=== PATIENT | female | born 1980 | race Caucasian/White ===

== ENCOUNTER 2019-02-06 20:03 | Emergency (ER) | payer SELFPAY ==
--- NOTE | 2019-02-06 20:47 | ERPHSYRPT ---
- History of Present Illness Time Seen by Provider: 02/06/19 20:30 Source: patient Exam Limitations: no limitations Patient Subjective Stated Complaint: pt states about 2pm today a mirror fell and when attempted to catch it piece of glass cut her knuckles on right hand 5th digit and middle finger knuckle. no active bleeding noted. states areas throbbing Triage Nursing Assessment: A/O. speech clear, C/o throbbing in right fingers. pt states attempted to catch a mirror that was falling and cut knuckles on glass. attempted to glue lacerations closed with super glue and liquid bandage but middle finger laceration has opened back up. no redness or drainage noted. no active bleeding. Physician History: Used home skin glue; one lac held OK the other on the middle finger broke open; no bleeding. Tetanus UTD Allergies/Adverse Reactions: No Known Drug Allergies Allergy (Unverified 11/19/15 22:29) Home Medications: Pregabalin [Lyrica 75 mg Cap] 75 mg PO BID 02/06/19 [History] Hx Tetanus, Diphtheria Vaccination/Date Given: Yes Hx Influenza Vaccination/Date Given: No Hx Pneumococcal Vaccination/Date Given: No Immunizations Up to Date: Yes - Past Medical History Pertinent Past Medical History: No Neurological History: No Pertinent History ENT History: No Pertinent History Cardiac History: No Pertinent History Respiratory History: No Pertinent History Endocrine Medical History: No Pertinent History Musculoskeletal History: No Pertinent History GI Medical History: No Pertinent History History: No Pertinent History Psycho-Social History: Anxiety Female Reproductive Disorders: No Pertinent History Other Medical History: tail bone fracture, toe fracture - Past Surgical History Past Surgical History: Yes Neuro Surgical History: No Pertinent History Cardiac: No Pertinent History Respiratory: No Pertinent History Gastrointestinal: Appendectomy Genitourinary: No Pertinent History Musculoskeletal: No Pertinent History Female Surgical History: Tubal Ligation Other Surgical History: rhinoplasty - Social History Smoking Status: Current every day smoker How long have you smoked: 16 Exposure to second hand smoke: Yes Drug Use: none Patient Lives Alone: No - Female History Hx Last Menstrual Period: 3 weeks ago Hx Now: No - Nursing Vital Signs Nursing Vital Signs: Initial Vital Signs Temperature 98.3 F 02/06/19 20:03 Pulse Rate 83 02/06/19 20:03 Respiratory Rate 16 02/06/19 20:03 Blood Pressure 101/69 02/06/19 20:03 O2 Sat by Pulse Oximetry 99 02/06/19 20:03 Pain Scale Pain Intensity 1 - Physical Exam SpO2: 99 - Course Nursing assessment & vital signs reviewed: Yes Ordered Tests: Active Orders 24 hr Category Date Time Status Wound Care STAT Care 02/06/19 20:47 Active - Departure Departure Disposition: Home Clinical Impression: Finger laceration Qualifiers: Encounter type: initial encounter Finger: middle finger Damage to nail status: without damage Foreign body presence: without foreign body Laterality: right Qualified Code(s): S61.212A - Laceration without foreign body of right middle finger without damage to nail, initial encounter Condition: Stable Critical Care Time: No Referrals: STAN MORTON [Primary Care Provider] - Instructions: Wound Care (DC) Additional Instructions: Watch for signs of infection; follow up with primary care as needed.
[2019-02-06 21:10] VITALS: BP 93/71; PULSE 82
[2019-02-06 22:47] VITALS: O2SAT 99
== END 2019-02-06 20:50 | disposition home or self-care (01) ==
LOC: ED 20:03
DX: S61.212A Laceration without foreign body of right middle finger without damage to nail, initial encounter (principal); W25.XXXA Contact with sharp glass, initial encounter
CPT/HCPCS: 99283

== ENCOUNTER 2020-09-01 21:05 | Emergency (ER) | payer OTHER ==
[2020-09-01] MEDS ORDERED: Zofran 4 MG/2 ML VIAL IV ONE (21:16)
[2020-09-01] MEDS ORDERED: PROTONIX 40 MG IV IV ONE ×2 (21:16→21:28)
[2020-09-01] MEDS ORDERED: Sodium Chloride 0.9% 1000 ML 1,000 ML IV STA (21:16)
--- NOTE | 2020-09-01 21:22 | ERPHSYRPT ---
- History of Present Illness Time Seen by Provider: 09/01/20 21:15 Historian: patient Exam Limitations: no limitations Physician History: This patient is a 40-year-old white female who states that she has been vomiting intermittently for a month. She does not have a primary care physician has never seen a cathode washer. She states that she has had an appendectomy in the past. Patient states that she has no known drug allergies and she is not on any medications. Patient states that she cannot hold anything down. She has never had anything like this in the past. She does not have a cough. She has no fever. She has no chest pain. She is not short of breath. Timing/Duration: intermittent, worse, other (Intermittent vomiting for 1 month) Activities at Onset: none Quality: aching Abdominal Pain Onset Location: RUQ Pain Radiation: RUQ Severity of Pain-Max: moderate Severity of Pain-Current: moderate Modifying Factors: Improves With: vomiting Associated Symptoms: loss of appetite, nausea, vomiting, No chest pain, No diaphoresis, No diarrhea, No fever/chills Previous symptoms: no prior history Allergies/Adverse Reactions: No Known Drug Allergies Allergy (Verified 09/01/20 21:38) Hx Tetanus, Diphtheria Vaccination/Date Given: Yes Hx Influenza Vaccination/Date Given: No Hx Pneumococcal Vaccination/Date Given: No Travel Risk - International Travel Have you traveled outside of the country in past 3 weeks: No - Coronavirus Screening Are you exhibiting any of the following symptoms?: No Close contact with a COVID-19 positive Pt in past 14-21 Days: No - Review of Systems Constitutional: Weakness Eyes: No Symptoms Ears, Nose, & Throat: No Symptoms Respiratory: No Symptoms Cardiac: No Symptoms Abdominal/Gastrointestinal: Abdominal Pain, Nausea, Vomiting, No Diarrhea Genitourinary Symptoms: No Symptoms Musculoskeletal: No Symptoms Skin: No Symptoms Neurological: No Symptoms Psychological: No Symptoms Endocrine: No Symptoms Hematologic/Lymphatic: No Symptoms Immunological/Allergic: No Symptoms All Other Systems: Reviewed and Negative - Past Medical History Pertinent Past Medical History: No Neurological History: No Pertinent History ENT History: No Pertinent History Cardiac History: No Pertinent History Respiratory History: No Pertinent History Endocrine Medical History: No Pertinent History Musculoskeletal History: No Pertinent History GI Medical History: No Pertinent History History: No Pertinent History Psycho-Social History: Anxiety Female Reproductive Disorders: No Pertinent History Other Medical History: tail bone fracture, toe fracture - Past Surgical History Past Surgical History: Yes Neuro Surgical History: No Pertinent History Cardiac: No Pertinent History Respiratory: No Pertinent History Gastrointestinal: Appendectomy Genitourinary: No Pertinent History Musculoskeletal: No Pertinent History Female Surgical History: Tubal Ligation Other Surgical History: rhinoplasty - Social History Smoking Status: Current every day smoker How long have you smoked: 16 Exposure to second hand smoke: Yes Drug Use: none Patient Lives Alone: No - Nursing Vital Signs Nursing Vital Signs: Initial Vital Signs Temperature 98.3 F 09/01/20 21:13 Pulse Rate 130 H 09/01/20 21:13 Respiratory Rate 18 09/01/20 21:13 Blood Pressure 113/88 09/01/20 21:13 O2 Sat by Pulse Oximetry 98 09/01/20 21:13 Pain Scale Pain Intensity 6 - Physical Exam General Appearance: mild distress, alert, anxiety, thin Eye Exam: PERRL/EOMI, eyes nml inspection Ears, Nose, Throat Exam: normal ENT inspection, moist mucous membranes Neck Exam: normal inspection, non-tender, supple, full range of motion Respiratory Exam: normal breath sounds, lungs clear, airway intact, No chest tenderness, No respiratory distress Cardiovascular Exam: regular rate/rhythm, normal heart sounds, normal peripheral pulses Gastrointestinal/Abdomen Exam: soft, normal bowel sounds, tenderness (Right upper quadrant), guarding, No rebound Pelvic Exam: not done Rectal Exam: not done Back Exam: normal inspection, normal range of motion, No CVA tenderness, No vertebral tenderness Extremity Exam: normal inspection, normal range of motion, pelvis stable Neurologic Exam: alert, oriented x 3, cooperative, 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 She stated this is not normal for her she states that her legs ache) Skin Exam: normal color, warm, dry Lymphatic Exam: No adenopathy SpO2 Interpretation: normal O2 Delivery: Room Air - Course Nursing assessment & vital signs reviewed: Yes Ordered Tests: Active Orders 24 hr Category Date Time Status IV Insertion STAT Care 09/01/20 21:16 Active ABDOMEN AND PELVIS W/0 CONTRAS [CT] Stat Exams 09/01/20 21:42 Taken AMYLASE Stat Lab 09/01/20 21:25 Completed BLOOD CULTURE Stat Lab 09/01/20 21:25 Received CBC W DIFF Stat Lab 09/01/20 21:25 Completed CMP Stat Lab 09/01/20 21:25 Completed HCG,QUALITATIVE URINE Stat Lab 09/01/20 21:16 Ordered INFLUENZA A+B SHEBA Stat Lab 09/01/20 21:30 Received LIPASE Stat Lab 09/01/20 21:25 Completed Lactic Acid Stat Lab 09/01/20 21:22 Completed MAG [MAGNESIUM] Stat Lab 09/01/20 21:20 Completed UA W/RFX UR CULTURE Stat Lab 09/01/20 21:16 Ordered Urine Triage Profile Stat Lab 09/01/20 21:16 Ordered Medication Summary Generic Name Dose Route Start Last Admin Trade Name Freq PRN Reason Stop Dose Admin Sodium Chloride 1,000 mls @ 999 mls/hr 09/01/20 21:16 09/01/20 21:31 Sodium Chloride 0.9% 1000 Ml IV 09/01/20 22:16 999 mls/hr .Q1H1M STA Administration Sodium Chloride 1,000 mls @ 999 mls/hr 09/01/20 21:50 09/01/20 22:10 Sodium Chloride 0.9% 1000 Ml IV 09/01/20 22:50 Not Given .Q1H1M STA Potassium Chloride 20 meq in 100 mls @ 50 mls/hr 09/01/20 22:10 Potassium Chloride 20 Meq In Water 100ml IV 09/02/20 00:09 STAT ONE Potassium Chloride/Sodium Chloride 1,000 mls @ 100 mls/hr 09/01/20 22:15 Sodium Chloride 0.9% W/ 20 Meq Kcl/Liter IV 10/01/20 22:14 .Q10H JULIANNA Discontinued Medications Generic Name Dose Route Start Last Admin Trade Name Freq PRN Reason Stop Dose Admin Sodium Chloride Confirm 09/01/20 21:28 Sodium Chloride 0.9% 1000 Ml Administered 09/01/20 21:29 Dose 1,000 mls @ ud .ROUTE .STK-MED ONE Ondansetron HCl 4 mg 09/01/20 21:16 09/01/20 21:30 Zofran 4 Mg/2 Ml Vial IV 09/01/20 21:17 4 mg STAT ONE Administration Ondansetron HCl Confirm 09/01/20 21:28 Zofran 4 Mg/2 Ml Vial Administered 09/01/20 21:29 Dose 4 mg .ROUTE .STK-MED ONE Pantoprazole Sodium 40 mg 09/01/20 21:16 09/01/20 21:29 Protonix 40 Mg Iv IV 09/01/20 21:17 40 mg STAT ONE Administration Pantoprazole Sodium Confirm 09/01/20 21:28 Protonix 40 Mg Iv Administered 09/01/20 21:29 Dose 40 mg IV .STK-MED ONE Lab/Rad Data: Laboratory Result Diagrams 09/01/20 21:25 09/01/20 21:25 Laboratory Results 09/01/20 09/01/20 09/01/20 Range/Units 21:25 21:25 21:22 WBC 11.6 H (4.0-10.5) K/mm3 RBC 3.79 L (4.1-5.4) M/mm3 Hgb 13.4 (12.0-16.0) gm/dl Hct 39.3 (35-47) % MCV 103.7 H (78-100) fl MCH 35.4 H (26-32) pg MCHC 34.1 (32-36) g/dl RDW 14.2 H (11.5-14.0) % Plt Count 401 (150-450) K/mm3 MPV 10.8 (7.5-11.0) fl Gran % 61.3 (36.0-66.0) % Eos # (Auto) 0.10 (0-0.5) Absolute Lymphs (auto) 3.13 (1.0-4.6) Absolute Monos (auto) 1.20 (0.0-1.3) Lymphocytes % 27.1 (24.0-44.0) % Monocytes % 10.4 (0.0-12.0) % Eosinophils % 0.9 (0.00-5.0) % Basophils % 0.3 (0.0-0.4) % Absolute Granulocytes 7.09 H (1.4-6.9) Basophils # 0.03 (0-0.4) Sodium 128 L (137-145) mmol/L Potassium 2.3 L* (3.5-5.1) mmol/L Chloride 96 L (98-107) mmol/L Carbon Dioxide 18 L (22-30) mmol/L Anion Gap 15.7 H (5-15) MEQ/L BUN 5 L (7-17) mg/dL Creatinine 0.64 (0.52-1.04) mg/dL Estimated GFR > 60.0 ML/MIN Glucose 117 H (74-106) mg/dL Lactic Acid 5.4 H (0.4-2.0) Calcium 8.8 (8.4-10.2) mg/dL Magnesium (1.6-2.3) mg/dL Total Bilirubin 0.40 (0.2-1.3) mg/dL AST 35 (14-36) U/L ALT 18 (0-35) U/L Alkaline Phosphatase 84 (38-126) U/L Serum Total Protein 6.5 (6.3-8.2) g/dL Albumin 3.6 (3.5-5.0) g/dL Amylase 56 (30-110) U/L Lipase 50 (23-300) U/L 09/01/20 Range/Units 21:20 WBC (4.0-10.5) K/mm3 RBC (4.1-5.4) M/mm3 Hgb (12.0-16.0) gm/dl Hct (35-47) % MCV (78-100) fl MCH (26-32) pg MCHC (32-36) g/dl RDW (11.5-14.0) % Plt Count (150-450) K/mm3 MPV (7.5-11.0) fl Gran % (36.0-66.0) % Eos # (Auto) (0-0.5) Absolute Lymphs (auto) (1.0-4.6) Absolute Monos (auto) (0.0-1.3) Lymphocytes % (24.0-44.0) % Monocytes % (0.0-12.0) % Eosinophils % (0.00-5.0) % Basophils % (0.0-0.4) % Absolute Granulocytes (1.4-6.9) Basophils # (0-0.4) Sodium (137-145) mmol/L Potassium (3.5-5.1) mmol/L Chloride (98-107) mmol/L Carbon Dioxide (22-30) mmol/L Anion Gap (5-15) MEQ/L BUN (7-17) mg/dL Creatinine (0.52-1.04) mg/dL Estimated GFR ML/MIN Glucose (74-106) mg/dL Lactic Acid (0.4-2.0) Calcium (8.4-10.2) mg/dL Magnesium 1.6 (1.6-2.3) mg/dL Total Bilirubin (0.2-1.3) mg/dL AST (14-36) U/L ALT (0-35) U/L Alkaline Phosphatase (38-126) U/L Serum Total Protein (6.3-8.2) g/dL Albumin (3.5-5.0) g/dL Amylase (30-110) U/L Lipase (23-300) U/L - Progress Progress: improved, pain not gone completely, re-examined Progress Note: 09/01/20 22:12 CAT scan of the abdomen pelvis shows a small hiatal hernia, moderately distended gallbladder without stones and a left ovarian cyst measuring 3.7 cm Counseled pt/family regarding: lab results, diagnosis, need for follow-up, rad results - Departure Departure Disposition: Home Clinical Impression: Hypokalemia, Vomiting Condition: Stable Critical Care Time: No Additional Instructions: Drink plenty of fluids. Avoid fatty greasy spicy foods. Take your medications as prescribed. Follow-up on 09/03/2020 and the lab to have your potassium level rechecked. Prescriptions: Potassium Chloride 10 Meq Tab* [Klor Con 10 MEQ] 10 meq PO BID #10 tab Pantoprazole 20 mg [Protonix 20MG Tablet] 20 mg PO DAILY #10 tab Ondansetron HCl [Zofran] 4 mg PO TID PRN #10 tablet PRN Reason: Nausea/Vomiting
[2020-09-01] MEDS ORDERED: Sodium Chloride 0.9% 1000 ML 1,000 ML ONE ×2 (21:28→23:11)
[2020-09-01] MEDS ORDERED: Zofran 4 MG/2 ML VIAL ONE (21:28)
[2020-09-01 21:39] LABS: Absolute Neutrophil Ct (ANC) 7.09 (1.4-6.9); BASOPHIL % 0.3 % (0.0-0.4); Basophil (Absolute #) 0.03 (0-0.4); Eosinophil % 0.9 % (0.00-5.0); Hematocrit 39.3 % (35-47); Hemoglobin 13.4 gm/dl (12.0-16.0); Lymphocyte (Absolute #) 3.13 (1.0-4.6); Lymphocytes % 27.1 % (24.0-44.0); Mean Cell Volume 103.7 fl (78-100); Mean Corpuscular Hemoglobin 35.4 pg (26-32); Mean Corpuscular Hgb Concent. 34.1 g/dl (32-36); Mean Platelet Volume 10.8 fl (7.5-11.0); Monocytes % 10.4 % (0.0-12.0); Neutrophil % 61.3 % (36.0-66.0); Platelet Count 401 K/mm3 (150-450); Red Blood Count 3.79 M/mm3 (4.1-5.4); Red Cell Distribution Width 14.2 % (11.5-14.0); White Blood Count 11.6 K/mm3 (4.0-10.5)
[2020-09-01 21:52] LABS: ALBUMIN 3.6 g/dL (3.5-5.0); ALKALINE PHOSPHATASE 84 U/L (38-126); AMYLASE 56 U/L (30-110); ANION GAP 15.7 MEQ/L (5-15); BLOOD UREA NITROGEN 5 mg/dL (7-17); CHLORIDE 96 mmol/L (98-107); Calcium 8.8 mg/dL (8.4-10.2); Carbon Dioxide 18 mmol/L (22-30); Creatinine 1 0.64 mg/dL (0.52-1.04); EST GLOMERULAR FILTRATION RATE > 60.0 ML/MIN; Glucose 117 mg/dL (74-106); LIPASE 50 U/L (23-300); SGOT/AST 35 U/L (14-36); SODIUM 128 mmol/L (137-145); Total Protein 6.5 g/dL (6.3-8.2)
[2020-09-01 21:59] LABS: SGPT/ALT 18 U/L (0-35)
[2020-09-01 22:01] LABS: Potassium 2.3 mmol/L (3.5-5.1)
[2020-09-01] MEDS ORDERED: POTASSIUM CHLORIDE 20 mEq IN WATER 100ML 20 MEQ/100 ML BAG IV ONE (22:10)
[2020-09-01] MEDS: Sodium Chloride 0.9% 1000 ML 1,000 ML IV STA ×2 (22:10→23:22)
[2020-09-01] MEDS ORDERED: Sodium Chloride 0.9% W/ 20 mEq KCl/LITER 1,000 ML IV SCH (22:15)
[2020-09-01] MEDS ORDERED: Hydromorphone 1 mg/ml Injection IV ONE (22:18)
[2020-09-01] MEDS ORDERED: Sodium Chloride 0.9% W/ 20 mEq KCl/LITER 1,000 ML IV ONE (22:21)
[2020-09-01] MEDS ORDERED: Hydromorphone 1 mg/ml Injection ONE (22:21)
[2020-09-01 22:24] LABS: INFLUENZA A NEGATIVE (NEGATIVE); INFLUENZA B NEGATIVE (NEGATIVE)
[2020-09-01] MEDS ORDERED: POTASSIUM CHLORIDE 20 mEq IN WATER 100ML 100 ML IV ONE (23:11)
[2020-09-02 01:04] VITALS: O2SAT 98
[2020-09-02 01:52] LABS: Amourphous Crystal FEW /HPF (NEGATIVE); Appearance SLIGHTLY CLOUDY (CLEAR); Bacteria MANY /HPF (NEGATIVE); Bilirubin NEGATIVE (NEGATIVE); Blood SMALL Ery/ul (0-5); Epithelial Cells RARE /HPF (FEW); Glucose NEGATIVE (NEGATIVE); Ketones NEGATIVE (NEGATIVE); Leukocyte Esterase SMALL (NEGATIVE); Mucus SLIGHT /HPF (NEGATIVE); Nitrite POSITIVE (NEGATIVE); Protein,Urine Dip NEGATIVE (Negative); Specific Gravity 1.002 (1.005-1.025); Urobilinogen NEGATIVE mg/dL (0-1)
[2020-09-02 01:54] LABS: RBC 0-2 /HPF (0-2)
[2020-09-02] MEDS ORDERED: Levofloxacin 500 MG Tablet PO ONE (02:02)
[2020-09-02 02:03] LABS: Amphetamine,Urine NEGATIVE (NEGATIVE); Barbiturate,Urine NEGATIVE (NEGATIVE); Benzodiazepine,Urine NEGATIVE (NEGATIVE); Cocaine,Urine NEGATIVE (NEGATIVE); Methadone,Urine NEGATIVE (NEGATIVE); Opiate,Urine NEGATIVE (NEGATIVE); PCP,Urine NEGATIVE (NEGATIVE); THC,Urine NEGATIVE (NEGATIVE)
[2020-09-02] MEDS ORDERED: Levofloxacin 500 MG Tablet ONE (02:05)
[2020-09-02 02:25] VITALS: BP 112/71; PULSE 84
--- NOTE | 2020-09-02 09:19 | XRAY ---
Indication: Vomiting. Right abdomen pain 1 month. Multiple contiguous axial images obtained through the abdomen and pelvis without contrast as ordered. Comparison: None Lung bases demonstrates mild emphysema and left base fibrosis/scarring. No infiltrate or effusion. Heart is not enlarged. Small hiatal hernia. Noncontrasted stomach and bowel loops appear nonobstructed. Appendectomy reported. 3.7 cm left ovary cyst. No free fluid/air. Gallbladder is moderately distended without gallstones. Splenic calcified granulomas. Remaining liver, gallbladder, pancreas, spleen, adrenal glands, kidneys, ureters, bladder, uterus, and aorta appear unremarkable for noncontrast exam. Osseous structures intact. Impression: 1. 3.7 cm left ovary cyst better evaluated with pelvic sonogram if clinically warranted. 2. Distended gallbladder. Gallbladder sonogram may yield further information. 3. Small hiatal hernia and pulmonary emphysema. 4. Remaining CT abdomen/pelvis without contrast exam is negative.
== END 2020-09-02 02:24 | disposition home or self-care (01) ==
LOC: ED 21:05
DX: N39.0 Urinary tract infection, site not specified (principal); E87.6 Hypokalemia; Z79.899 Other long term (current) drug therapy; K44.9 Diaphragmatic hernia without obstruction or gangrene; R11.2 Nausea with vomiting, unspecified; R63.0 Anorexia
CPT/HCPCS: 36000; 36415; 74176; 80053; 80307; 81001; 82150; 83605; 83690; 83735; 84703; 85025; 87040; 87077; 87086; 87186; 87400; 96360; 96365; 96366; 96374; 96375; 99284; J1170; J2405; J3480; A9270-GY

== ENCOUNTER 2020-09-08 15:02 | Emergency (ER) | payer OTHER ==
[2020-09-08 16:03] LABS: Absolute Neutrophil Ct (ANC) 7.72 (1.4-6.9); BASOPHIL % 0.3 % (0.0-0.4); Basophil (Absolute #) 0.03 (0-0.4); Eosinophil % 0.8 % (0.00-5.0); Eosinophil (Absolute #) 0.08 (0-0.5); Hematocrit 32.3 % (35-47); Hemoglobin 10.6 gm/dl (12.0-16.0); Lymphocyte (Absolute #) 1.21 (1.0-4.6); Lymphocytes % 12.1 % (24.0-44.0); Mean Cell Volume 107.7 fl (78-100); Mean Corpuscular Hemoglobin 35.3 pg (26-32); Mean Corpuscular Hgb Concent. 32.8 g/dl (32-36); Mean Platelet Volume 9.8 fl (7.5-11.0); Monocyte (Absolute #) 0.93 (0.0-1.3); Monocytes % 9.3 % (0.0-12.0); Neutrophil % 77.5 % (36.0-66.0); Platelet Count 396 K/mm3 (150-450)
[2020-09-08 16:12] LABS: ALBUMIN 2.7 g/dL (3.5-5.0); ANION GAP 12.1 MEQ/L (5-15); BILIRUBIN,TOTAL 0.1 mg/dL (0.2-1.3); Calcium 7.8 mg/dL (8.4-10.2); Creatinine 1 4.35 mg/dL (0.52-1.04); MAGNESIUM 1.3 mg/dL (1.6-2.3); Potassium 3.6 mmol/L (3.5-5.1); Total Protein 5.4 g/dL (6.3-8.2)
--- NOTE | 2020-09-08 16:17 | ERPHSYRPT ---
- History of Present Illness Time Seen by Provider: 09/08/20 15:30 Source: patient Exam Limitations: no limitations Patient Subjective Stated Complaint: Pt c/o of shooting pain in hands and feet, muscle contractions in legs Triage Nursing Assessment: Pt was brought to the ER by her son, eliz diaz, rates leg and hand pain as 7/10, states that her legs feel like jello when she stands, pulses normal, skin n/w/d Physician History: Patient is a 40-year-old female presents to our ED with complaints of pain in her hands legs and feet. Symptoms have been ongoing for 2 days. Patient also states her legs feel weak. She has a history of hypokalemia. Symptoms are progressive. Symptoms are mild to moderate in intensity. No specific worsening improving factors. Patient voices no other complaints or concerns at this time. Timing/Duration: yesterday Severity: moderate Modifying Factors: Improves With: nothing Associated Symptoms: denies symptoms Allergies/Adverse Reactions: No Known Drug Allergies Allergy (Verified 09/08/20 15:31) Home Medications: No Reportable Medications [No Reported Medications] 09/08/20 [History] Hx Tetanus, Diphtheria Vaccination/Date Given: Yes Hx Influenza Vaccination/Date Given: No Hx Pneumococcal Vaccination/Date Given: No Travel Risk - International Travel Have you traveled outside of the country in past 3 weeks: No - Coronavirus Screening Are you exhibiting any of the following symptoms?: No Close contact with a COVID-19 positive Pt in past 14-21 Days: No - Review of Systems Constitutional: No Symptoms, No Fever, No Chills Eyes: No Symptoms Ears, Nose, & Throat: No Symptoms Respiratory: No Symptoms, No Cough, No Dyspnea Cardiac: No Symptoms, No Chest Pain, No Edema, No Syncope Abdominal/Gastrointestinal: No Symptoms, No Abdominal Pain, No Nausea, No Vomiting, No Diarrhea Genitourinary Symptoms: No Symptoms, No Dysuria Musculoskeletal: No Symptoms, No Back Pain, No Neck Pain Skin: No Symptoms, No Rash Neurological: No Symptoms, No Dizziness, No Focal Weakness, No Sensory Changes Psychological: No Symptoms Endocrine: No Symptoms Hematologic/Lymphatic: No Symptoms Immunological/Allergic: No Symptoms All Other Systems: Reviewed and Negative - Past Medical History Pertinent Past Medical History: Yes Neurological History: No Pertinent History ENT History: No Pertinent History Cardiac History: No Pertinent History Respiratory History: No Pertinent History Endocrine Medical History: No Pertinent History Musculoskeletal History: No Pertinent History, Fibromyalgia GI Medical History: No Pertinent History History: No Pertinent History Psycho-Social History: Anxiety Female Reproductive Disorders: No Pertinent History Other Medical History: tail bone fracture, toe fracture - Past Surgical History Past Surgical History: Yes Neuro Surgical History: No Pertinent History Cardiac: No Pertinent History Respiratory: No Pertinent History Gastrointestinal: Appendectomy Genitourinary: No Pertinent History Musculoskeletal: No Pertinent History Female Surgical History: Tubal Ligation Other Surgical History: rhinoplasty - Social History Smoking Status: Current every day smoker How long have you smoked: 16 Exposure to second hand smoke: Yes Drug Use: none Patient Lives Alone: No - Female History Hx Now: No (tubal) - Nursing Vital Signs Nursing Vital Signs: Initial Vital Signs Temperature 98.9 F 09/08/20 15:22 Pulse Rate 84 09/08/20 15:22 Blood Pressure 113/81 09/08/20 15:22 O2 Sat by Pulse Oximetry 99 09/08/20 15:22 Pain Scale Pain Intensity 7 - Physical Exam General Appearance: no apparent distress, alert, other (Patient sitting up in bed. She is conversant well-appearing no acute distress. However there are spasms observed of her feet and her hands.) Eye Exam: PERRL/EOMI, eyes nml inspection Ears, Nose, Throat Exam: normal ENT inspection, TMs normal, pharynx normal, moist mucous membranes Neck Exam: normal inspection, non-tender, supple, full range of motion Respiratory Exam: normal breath sounds, lungs clear, No respiratory distress Cardiovascular Exam: regular rate/rhythm, normal heart sounds, normal peripheral pulses Gastrointestinal/Abdomen Exam: soft, normal bowel sounds, No tenderness, No mass Back Exam: normal inspection, normal range of motion, No CVA tenderness, No vertebral tenderness Extremity Exam: normal inspection, normal range of motion, pelvis stable Neurologic Exam: alert, oriented x 3, cooperative, normal mood/affect, nml cerebellar function, nml station & gait, sensation nml, No motor deficits Skin Exam: normal color, warm, dry, No rash Lymphatic Exam: No adenopathy SpO2: 99 O2 Delivery: Room Air - Course Nursing assessment & vital signs reviewed: Yes EKG Interpreted by Me: RATE (89), Sinus Rhythm, NORMAL AXIS, NORMAL INTERVALS Ordered Tests: Active Orders 24 hr Category Date Time Status Travelift Operator STAT Care 09/08/20 15:31 Active EKG-ER Only STAT Care 09/08/20 15:30 Active IV Insertion STAT Care 09/08/20 15:30 Active Pulse Oximetry (ED) STAT Care 09/08/20 15:30 Active CHEST 1 VIEW (PORTABLE) Stat Exams 09/08/20 15:33 Completed CBC W DIFF Stat Lab 09/08/20 15:50 Completed CK-Creatinine Phosphokinase Stat Lab 09/08/20 15:50 Completed CMP Stat Lab 09/08/20 15:50 Completed CULTURE,URINE Stat Lab 09/08/20 17:22 Received HCG,QUALITATIVE URINE Stat Lab 09/08/20 17:22 Completed MAGNESIUM Stat Lab 09/08/20 15:50 Completed TROPONIN Q3H Lab 09/08/20 15:50 Completed TROPONIN Q3H Lab 09/08/20 18:45 Ordered TROPONIN Q3H Lab 09/08/20 21:45 Ordered TROPONIN Q3H Lab 09/09/20 00:45 Ordered TROPONIN Q3H Lab 09/09/20 03:45 Ordered TSH [TSH, 3RD Generation] Stat Lab 09/08/20 15:50 Completed UA W/RFX UR CULTURE Stat Lab 09/08/20 17:22 Completed Medication Summary Generic Name Dose Route Start Last Admin Trade Name Freq PRN Reason Stop Dose Admin Ceftriaxone Sodium/Dextrose 1 g in 50 mls @ 100 mls/hr 09/08/20 18:05 Rocephin 1 Gm-D5w 50 Ml Bag IV 09/08/20 18:34 STAT ONE Sodium Chloride 1,000 mls @ 100 mls/hr 09/08/20 18:15 Sodium Chloride 0.9% 1000 Ml IV 10/08/20 18:14 .Q10H JULIANNA Magnesium Sulfate/Dextrose 100 mls @ 100 mls/hr 09/08/20 18:15 Magnesium 1 Gm / 100 Ml D5w IV 09/08/20 20:14 Q1H JULIANNA Lab/Rad Data: Laboratory Result Diagrams 09/08/20 15:50 09/08/20 15:50 Laboratory Results 09/08/20 09/08/20 09/08/20 Range/Units 17:22 17:22 15:50 WBC 10.0 (4.0-10.5) K/mm3 RBC 3.00 L (4.1-5.4) M/mm3 Hgb 10.6 L (12.0-16.0) gm/dl Hct 32.3 L (35-47) % MCV 107.7 H (78-100) fl MCH 35.3 H (26-32) pg MCHC 32.8 (32-36) g/dl RDW 14.0 (11.5-14.0) % Plt Count 396 (150-450) K/mm3 MPV 9.8 (7.5-11.0) fl Gran % 77.5 H (36.0-66.0) % Eos # (Auto) 0.08 (0-0.5) Absolute Lymphs (auto) 1.21 (1.0-4.6) Absolute Monos (auto) 0.93 (0.0-1.3) Lymphocytes % 12.1 L (24.0-44.0) % Monocytes % 9.3 (0.0-12.0) % Eosinophils % 0.8 (0.00-5.0) % Basophils % 0.3 (0.0-0.4) % Absolute Granulocytes 7.72 H (1.4-6.9) Basophils # 0.03 (0-0.4) Sodium (137-145) mmol/L Potassium (3.5-5.1) mmol/L Chloride (98-107) mmol/L Carbon Dioxide (22-30) mmol/L Anion Gap (5-15) MEQ/L BUN (7-17) mg/dL Creatinine (0.52-1.04) mg/dL Estimated GFR ML/MIN Glucose (74-106) mg/dL Calcium (8.4-10.2) mg/dL Magnesium (1.6-2.3) mg/dL Total Bilirubin (0.2-1.3) mg/dL AST (14-36) U/L ALT (0-35) U/L Alkaline Phosphatase (38-126) U/L Creatine Kinase (30-135) U/L Troponin I (0.000-0.034) ng/mL Serum Total Protein (6.3-8.2) g/dL Albumin (3.5-5.0) g/dL TSH 3rd Generation (0.47-4.68) mIU/L Urine Color YELLOW (YELLOW) Urine Appearance TURBID (CLEAR) Urine pH 6.0 (5-6) Ur Specific [place] 1.010 (1.005-1.025) Urine Protein 100 (Negative) Urine Ketones NEGATIVE (NEGATIVE) Urine Blood SMALL (0-5) Cristofer/ul Urine Nitrite NEGATIVE (NEGATIVE) Urine Bilirubin NEGATIVE (NEGATIVE) Urine Urobilinogen NEGATIVE (0-1) mg/dL Ur Leukocyte Esterase LARGE (NEGATIVE) Urine WBC (Auto) >100 (0-5) /HPF Urine RBC (Auto) 51-100 (0-2) /HPF U Epithel Cells (Auto) PACKED (FEW) /HPF Urine Bacteria (Auto) MANY (NEGATIVE) /HPF Urine Mucus (Auto) SLIGHT (NEGATIVE) /HPF Urine Culture Reflexed YES (NO) Urine Glucose NEGATIVE (NEGATIVE) mg/dL Urine HCG, Qual NEGATIVE (Negative) 09/08/20 09/08/20 09/08/20 Range/Units 15:50 15:50 15:50 WBC (4.0-10.5) K/mm3 RBC (4.1-5.4) M/mm3 Hgb (12.0-16.0) gm/dl Hct (35-47) % MCV (78-100) fl MCH (26-32) pg MCHC (32-36) g/dl RDW (11.5-14.0) % Plt Count (150-450) K/mm3 MPV (7.5-11.0) fl Gran % (36.0-66.0) % Eos # (Auto) (0-0.5) Absolute Lymphs (auto) (1.0-4.6) Absolute Monos (auto) (0.0-1.3) Lymphocytes % (24.0-44.0) % Monocytes % (0.0-12.0) % Eosinophils % (0.00-5.0) % Basophils % (0.0-0.4) % Absolute Granulocytes (1.4-6.9) Basophils # (0-0.4) Sodium 133 L (137-145) mmol/L Potassium 3.6 (3.5-5.1) mmol/L Chloride 103 (98-107) mmol/L Carbon Dioxide 22 (22-30) mmol/L Anion Gap 12.1 (5-15) MEQ/L BUN 8 (7-17) mg/dL Creatinine 4.35 H (0.52-1.04) mg/dL Estimated GFR 12.0 ML/MIN Glucose 93 (74-106) mg/dL Calcium 7.8 L (8.4-10.2) mg/dL Magnesium 1.3 L (1.6-2.3) mg/dL Total Bilirubin 0.10 L (0.2-1.3) mg/dL AST 36 (14-36) U/L ALT 9 (0-35) U/L Alkaline Phosphatase 69 (38-126) U/L Creatine Kinase 56 (30-135) U/L Troponin I < 0.012 (0.000-0.034) ng/mL Serum Total Protein 5.4 L (6.3-8.2) g/dL Albumin 2.7 L (3.5-5.0) g/dL TSH 3rd Generation 0.579 (0.47-4.68) mIU/L Urine Color (YELLOW) Urine Appearance (CLEAR) Urine pH (5-6) Ur Specific [place] (1.005-1.025) Urine Protein (Negative) Urine Ketones (NEGATIVE) Urine Blood (0-5) Cristofer/ul Urine Nitrite (NEGATIVE) Urine Bilirubin (NEGATIVE) Urine Urobilinogen (0-1) mg/dL Ur Leukocyte Esterase (NEGATIVE) Urine WBC (Auto) (0-5) /HPF Urine RBC (Auto) (0-2) /HPF U Epithel Cells (Auto) (FEW) /HPF Urine Bacteria (Auto) (NEGATIVE) /HPF Urine Mucus (Auto) (NEGATIVE) /HPF Urine Culture Reflexed (NO) Urine Glucose (NEGATIVE) mg/dL Urine HCG, Qual (Negative) - Progress Progress: improved Progress Note: 09/08/20 18:10 Patient reassessed. No active spasms at this time. Work-up reveals a megaloblastic anemia. It appears that patient had lab work done approximately 1 week ago. Her hemoglobin at that time was approximately 13. In a week's time patient has had a 3 g drop in her hemoglobin. Additionally her creatinine is normal as well. Creatinine today is elevated at 4.35. Patient states that her urine output over the past week has been significantly decreased. Magnesium is low as well. We will replace patient's magnesium. Potassium is low as well. UTI observed on today's work-up. Patient received a dose of Rocephin. Patient will require renal consultation. We will transfer patient to [facility] for further evaluation and treatment. Case discussed with Dr. Tirado and emergency physician at [facility] who accepts transfer. Plan of care discussed with patient. She agrees to transfer to [facility] for further evaluation and treatment. Counseled pt/family regarding: diagnosis, rad results - Departure Departure Disposition: Transfer Clinical Impression: Acute renal injury, Megaloblastic anemia, Hypomagnesemia, Hypocalcemia, UTI (urinary tract infection), Muscle spasm Condition: Stable Critical Care Time: No Referrals: DOCTOR,NO FAMILY [Primary Care Provider] -
--- NOTE | 2020-09-08 16:37 | XRAY ---
Indication: Weakness. Comparison: November 19, 2015. Portable chest again demonstrates normal heart and lungs. Bony thorax intact. No new/acute abnormalities.
[2020-09-08 17:50] LABS: Appearance TURBID (CLEAR); Bacteria MANY /HPF (NEGATIVE); Bilirubin NEGATIVE (NEGATIVE); Blood SMALL Ery/ul (0-5); Epithelial Cells PACKED /HPF (FEW); Glucose NEGATIVE (NEGATIVE); Ketones NEGATIVE (NEGATIVE); Leukocyte Esterase LARGE (NEGATIVE); Mucus SLIGHT /HPF (NEGATIVE); Nitrite NEGATIVE (NEGATIVE); Protein,Urine Dip 100 (Negative); RBC 51-100 /HPF (0-2); Urobilinogen NEGATIVE mg/dL (0-1); WBC >100 /HPF (0-5)
[2020-09-08] MEDS ORDERED: ROCEPHIN 1 Gm-D5w 50 ml Bag** 1 G/50 ML IVPB IV ONE ×2 (18:05→18:12)
[2020-09-08] MEDS ORDERED: Magnesium 1 Gm / 100 Ml D5W*** 100 ML IV ONE ×2 (18:12→18:56)
[2020-09-08] MEDS ORDERED: Sodium Chloride 0.9% 1000 ML 1,000 ML ONE (18:12)
[2020-09-08] MEDS: Magnesium 1 Gm / 100 Ml D5W*** 100 ML IV SCH ×2 (18:13→18:59)
[2020-09-08] MEDS ORDERED: Sodium Chloride 0.9% 1000 ML 1,000 ML IV SCH (18:15)
[2020-09-08 20:20] VITALS: BP 110/77
[2020-09-08 20:21] VITALS: PULSE 84; O2SAT 98
== END 2020-09-08 20:34 | disposition short-term general hospital (02) ==
LOC: ED 15:02
DX: M79.642 Pain in left hand (principal); M79.641 Pain in right hand; M79.605 Pain in left leg; M79.604 Pain in right leg; N17.9 Acute kidney failure, unspecified; N39.0 Urinary tract infection, site not specified; M62.838 Other muscle spasm; E83.51 Hypocalcemia; E83.42 Hypomagnesemia; D53.1 Other megaloblastic anemias, not elsewhere classified; F17.210 Nicotine dependence, cigarettes, uncomplicated
CPT/HCPCS: 36415; 71045; 80053; 81001; 82550; 83735; 84443; 84484; 84703; 85025; 87077; 87086; 87186; 93005; 93041; 94760; 96365; 99285; J0696; J3475

== ENCOUNTER 2020-09-14 08:09 | Emergency (ER) | payer OTHER ==
--- NOTE | 2020-09-14 08:27 | ERPHSYRPT ---
- History of Present Illness Time Seen by Provider: 09/14/20 08:20 Historian: patient Exam Limitations: no limitations Patient Subjective Stated Complaint: bilat hands, legs, and feet pain Triage Nursing Assessment: pt to ED c/o cramping pains in hands, legs, and feet for approx 1.5 weeks, since she was here last. rates 8/10 pain. pt states she w as admitted to [facility] for kidney biopsy but does not have results yet. pt states pain has been constant since leaving ED on 09/08. ambulatory from WC to bed with stand by assist. A&ox3. Physician History: Patient is a 40-year-old female presents to our ED with complaints of cramping of her feet and hands. Patient was in our ED approximately 1 week ago for the same. Patient was found to have electrolyte abnormalities. She was diagnosed with hypomagnesemia, hypocalcemia, and acute renal injury. Patient was also treated for UTI. Patient was transferred to [facility]. A kidney biopsy was performed. Results pending. Patient states she has been experiencing cramp-like symptoms since her last visit. Her symptoms never quite resolved. But symptoms have gotten progressively worse over the past couple days. Patient symptoms are the same today as compared to her last visit 1 week ago. Pain in her hands and feet are rated 8 out of 10. No trauma. No fever. No nausea or vomiting. No rash. Patient voices no other complaints or concerns at this time. Timing/Duration: today Activities at Onset: none Quality: cramping Abdominal Pain Onset Location: other (Cramping of hands and feet.) Pain Radiation: no radiation Severity of Pain-Max: moderate Severity of Pain-Current: mild Modifying Factors: Improves With: nothing Associated Symptoms: denies symptoms Previous symptoms: same symptoms as today Allergies/Adverse Reactions: No Known Drug Allergies Allergy (Verified 09/14/20 08:22) Home Medications: No Reportable Medications [No Reported Medications] 09/08/20 [History] Hx Tetanus, Diphtheria Vaccination/Date Given: Yes Hx Influenza Vaccination/Date Given: Yes Hx Pneumococcal Vaccination/Date Given: No Immunizations Up to Date: Yes Travel Risk - International Travel Have you traveled outside of the country in past 3 weeks: No - Coronavirus Screening Are you exhibiting any of the following symptoms?: No Close contact with a COVID-19 positive Pt in past 14-21 Days: No - Review of Systems Constitutional: No Symptoms, No Fever, No Chills Eyes: No Symptoms Ears, Nose, & Throat: No Symptoms Respiratory: No Symptoms, No Cough, No Dyspnea Cardiac: No Symptoms, No Chest Pain, No Edema, No Syncope Abdominal/Gastrointestinal: No Symptoms, No Abdominal Pain, No Nausea, No Vomiting, No Diarrhea Genitourinary Symptoms: No Symptoms, No Dysuria Musculoskeletal: No Symptoms, No Back Pain, No Neck Pain Skin: No Symptoms, No Rash Neurological: No Symptoms, No Dizziness, No Focal Weakness, No Sensory Changes Psychological: No Symptoms Endocrine: No Symptoms Hematologic/Lymphatic: No Symptoms Immunological/Allergic: No Symptoms All Other Systems: Reviewed and Negative - Past Medical History Pertinent Past Medical History: Yes Neurological History: No Pertinent History ENT History: No Pertinent History Cardiac History: No Pertinent History Respiratory History: No Pertinent History Endocrine Medical History: No Pertinent History Musculoskeletal History: Fibromyalgia GI Medical History: No Pertinent History History: No Pertinent History Psycho-Social History: Anxiety Female Reproductive Disorders: No Pertinent History Other Medical History: tail bone fracture, toe fracture - Past Surgical History Past Surgical History: Yes Neuro Surgical History: No Pertinent History Cardiac: No Pertinent History Respiratory: No Pertinent History Gastrointestinal: Appendectomy Genitourinary: No Pertinent History Musculoskeletal: No Pertinent History Female Surgical History: Tubal Ligation Other Surgical History: rhinoplasty - Social History Smoking Status: Current every day smoker How long have you smoked: 16 Exposure to second hand smoke: Yes Drug Use: none Patient Lives Alone: No - Female History Hx Last Menstrual Period: mid Jul Hx Now: No (tubal) - Nursing Vital Signs Nursing Vital Signs: Initial Vital Signs Temperature 98.0 F 09/14/20 08:14 Pulse Rate 96 H 09/14/20 08:14 Respiratory Rate 20 09/14/20 08:14 Blood Pressure 115/86 09/14/20 08:14 O2 Sat by Pulse Oximetry 98 09/14/20 08:14 Pain Scale Pain Intensity 5 - Physical Exam General Appearance: no apparent distress, alert Eye Exam: PERRL/EOMI, eyes nml inspection Ears, Nose, Throat Exam: normal ENT inspection, pharynx normal, moist mucous membranes Neck Exam: normal inspection, non-tender, supple, full range of motion Respiratory Exam: normal breath sounds, lungs clear, No respiratory distress Cardiovascular Exam: regular rate/rhythm, normal heart sounds Gastrointestinal/Abdomen Exam: soft, No tenderness, No mass Back Exam: normal inspection, normal range of motion, No CVA tenderness, No vertebral tenderness Extremity Exam: normal inspection, normal range of motion, pelvis stable, other (Trousseau sign observed at right upper extremity.) Neurologic Exam: alert, oriented x 3, cooperative, normal mood/affect, nml cerebellar function, sensation nml, No motor deficits Skin Exam: normal color, warm, dry Lymphatic Exam: No adenopathy SpO2 Interpretation: normal SpO2: 98 O2 Delivery: Room Air - Course Nursing assessment & vital signs reviewed: Yes Ordered Tests: Active Orders 24 hr Category Date Time Status IV Insertion STAT Care 09/14/20 08:27 Completed CBC W DIFF Stat Lab 09/14/20 08:48 Completed CMP Stat Lab 09/14/20 08:48 Completed MAGNESIUM Stat Lab 09/14/20 08:48 Completed Medication Summary Discontinued Medications Generic Name Dose Route Start Last Admin Trade Name Freq PRN Reason Stop Dose Admin Calcium Gluconate 1,000 mg 09/14/20 10:34 09/14/20 10:45 Calcium Gluconate 10% 1000 Mg IV 09/14/20 10:35 1,000 mg STAT ONE Administration Calcium Gluconate Confirm 09/14/20 10:45 Calcium Gluconate 10% 1000 Mg Administered 09/14/20 10:46 Dose 1,000 mg IV .STK-MED ONE Sodium Chloride 1,000 mls @ 100 mls/hr 09/14/20 08:30 09/14/20 08:34 Sodium Chloride 0.9% 1000 Ml IV 10/14/20 08:29 100 mls/hr .Q10H JULIANNA Administration Magnesium Sulfate/Dextrose 100 mls @ 100 mls/hr 09/14/20 10:45 09/14/20 10:45 Magnesium 1 Gm / 100 Ml D5w IV 09/14/20 12:44 100 mls/hr Q1H JULIANNA Administration Sodium Chloride Confirm 09/14/20 08:33 Sodium Chloride 0.9% 1000 Ml Administered 09/14/20 08:34 Dose 1,000 mls @ ud .ROUTE .STK-MED ONE Magnesium Sulfate/Dextrose Confirm 09/14/20 10:45 Magnesium 1 Gm / 100 Ml D5w Administered 09/14/20 10:46 Dose 100 mls @ ud IV .STK-MED ONE Morphine Sulfate 4 mg 09/14/20 08:36 09/14/20 08:39 Morphine Sulfate 4 Mg Inj IV 09/14/20 08:37 4 mg STAT ONE Administration Morphine Sulfate Confirm 09/14/20 08:38 Morphine Sulfate 4 Mg Inj Administered 09/14/20 08:39 Dose 4 mg .ROUTE .STK-MED ONE Lab/Rad Data: Laboratory Result Diagrams 09/14/20 08:48 09/14/20 08:48 Laboratory Results 09/14/20 09/14/20 09/14/20 Range/Units 08:48 08:48 08:48 WBC 7.9 (4.0-10.5) K/mm3 RBC 2.71 L (4.1-5.4) M/mm3 Hgb 9.7 L (12.0-16.0) gm/dl Hct 28.8 L (35-47) % MCV 106.3 H (78-100) fl MCH 35.8 H (26-32) pg MCHC 33.7 (32-36) g/dl RDW 13.7 (11.5-14.0) % Plt Count 465 H (150-450) K/mm3 MPV 9.7 (7.5-11.0) fl Gran % 75.5 H (36.0-66.0) % Eos # (Auto) 0.13 (0-0.5) Absolute Lymphs (auto) 1.19 (1.0-4.6) Absolute Monos (auto) 0.58 (0.0-1.3) Lymphocytes % 15.1 L (24.0-44.0) % Monocytes % 7.4 (0.0-12.0) % Eosinophils % 1.7 (0.00-5.0) % Basophils % 0.3 (0.0-0.4) % Absolute Granulocytes 5.95 (1.4-6.9) Basophils # 0.02 (0-0.4) Sodium 132 L (137-145) mmol/L Potassium 3.7 (3.5-5.1) mmol/L Chloride 102 (98-107) mmol/L Carbon Dioxide 17 L (22-30) mmol/L Anion Gap 16.4 H (5-15) MEQ/L BUN 7 (7-17) mg/dL Creatinine 0.81 (0.52-1.04) mg/dL Estimated GFR > 60.0 ML/MIN Glucose 66 L (74-106) mg/dL Calcium 8.3 L (8.4-10.2) mg/dL Magnesium 1.3 L (1.6-2.3) mg/dL Total Bilirubin 0.40 (0.2-1.3) mg/dL AST 27 (14-36) U/L ALT 9 (0-35) U/L Alkaline Phosphatase 69 (38-126) U/L Serum Total Protein 6.0 L (6.3-8.2) g/dL Albumin 3.3 L (3.5-5.0) g/dL - Progress Progress: improved Progress Note: 09/14/20 10:39 Patient reassessed. Pain improved. Patient was in our ED last week for the same. It seems like she is having a recurrence of her symptoms. Patient has carpopedal spasms likely related to abnormal electrolytes including hypocalcemia hypo-Tejas anemia. Hyponatremia anion gap acidosis. Patient also has a megaloblastic anemia. Her hemoglobin has dropped approximately 4 g in 1 month. Patient also has a newly diagnosed thrombocytosis. [facility] transfer to [facility] for nephrology evaluation. Dr. Martinez is patient's cardiac tech. She is scheduled to see him next Monday. Patient received 2 g of mag sulfate. Patient received 1 g of calcium gluconate. IV fluids infused. Plan of care discussed with patient. She agrees to transfer to [facility] for further evaluation and treatment. Patient voices no other complaints concerns at this time. Dr. Moreno ER physician at [facility] accepts transfer. Discussed with : Nataliya (Case discussed with Dr. Macias who advises transfer to [facility] as patient will require nephrology consultation. Dr. Martinez) Will see patient in: other Counseled pt/family regarding: lab results, diagnosis, rad results - Departure Departure Disposition: Transfer Clinical Impression: Megaloblastic anemia, Hyponatremia, Hypomagnesemia, Hypocalcemia, High anion gap metabolic acidosis, Carpopedal spasm, Thrombocytosis Condition: Stable Critical Care Time: No Referrals: DOCTOR,NO FAMILY [NON-STAFF PHY W/O PRIVILEGES] -
[2020-09-14] MEDS ORDERED: Sodium Chloride 0.9% 1000 ML 1,000 ML IV SCH (08:30)
[2020-09-14] MEDS ORDERED: Sodium Chloride 0.9% 1000 ML 1,000 ML ONE (08:33)
[2020-09-14] MEDS ORDERED: MORPHINE SULFATE 4 MG INJ IV ONE (08:36)
[2020-09-14] MEDS ORDERED: MORPHINE SULFATE 4 MG INJ ONE (08:38)
[2020-09-14 08:59] LABS: Absolute Neutrophil Ct (ANC) 5.95 (1.4-6.9); BASOPHIL % 0.3 % (0.0-0.4); Basophil (Absolute #) 0.02 (0-0.4); Eosinophil % 1.7 % (0.00-5.0); Eosinophil (Absolute #) 0.13 (0-0.5); Hematocrit 28.8 % (35-47); Hemoglobin 9.7 gm/dl (12.0-16.0); Lymphocyte (Absolute #) 1.19 (1.0-4.6); Lymphocytes % 15.1 % (24.0-44.0); Mean Cell Volume 106.3 fl (78-100); Mean Corpuscular Hemoglobin 35.8 pg (26-32); Mean Corpuscular Hgb Concent. 33.7 g/dl (32-36); Mean Platelet Volume 9.7 fl (7.5-11.0); Monocyte (Absolute #) 0.58 (0.0-1.3); Monocytes % 7.4 % (0.0-12.0); Neutrophil % 75.5 % (36.0-66.0); Platelet Count 465 K/mm3 (150-450); Red Blood Count 2.71 M/mm3 (4.1-5.4); Red Cell Distribution Width 13.7 % (11.5-14.0); White Blood Count 7.9 K/mm3 (4.0-10.5)
[2020-09-14 09:03] LABS: ALBUMIN 3.3 g/dL (3.5-5.0); ALKALINE PHOSPHATASE 69 U/L (38-126); ANION GAP 16.4 MEQ/L (5-15); BLOOD UREA NITROGEN 7 mg/dL (7-17); CHLORIDE 102 mmol/L (98-107); Calcium 8.3 mg/dL (8.4-10.2); Carbon Dioxide 17 mmol/L (22-30); Creatinine 1 0.81 mg/dL (0.52-1.04); EST GLOMERULAR FILTRATION RATE > 60.0 ML/MIN; Glucose 66 mg/dL (74-106); Potassium 3.7 mmol/L (3.5-5.1); SGOT/AST 27 U/L (14-36); SGPT/ALT 9 U/L (0-35); SODIUM 132 mmol/L (137-145)
[2020-09-14 10:26] VITALS: O2SAT 98
[2020-09-14] MEDS ORDERED: Calcium Gluconate 10% 1000 MG IV ONE ×2 (10:34→10:45)
[2020-09-14] MEDS ORDERED: Magnesium 1 Gm / 100 Ml D5W*** 100 ML IV ONE (10:45)
[2020-09-14] MEDS ORDERED: Magnesium 1 Gm / 100 Ml D5W*** 100 ML IV SCH (10:45)
[2020-09-14 11:27] VITALS: BP 120/78; PULSE 86
== END 2020-09-14 11:25 | disposition short-term general hospital (02) ==
LOC: ED 08:09
DX: E87.1 Hypo-osmolality and hyponatremia (principal); D53.1 Other megaloblastic anemias, not elsewhere classified; E83.51 Hypocalcemia; E87.2 Acidosis; R29.0 Tetany; D47.3 Essential (hemorrhagic) thrombocythemia; F17.210 Nicotine dependence, cigarettes, uncomplicated
CPT/HCPCS: 36000; 36415; 80053; 83735; 85025; 96374; 96375; 99285; J0610; J2270; J3475

== ENCOUNTER 2020-09-16 19:24 | Emergency (ER) | payer OTHER ==
[2020-09-16 19:39] VITALS: BP 124/68; PULSE 103; O2SAT 98
--- NOTE | 2020-09-16 20:43 | ERPHSYRPT ---
- History of Present Illness Time Seen by Provider: 09/16/20 19:45 Source: patient Exam Limitations: no limitations Patient Subjective Stated Complaint: Patient states " I have been getting weaker and weaker since I was discharged from [facility] on Monday09/09/20 and I continue to not feel well and I feel like my calves could give out at any time". Triage Nursing Assessment: Patient arrived to ED and Medic went outside to help get patient out of car and patient was assisted by one into ED department and 1 assist to put patient into bed. Patient denies SOB. Patient denies chest pain. Lungs clear bilateral A/P throughout. Patient A/O times 4. Patient able to follow directions without difficulty. Patient denies N/V. Patient denies any loose stools. Patient denies dizziness or H/A. Patient pupils brisk and reactive to light. 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 Neuro WNL. Patient ROM WNL. Patient able to move all extremities without difficulty. Central color pale. + radial and pedal pulses noted. Non-pitting edema noted to bilateral lower extremities noted. Apical pulse regular and strong. + BS times 4 quads. ABD soft, round, non-distended. Patient denies any pain or discomfort upon palpitation. Patient denies any pain or burning upon urination. Physician History: Patient is a 40-year-old female presents to our ED with complaints of weakness. Patient arrived via private vehicle. Patient was having difficulty exiting her vehicle. Her medic went out to assist patient into a wheelchair and bring her to our ED. Patient states that she has been experiencing progressive weakness over the past week. Patient was recently discharged from [facility] for the same. Patient followed up with her primary care doctor today. Patient states that they ordered a thyroid study. Patient denies pain. No nausea or vomiting. No diaphoresis. No rash. No diarrhea. Timing/Duration: week(s) (1 week) Severity: moderate Modifying Factors: Improves With: nothing Associated Symptoms: denies symptoms, No nausea, No vomiting, No abdominal pain, No shortness of breath, No heartburn, No diaphoresis, No cough, No chills, No chest pain, No fever, No headaches, No loss of appetite Allergies/Adverse Reactions: No Known Drug Allergies Allergy (Verified 09/16/20 19:40) Home Medications: No Reportable Medications [No Reported Medications] 09/08/20 [History] Hx Tetanus, Diphtheria Vaccination/Date Given: Yes Hx Influenza Vaccination/Date Given: Yes Hx Pneumococcal Vaccination/Date Given: No Immunizations Up to Date: Yes Travel Risk - International Travel Have you traveled outside of the country in past 3 weeks: No - Coronavirus Screening Are you exhibiting any of the following symptoms?: No Close contact with a COVID-19 positive Pt in past 14-21 Days: No - Review of Systems Constitutional: No Symptoms, No Fever, No Chills Eyes: No Symptoms Ears, Nose, & Throat: No Symptoms Respiratory: No Symptoms, No Cough, No Dyspnea Cardiac: No Symptoms, No Chest Pain, No Edema, No Syncope Abdominal/Gastrointestinal: No Symptoms, No Abdominal Pain, No Nausea, No Vomiting, No Diarrhea Genitourinary Symptoms: No Symptoms, No Dysuria Musculoskeletal: No Symptoms, No Back Pain, No Neck Pain Skin: No Symptoms, No Rash Neurological: No Symptoms, No Dizziness, No Focal Weakness, No Sensory Changes Psychological: No Symptoms Endocrine: No Symptoms Hematologic/Lymphatic: No Symptoms Immunological/Allergic: No Symptoms All Other Systems: Reviewed and Negative - Past Medical History Pertinent Past Medical History: Yes Neurological History: No Pertinent History ENT History: No Pertinent History Cardiac History: No Pertinent History Respiratory History: No Pertinent History Endocrine Medical History: No Pertinent History Musculoskeletal History: Fibromyalgia GI Medical History: No Pertinent History History: No Pertinent History Psycho-Social History: Anxiety Female Reproductive Disorders: No Pertinent History Other Medical History: tail bone fracture, toe fracture - Past Surgical History Past Surgical History: Yes Neuro Surgical History: No Pertinent History Cardiac: No Pertinent History Respiratory: No Pertinent History Gastrointestinal: Appendectomy Genitourinary: No Pertinent History Musculoskeletal: No Pertinent History Female Surgical History: Tubal Ligation Other Surgical History: rhinoplasty - Social History Smoking Status: Current every day smoker How long have you smoked: 16 Exposure to second hand smoke: Yes Drug Use: none Patient Lives Alone: No - Female History Hx Last Menstrual Period: Tubal Hx Now: No - Nursing Vital Signs Nursing Vital Signs: Initial Vital Signs Temperature 98.0 F 09/16/20 19:37 Pulse Rate 103 H 09/16/20 19:37 Respiratory Rate 22 09/16/20 19:37 Blood Pressure 124/68 09/16/20 19:37 O2 Sat by Pulse Oximetry 98 09/16/20 19:37 Pain Scale Pain Intensity 8 - Physical Exam General Appearance: no apparent distress, alert, other (Patient conversant. No acute distress.) Eye Exam: PERRL/EOMI, eyes nml inspection Ears, Nose, Throat Exam: normal ENT inspection, TMs normal, pharynx normal, moist mucous membranes Neck Exam: normal inspection, non-tender, supple, full range of motion Respiratory Exam: normal breath sounds, lungs clear, airway intact, No chest tenderness, No respiratory distress Cardiovascular Exam: regular rate/rhythm, normal heart sounds, normal peripheral pulses Gastrointestinal/Abdomen Exam: soft, normal bowel sounds, No tenderness, No mass Back Exam: normal inspection, normal range of motion, No CVA tenderness, No vertebral tenderness Extremity Exam: normal inspection, normal range of motion, pelvis stable, pedal edema, other (1+ pitting edema bilateral lower extremity.), No gao, No contusions, No calf tenderness, No scot's sign, No joint swelling, No limited range of motion Neurologic Exam: alert, oriented x 3, cooperative, normal mood/affect, sensation nml, other (Patient does not want to attempt ambulation as she states she is a fall risk. On exam patient moving all extremities against gravity however drive tester strength appears to be weak. ), No motor deficits, No uncooperative, No slurred speech, No aphasia Skin Exam: normal color, warm, dry, No rash Lymphatic Exam: No adenopathy SpO2 Interpretation: normal SpO2: 98 O2 Delivery: Room Air - Course Nursing assessment & vital signs reviewed: Yes Ordered Tests: Active Orders 24 hr Category Date Time Status AMA [Release AMA] OM.NOW Care 09/16/20 20:22 Active Machine Tracer STAT Care 09/16/20 19:48 Active EKG-ER Only STAT Care 09/16/20 19:48 Active IV Insertion STAT Care 09/16/20 19:48 Active Pulse Oximetry (ED) STAT Care 09/16/20 19:48 Active CBC W DIFF Stat Lab 09/16/20 19:48 Ordered CMP Stat Lab 09/16/20 19:48 Ordered MAGNESIUM Stat Lab 09/16/20 19:48 Ordered TROPONIN Q3H Lab 09/16/20 20:00 Ordered TROPONIN Q3H Lab 09/16/20 23:00 Ordered TROPONIN Q3H Lab 09/17/20 02:00 Ordered TROPONIN Q3H Lab 09/17/20 05:00 Ordered TROPONIN Q3H Lab 09/17/20 08:00 Ordered UA W/RFX UR CULTURE Stat Lab 09/16/20 19:48 Ordered - Progress Progress: unchanged, improved Progress Note: 09/16/20 20:49 Patient refused work-up. Patient states that she is only in our ED because her mother and son made her come. Patient states that she was at [facility] and was worked up extensively. Patient states she is tired of being poked with needles. She does not want her blood drawn. Patient requesting discharge. She voices that she already followed up with Dr. Rdz today and he is managing her case. Patient reports refusing all work-up and requesting release. Patient is of sound mind. Patient is appropriate to make informed and independent medical decisions. Patient understands that leaving AGAINST MEDICAL ADVICE can result in delayed diagnosis, increased risk of morbidity, mortality, short and long-term disability including . In spite of these risks, patient has decided to leave AGAINST MEDICAL ADVICE. Patient understands that she may return to our ED at any point if he or she reconsiders. Patient agrees to follow-up with her primary care doctor within 48 hours for reevaluation. Patient voices no other complaints or concerns at this time. We will release patient AGAINST MEDICAL ADVICE per their request. - Departure Departure Disposition: AMA Clinical Impression: Generalized weakness Condition: Stable Critical Care Time: No Referrals: MISSAEL RDZ MD [Primary Care Provider] -
== END 2020-09-16 20:30 | disposition left against medical advice (07) ==
LOC: ED 19:24
DX: R53.1 Weakness (principal); F17.210 Nicotine dependence, cigarettes, uncomplicated
CPT/HCPCS: 93041; 94760; 99284

== ENCOUNTER 2020-09-24 13:18 | Emergency (ER) | payer OTHER ==
[2020-09-24] MEDS ORDERED: MORPHINE SULFATE 4 MG INJ IV ONE ×2 (13:27→14:48)
[2020-09-24] MEDS ORDERED: Sodium Chloride 0.9% 1000 ML 1,000 ML IV STA (13:27)
[2020-09-24] MEDS ORDERED: Zofran 4 MG/2 ML VIAL IV ONE (13:27)
[2020-09-24 13:34] LABS: Absolute Neutrophil Ct (ANC) 3.25 (1.4-6.9); BASOPHIL % 0.6 % (0.0-0.4); Basophil (Absolute #) 0.04 (0-0.4); Eosinophil % 1.8 % (0.00-5.0); Eosinophil (Absolute #) 0.13 (0-0.5); Hematocrit 28.7 % (35-47); Hemoglobin 9.4 gm/dl (12.0-16.0); Lymphocyte (Absolute #) 3.04 (1.0-4.6); Lymphocytes % 42.8 % (24.0-44.0); Mean Cell Volume 106.7 fl (78-100); Mean Corpuscular Hemoglobin 34.9 pg (26-32); Mean Corpuscular Hgb Concent. 32.8 g/dl (32-36); Mean Platelet Volume 10.1 fl (7.5-11.0); Monocyte (Absolute #) 0.65 (0.0-1.3); Monocytes % 9.1 % (0.0-12.0); Neutrophil % 45.7 % (36.0-66.0); Platelet Count 461 K/mm3 (150-450); Red Blood Count 2.69 M/mm3 (4.1-5.4); White Blood Count 7.1 K/mm3 (4.0-10.5)
[2020-09-24 13:39] VITALS: O2SAT 99
[2020-09-24] MEDS ORDERED: Zofran 4 MG/2 ML VIAL ONE (13:39)
[2020-09-24] MEDS ORDERED: MORPHINE SULFATE 4 MG INJ ONE ×2 (13:40→14:51)
[2020-09-24] MEDS ORDERED: Sodium Chloride 0.9% 1000 ML 1,000 ML ONE (13:40)
--- NOTE | 2020-09-24 13:45 | XRAY ---
Indication: Short of breath. Comparison: September 08, 2020. Portable chest demonstrates stable minimal left base fibrosis/scarring. Remaining heart and lungs normal.. Bony thorax intact. No new/acute findings.
[2020-09-24 13:56] LABS: ALKALINE PHOSPHATASE 62 U/L (38-126); ANION GAP 11.6 MEQ/L (5-15); BLOOD UREA NITROGEN 9 mg/dL (7-17); CHLORIDE 100 mmol/L (98-107); CK-Creatinine Phosphokinase 56 U/L (30-135); Calcium 9.6 mg/dL (8.4-10.2); Carbon Dioxide 26 mmol/L (22-30); Creatinine 1 0.64 mg/dL (0.52-1.04); EST GLOMERULAR FILTRATION RATE > 60.0 ML/MIN; Glucose 90 mg/dL (74-106); MAGNESIUM 1.5 mg/dL (1.6-2.3); NT PRO BNP 684 pg/mL (0-450); Potassium 3.2 mmol/L (3.5-5.1); SGOT/AST 39 U/L (14-36); SGPT/ALT 18 U/L (0-35); SODIUM 134 mmol/L (137-145); Total Protein 5.6 g/dL (6.3-8.2)
[2020-09-24] MEDS ORDERED: Klor Con 10 MEQ PO ONE ×2 (14:41→14:51)
[2020-09-24] MEDS ORDERED: Magnesium Sulfate 1 GM/2 ML VIAL IV ONE (14:42)
[2020-09-24] MEDS ORDERED: Magnesium 1 Gm / 100 Ml D5W*** 200 ML IV ONE (14:51)
--- NOTE | 2020-09-24 14:53 | ERPHSYRPT ---
- History of Present Illness Time Seen by Provider: 09/24/20 13:33 Source: patient Exam Limitations: no limitations Patient Subjective Stated Complaint: Joshua hand and leg pain Triage Nursing Assessment: Patient brought into ED via EMS and transferred to bed with assist of 3. Patient A+O X3. Patient's skin pink, warm and dry. Patient complains of joshua hand and leg pain constant sharp, cramping pain 10/10. Patient states she has been having this issue for one month. Patient denies injury. No visible injuries noted to joshua hands and feet. Pulses noted. Physician History: 40 years old female presented in the ER with chief complaint of bilateral hand and lower extremity cramping which is off and on for almost 1 month, was evaluated in the past with some electrolyte abnormality. Reports partial relief with pain medications. Denies any chest pain palpitations or shortness of breath. No abdominal pain nausea or vomiting. She is complaining of generalized weakness and fatigue because of this. No fever or chills reported. Timing/Duration: week(s), intermittent, gradual onset, worse Severity: moderate, severe Modifying Factors: Improves With: medication. Worsens With: movement Associated Symptoms: denies symptoms Allergies/Adverse Reactions: No Known Drug Allergies Allergy (Verified 09/24/20 13:20) Home Medications: Oxycodone HCl/Acetaminophen [Percocet 5-325 mg Tablet] 1 tab PO Q4H PRN PRN 09/24/20 [History] Hx Tetanus, Diphtheria Vaccination/Date Given: Yes Hx Influenza Vaccination/Date Given: Yes Hx Pneumococcal Vaccination/Date Given: No Immunizations Up to Date: Yes Travel Risk - International Travel Have you traveled outside of the country in past 3 weeks: No - Coronavirus Screening Are you exhibiting any of the following symptoms?: No Close contact with a COVID-19 positive Pt in past 14-21 Days: No - Review of Systems Constitutional: Fatigue, Weakness Eyes: No Symptoms Ears, Nose, & Throat: No Symptoms Respiratory: No Symptoms Cardiac: No Symptoms Abdominal/Gastrointestinal: No Symptoms Genitourinary Symptoms: No Symptoms Musculoskeletal: Myalgias Skin: No Symptoms Neurological: No Symptoms Psychological: Anxiety Endocrine: No Symptoms Hematologic/Lymphatic: No Symptoms Immunological/Allergic: No Symptoms - Past Medical History Pertinent Past Medical History: Yes Neurological History: No Pertinent History ENT History: No Pertinent History Cardiac History: No Pertinent History Respiratory History: No Pertinent History Endocrine Medical History: No Pertinent History Musculoskeletal History: Fibromyalgia GI Medical History: No Pertinent History History: No Pertinent History Psycho-Social History: Anxiety Female Reproductive Disorders: No Pertinent History Other Medical History: tail bone fracture, toe fracture - Past Surgical History Past Surgical History: Yes Neuro Surgical History: No Pertinent History Cardiac: No Pertinent History Respiratory: No Pertinent History Gastrointestinal: Appendectomy Genitourinary: No Pertinent History Musculoskeletal: No Pertinent History Female Surgical History: Tubal Ligation Other Surgical History: rhinoplasty - Social History Smoking Status: Current every day smoker How long have you smoked: 16 Exposure to second hand smoke: Yes Drug Use: none Patient Lives Alone: No - Female History Hx Last Menstrual Period: July 2020 Hx Now: No - Nursing Vital Signs Nursing Vital Signs: Initial Vital Signs Temperature 98.0 F 09/24/20 13:29 Pulse Rate 97 H 09/24/20 13:29 Respiratory Rate 20 09/24/20 13:29 Blood Pressure 124/99 09/24/20 13:29 O2 Sat by Pulse Oximetry 99 09/24/20 13:29 Pain Scale Pain Intensity 4 - Physical Exam General Appearance: no apparent distress, alert, anxiety Eye Exam: PERRL/EOMI, eyes nml inspection Ears, Nose, Throat Exam: normal ENT inspection, TMs normal, pharynx normal Neck Exam: normal inspection, non-tender, supple, full range of motion Respiratory Exam: normal breath sounds, lungs clear, No chest tenderness Cardiovascular Exam: regular rate/rhythm, normal heart sounds Gastrointestinal/Abdomen Exam: soft, normal bowel sounds, No tenderness Back Exam: normal inspection, normal range of motion, No CVA tenderness Extremity Exam: normal range of motion, other (Flex fingers of both hands that metacarpophalangeal joint.), No parasthesia, No scot's sign, No inflammation, No joint swelling, No swelling Neurologic Exam: alert, oriented x 3, cooperative, pipe layer helper II-XII nml as tested, nml cerebellar function, sensation nml, No motor deficits, No sensory deficit Skin Exam: normal color SpO2 Interpretation: normal SpO2: 99 O2 Delivery: Room Air - Course EKG Interpreted by Me: RATE (99), Sinus Rhythm, NORMAL AXIS, NORMAL INTERVALS, NORMAL QRS Ordered Tests: Active Orders 24 hr Category Date Time Status CHEST 1 VIEW (PORTABLE) Stat Exams 09/24/20 13:23 Completed CBC W DIFF Stat Lab 09/24/20 13:23 Completed CK-Creatinine Phosphokinase Stat Lab 09/24/20 13:23 Completed CMP Stat Lab 09/24/20 13:23 Completed MAGNESIUM Stat Lab 09/24/20 13:23 Completed NT PRO BNP Stat Lab 09/24/20 13:23 Completed TROPONIN Q3H Lab 09/24/20 13:30 Completed Medication Summary Discontinued Medications Generic Name Dose Route Start Last Admin Trade Name Lucila PRN Reason Stop Dose Admin Sodium Chloride 1,000 mls @ 999 mls/hr 09/24/20 13:27 09/24/20 15:31 Sodium Chloride 0.9% 1000 Ml IV 09/24/20 14:27 Infused .Q1H1M STA Infusion Sodium Chloride Confirm 09/24/20 13:40 Sodium Chloride 0.9% 1000 Ml Administered 09/24/20 13:41 Dose 1,000 mls @ ud .ROUTE .STK-MED ONE Magnesium Sulfate/Dextrose 100 mls @ 100 mls/hr 09/24/20 15:00 09/24/20 14:53 Magnesium 1 Gm / 100 Ml D5w IV 09/24/20 16:59 100 mls/hr Q1H JULIANNA Administration Magnesium Sulfate/Dextrose Confirm 09/24/20 14:51 Magnesium 1 Gm / 100 Ml D5w Administered 09/24/20 14:52 Dose 200 mls @ ud IV .STK-MED ONE Magnesium Sulfate 2 gm 09/24/20 14:42 09/24/20 14:50 Magnesium Sulfate 1 Gm/2 Ml Vial IV 09/24/20 14:43 Not Given STAT ONE Morphine Sulfate 4 mg 09/24/20 13:27 09/24/20 13:41 Morphine Sulfate 4 Mg Inj IV 09/24/20 13:28 4 mg STAT ONE Administration Morphine Sulfate Confirm 09/24/20 13:40 Morphine Sulfate 4 Mg Inj Administered 09/24/20 13:41 Dose 4 mg .ROUTE .STK-MED ONE Morphine Sulfate 4 mg 09/24/20 14:48 09/24/20 14:53 Morphine Sulfate 4 Mg Inj IV 09/24/20 14:49 4 mg STAT ONE Administration Morphine Sulfate Confirm 09/24/20 14:51 Morphine Sulfate 4 Mg Inj Administered 09/24/20 14:52 Dose 4 mg .ROUTE .STK-MED ONE Ondansetron HCl 4 mg 09/24/20 13:27 09/24/20 13:40 Zofran 4 Mg/2 Ml Vial IV 09/24/20 13:28 4 mg STAT ONE Administration Ondansetron HCl Confirm 09/24/20 13:39 Zofran 4 Mg/2 Ml Vial Administered 09/24/20 13:40 Dose 4 mg .ROUTE .STK-MED ONE Orphenadrine Citrate 60 mg 09/24/20 15:51 09/24/20 15:55 Norflex 60 Mg/2 Ml IV 09/24/20 15:52 60 mg STAT ONE Administration Orphenadrine Citrate Confirm 09/24/20 15:55 Norflex 60 Mg/2 Ml Administered 09/24/20 15:56 Dose 60 mg .ROUTE .STK-MED ONE Potassium Chloride 40 meq 09/24/20 14:41 09/24/20 14:54 Klor Con 10 Meq PO 09/24/20 14:42 40 meq STAT ONE Administration Potassium Chloride Confirm 09/24/20 14:51 Klor Con 10 Meq Administered 09/24/20 14:52 Dose 40 meq PO .STK-MED ONE Lab/Rad Data: Laboratory Result Diagrams 09/24/20 13:23 09/24/20 13:23 Laboratory Results 09/24/20 09/24/20 09/24/20 Range/Units 13:30 13:23 13:23 WBC 7.1 (4.0-10.5) K/mm3 RBC 2.69 L (4.1-5.4) M/mm3 Hgb 9.4 L (12.0-16.0) gm/dl Hct 28.7 L (35-47) % MCV 106.7 H (78-100) fl MCH 34.9 H (26-32) pg MCHC 32.8 (32-36) g/dl RDW 14.0 (11.5-14.0) % Plt Count 461 H (150-450) K/mm3 MPV 10.1 (7.5-11.0) fl Gran % 45.7 (36.0-66.0) % Eos # (Auto) 0.13 (0-0.5) Absolute Lymphs (auto) 3.04 (1.0-4.6) Absolute Monos (auto) 0.65 (0.0-1.3) Lymphocytes % 42.8 (24.0-44.0) % Monocytes % 9.1 (0.0-12.0) % Eosinophils % 1.8 (0.00-5.0) % Basophils % 0.6 (0.0-0.4) % Absolute Granulocytes 3.25 (1.4-6.9) Basophils # 0.04 (0-0.4) Sodium 134 L (137-145) mmol/L Potassium 3.2 L (3.5-5.1) mmol/L Chloride 100 (98-107) mmol/L Carbon Dioxide 26 (22-30) mmol/L Anion Gap 11.6 (5-15) MEQ/L BUN 9 (7-17) mg/dL Creatinine 0.64 (0.52-1.04) mg/dL Estimated GFR > 60.0 ML/MIN Glucose 90 (74-106) mg/dL Calcium 9.6 (8.4-10.2) mg/dL Magnesium 1.5 L (1.6-2.3) mg/dL Total Bilirubin 0.20 (0.2-1.3) mg/dL AST 39 H (14-36) U/L ALT 18 (0-35) U/L Alkaline Phosphatase 62 (38-126) U/L Creatine Kinase 56 (30-135) U/L Troponin I < 0.012 (0.000-0.034) ng/mL NT-Pro-B Natriuret Pep 684 H (0-450) pg/mL Serum Total Protein 5.6 L (6.3-8.2) g/dL Albumin 3.0 L (3.5-5.0) g/dL - Progress Progress: improved, pain not gone completely, re-examined Progress Note: 09/24/20 16:17 40 years old is evaluated for bilateral lower extremity cramping and carpopedal spasm in the hands. Given fluid and symptomatic relief for pain along with muscle relaxant, on reevaluation feeling better. She has mildly low potassium and magnesium for which she is given replacement. She does take magnesium supplements at home which she is advised to continue. Work-up otherwise is grossly unremarkable for any acute changes. I would give her muscle relaxants as well to go home. Do not think patient needs any further work-up and is stable for discharge with outpatient follow-up. Counseled pt/family regarding: lab results, diagnosis, need for follow-up, rad results, smoking cessation - Departure Departure Disposition: Home Clinical Impression: Hypokalemia, Hypomagnesemia, Carpopedal spasm, Generalized weakness Condition: Stable Critical Care Time: No Referrals: MISSAEL RDZ MD [Primary Care Provider] - (1-2 days for reevaluation) Instructions: Chronic Pain (DC), Hypokalemia (DC), Low Magnesium Level (DC) Additional Instructions: Continue with magnesium supplements at home. Take pain medications as needed. Follow-up with primary care physician for reevaluation. Take foods containing high potassium. Return to ER for worsening pain or spasms. Prescriptions: Cyclobenzaprine HCl 10 mg [Flexeril 10 MG] 10 mg PO TID #12 tablet
[2020-09-24] MEDS ORDERED: Magnesium 1 Gm / 100 Ml D5W*** 100 ML IV SCH (15:00)
[2020-09-24 15:19] VITALS: BP 130/84; PULSE 86
[2020-09-24] MEDS ORDERED: Norflex 60 MG/2 ML IV ONE (15:51)
[2020-09-24] MEDS ORDERED: Norflex 60 MG/2 ML ONE (15:55)
== END 2020-09-24 16:56 | disposition home or self-care (01) ==
LOC: ED 13:18
DX: E87.6 Hypokalemia (principal); E83.42 Hypomagnesemia; R29.0 Tetany; R53.1 Weakness; M79.642 Pain in left hand; M79.641 Pain in right hand; M79.605 Pain in left leg; M79.604 Pain in right leg; Z79.891 Long term (current) use of opiate analgesic; M79.7 Fibromyalgia; F41.9 Anxiety disorder, unspecified
CPT/HCPCS: 36415; 71045; 80053; 82550; 83735; 83880; 83970; 84484; 85025; 93005; 96360; 96374; 96375; 96376; 99285; J2270; J2360; J2405; J3475; A9270-GY

== ENCOUNTER 2020-10-16 22:53 | Emergency (ER) | payer OTHER ==
[2020-10-16 23:44] VITALS: O2SAT 98
[2020-10-17] MEDS ORDERED: BABY ASPIRIN 81 MG CHEW PO ONE (00:01)
[2020-10-17] MEDS ORDERED: TYLENOL 325 MG PO ONE (00:01)
[2020-10-17] MEDS ORDERED: Sodium Chloride 0.9% 1000 ML 1,000 ML IV STA (00:01)
[2020-10-17] MEDS ORDERED: Magnesium 1 Gm / 100 Ml D5W*** 100 ML IV SCH (00:15)
--- NOTE | 2020-10-17 00:19 | ERPHSYRPT ---
- History of Present Illness Time Seen by Provider: 10/16/20 22:56 Source: patient Exam Limitations: no limitations Patient Subjective Stated Complaint: "I'm cramping again." Triage Nursing Assessment: Patient reported having bilateral hand and foot cramping. Denied recent injuries. Reported past history of elctrolyte abnormalities. Reported pain worsening over the past two days. Pupils 3mm. Symmetrical chest expansion. Lungs vesicular. Heart tones S1/S2. Noted carpopedal spasms to the bilateral hands. No noted dependent edema. Physician History: Patient is here with chronic pain. Patient states that she has chronic wrist pain. Has the carpal spasms. States this is from low magnesium or potassium. She states that she is following up with neurology this month. Patient also saw her PCP this last week. Having increasing lower extremity swelling without other obvious cause. Patient states that she has been taking her home pain medication. She has no falls or trauma. No new or different pain tonight o utside of her typical chronic pain. Timing/Duration: today Severity: moderate Modifying Factors: Improves With: medication, movement Associated Symptoms: denies symptoms Allergies/Adverse Reactions: No Known Drug Allergies Allergy (Verified 10/16/20 23:34) Home Medications: Magnesium Oxide 400 mg [Mag-Ox 400] 2 tab PO DAILY 10/16/20 [History] Potassium Chloride [Klor-Con M10] 1 tab PO BID 10/16/20 [History] Pregabalin 1 cap PO BID 10/16/20 [History] Hx Tetanus, Diphtheria Vaccination/Date Given: Yes Hx Influenza Vaccination/Date Given: Yes Hx Pneumococcal Vaccination/Date Given: No Travel Risk - International Travel Have you traveled outside of the country in past 3 weeks: No - Coronavirus Screening Are you exhibiting any of the following symptoms?: No Close contact with a COVID-19 positive Pt in past 14-21 Days: No - Vaccine Status Have you recieved a Covid-19 vaccination: No - Review of Systems Constitutional: No Fever, No Chills Eyes: No Symptoms Ears, Nose, & Throat: No Symptoms Respiratory: No Cough, No Dyspnea Cardiac: No Chest Pain, No Edema, No Syncope Abdominal/Gastrointestinal: No Abdominal Pain, No Nausea, No Vomiting, No Diarrhea Genitourinary Symptoms: No Dysuria Musculoskeletal: Other (Patient has bilateral wrist pain.), No Back Pain, No Neck Pain Skin: No Rash Neurological: No Dizziness, No Focal Weakness, No Sensory Changes Psychological: No Symptoms Endocrine: No Symptoms All Other Systems: Reviewed and Negative - Past Medical History Pertinent Past Medical History: Yes Neurological History: No Pertinent History ENT History: No Pertinent History Cardiac History: No Pertinent History Respiratory History: No Pertinent History Endocrine Medical History: No Pertinent History Musculoskeletal History: Fibromyalgia GI Medical History: No Pertinent History History: No Pertinent History Psycho-Social History: Anxiety Female Reproductive Disorders: No Pertinent History Other Medical History: tail bone fracture, toe fracture - Past Surgical History Past Surgical History: Yes Neuro Surgical History: No Pertinent History Cardiac: No Pertinent History Respiratory: No Pertinent History Gastrointestinal: Appendectomy Genitourinary: No Pertinent History Musculoskeletal: No Pertinent History Female Surgical History: Tubal Ligation Other Surgical History: rhinoplasty - Social History Smoking Status: Current every day smoker How long have you smoked: 16 Exposure to second hand smoke: Yes Drug Use: none Patient Lives Alone: No - Female History Hx Now: No - Nursing Vital Signs Nursing Vital Signs: Initial Vital Signs Pulse Rate 98 H 10/16/20 22:53 Respiratory Rate 18 10/16/20 22:53 Blood Pressure 118/88 10/16/20 22:53 O2 Sat by Pulse Oximetry 98 10/16/20 22:53 Pain Scale Pain Intensity 3 - Physical Exam General Appearance: no apparent distress, alert Eye Exam: PERRL/EOMI, eyes nml inspection Ears, Nose, Throat Exam: normal ENT inspection, TMs normal, pharynx normal, moist mucous membranes Neck Exam: normal inspection, non-tender, supple, full range of motion Respiratory Exam: normal breath sounds, lungs clear, No respiratory distress Cardiovascular Exam: regular rate/rhythm, normal heart sounds, normal peripheral pulses Gastrointestinal/Abdomen Exam: soft, normal bowel sounds, No tenderness, No mass Back Exam: normal inspection, normal range of motion, No CVA tenderness, No vertebral tenderness Extremity Exam: normal inspection, normal range of motion, pelvis stable Neurologic Exam: alert, oriented x 3, cooperative, normal mood/affect, nml cerebellar function, nml station & gait, sensation nml, No motor deficits Skin Exam: normal color, warm, dry, No rash Lymphatic Exam: No adenopathy SpO2 Interpretation: normal SpO2: 98 Comments: 10/17/20 00:16 Bilateral wrists are being held in flexion. No obvious deformity, sensation intact, 2+ capillary refill, 2 point tactile discrimination intact. 5 out of 5 strength. Full range of motion without pain. Compartments are soft, nontender. Overlying skin shows no tenting, bruising, ecchymosis. No appreciable lower extremity swelling to my exam. Motor: There is no pronator drift of out-stretched arms. Muscle bulk and tone are normal. Strength is full bilaterally. Reflexes: Reflexes are 2+ and symmetric at the biceps, triceps, knees, and ankles. Plantar responses are flexor. Sensory: Light touch sense are intact in bilateral upper and lower extremities. There is no sign of neglect. Coordination: Rapid alternating movements are intact. There is no dysmetria on [id number] and [id number]. There are no abnormal or extraneous movements. Romberg is absent. Gait/Stance: Posture is normal. Gait is steady with normal steps, base, arm swing, and turning. Heel and toe walking are normal. Tandem gait is normal. - Course Nursing assessment & vital signs reviewed: Yes EKG Interpreted by Me: Sinus Rhythm Rhythm Strip: Normal Sinus Rhythm Ordered Tests: Active Orders 24 hr Category Date Time Status EKG-ER Only STAT Care 10/17/20 00:01 Completed IV Insertion STAT Care 10/17/20 00:01 Completed CBC W DIFF Stat Lab 10/17/20 00:21 Completed CMP Stat Lab 10/17/20 00:21 Completed LIPASE Stat Lab 10/17/20 00:21 Completed MAGNESIUM Stat Lab 10/17/20 00:21 Completed UA W/RFX UR CULTURE Stat Lab 10/17/20 00:01 Completed Medication Summary Discontinued Medications Generic Name Dose Route Start Last Admin Trade Name Lucila PRN Reason Stop Dose Admin Acetaminophen 975 mg 10/17/20 00:01 10/17/20 00:32 Tylenol 325 Mg PO 10/17/20 00:02 975 mg STAT ONE Administration Acetaminophen Confirm 10/17/20 00:28 Tylenol 325 Mg Administered 10/17/20 00:29 Dose 975 mg .ROUTE .STK-MED ONE Aspirin 324 mg 10/17/20 00:01 10/17/20 00:35 Baby Aspirin 81 Mg Chew PO 10/17/20 00:02 324 mg STAT ONE Administration Aspirin Confirm 10/17/20 00:28 Baby Aspirin 81 Mg Chew Administered 10/17/20 00:29 Dose 324 mg .ROUTE .STK-MED ONE Sodium Chloride 1,000 mls @ 999 mls/hr 10/17/20 00:01 10/17/20 02:02 Sodium Chloride 0.9% 1000 Ml IV 10/17/20 01:01 Infused .Q1H1M STA Infusion Magnesium Sulfate/Dextrose 100 mls @ 100 mls/hr 10/17/20 00:15 10/17/20 00:36 Magnesium 1 Gm / 100 Ml D5w IV 10/17/20 02:14 100 mls/hr Q1H JULIANNA Administration Sodium Chloride Confirm 10/17/20 00:28 Sodium Chloride 0.9% 1000 Ml Administered 10/17/20 00:29 Dose 1,000 mls @ ud .ROUTE .STK-MED ONE Magnesium Sulfate/Dextrose Confirm 10/17/20 00:28 Magnesium 1 Gm / 100 Ml D5w Administered 10/17/20 00:29 Dose 100 mls @ ud IV .STK-MED ONE Lab/Rad Data: Laboratory Result Diagrams 10/17/20 00:21 10/17/20 00:21 Laboratory Results 10/17/20 10/17/20 10/17/20 Range/Units 00:21 00:21 00:01 WBC 6.3 (4.0-10.5) K/mm3 RBC 2.94 L (4.1-5.4) M/mm3 Hgb 10.5 L (12.0-16.0) gm/dl Hct 30.8 L (35-47) % MCV 104.8 H (78-100) fl MCH 35.7 H (26-32) pg MCHC 34.1 (32-36) g/dl RDW 12.4 (11.5-14.0) % Plt Count 376 (150-450) K/mm3 MPV 10.2 (7.5-11.0) fl Gran % 49.7 (36.0-66.0) % Eos # (Auto) 0.10 (0-0.5) Absolute Lymphs (auto) 2.50 (1.0-4.6) Absolute Monos (auto) 0.55 (0.0-1.3) Lymphocytes % 39.4 (24.0-44.0) % Monocytes % 8.7 (0.0-12.0) % Eosinophils % 1.6 (0.00-5.0) % Basophils % 0.6 (0.0-0.4) % Absolute Granulocytes 3.15 (1.4-6.9) Basophils # 0.04 (0-0.4) Sodium 127 L D (137-145) mmol/L Potassium 3.1 L (3.5-5.1) mmol/L Chloride 94 L (98-107) mmol/L Carbon Dioxide 24 (22-30) mmol/L Anion Gap 12.0 (5-15) MEQ/L BUN < 2 L (7-17) mg/dL Creatinine 0.44 L (0.52-1.04) mg/dL Estimated GFR > 60.0 ML/MIN Glucose 90 (74-106) mg/dL Calcium 8.1 L (8.4-10.2) mg/dL Magnesium 1.7 (1.6-2.3) mg/dL Total Bilirubin 0.30 (0.2-1.3) mg/dL AST 68 H (14-36) U/L ALT 26 (0-35) U/L Alkaline Phosphatase 74 (38-126) U/L Serum Total Protein 5.6 L (6.3-8.2) g/dL Albumin 3.0 L (3.5-5.0) g/dL Lipase 30 (23-300) U/L Urine Color COLORLESS (YELLOW) Urine Appearance CLEAR (CLEAR) Urine pH 8.0 (5-6) Ur Specific [place] 1.003 (1.005-1.025) Urine Protein NEGATIVE (Negative) Urine Ketones NEGATIVE (NEGATIVE) Urine Blood NEGATIVE (0-5) Cristofer/ul Urine Nitrite NEGATIVE (NEGATIVE) Urine Bilirubin NEGATIVE (NEGATIVE) Urine Urobilinogen NEGATIVE (0-1) mg/dL Ur Leukocyte Esterase NEGATIVE (NEGATIVE) Urine WBC (Auto) NONE (0-5) /HPF Urine RBC (Auto) NONE (0-2) /HPF U Epithel Cells (Auto) RARE (FEW) /HPF Urine Bacteria (Auto) NONE (NEGATIVE) /HPF Urine Mucus (Auto) SLIGHT (NEGATIVE) /HPF Urine Culture Reflexed NO (NO) Urine Glucose NEGATIVE (NEGATIVE) mg/dL - Progress Progress: improved Progress Note: 10/17/20 00:18 We will obtain basic labs, fluids, give magnesium prophylactically here. No need for imaging tonight as you have been imaged before. Most likely acute on chronic pain. We will also give oral Tylenol here. Recommend close follow-up with neurology and PCP. We will await lab return. 10/17/20 04:47 Patient feeling improved after magnesium and fluids. Overall, she has a normal magnesium, normal potassium. Patient did have a large swing her sodium. Is 127 tonight. Appears that she has had large swings before. She did receive a fluid bolus. No signs of seizures, EKG changes, other sinister signs of hyponatremia. She should get all of her labs rechecked in 24 to 48 hours. She can return here at any given time for repeat labs. Otherwise, follow-up closely with PCP. Plan of care was discussed with patient and all questions answered. The patient is agreeable to be discharged home and both verbal and printed discharge instructions were provided.The patient agreed to seek outpatient follow up as discussed. The patient was given strict instructions to return to the emergency department for worsening symptoms or any other emergent concerns. The patient verbalized understanding. Will see patient in: office Counseled pt/family regarding: lab results, diagnosis, need for follow-up - Departure Departure Disposition: Home Clinical Impression: Muscle cramps, Hyponatremia Condition: Stable Critical Care Time: No Referrals: MISSAEL RDZ MD [Primary Care Provider] - Instructions: Hyponatremia, Sodium Test Additional Instructions: See your PCP on Monday for repeat lab exams (sodium, potassium, magnesium)
[2020-10-17 00:24] LABS: Absolute Neutrophil Ct (ANC) 3.15 (1.4-6.9); BASOPHIL % 0.6 % (0.0-0.4); Basophil (Absolute #) 0.04 (0-0.4); Eosinophil % 1.6 % (0.00-5.0); Hematocrit 30.8 % (35-47); Hemoglobin 10.5 gm/dl (12.0-16.0); Lymphocytes % 39.4 % (24.0-44.0); Mean Cell Volume 104.8 fl (78-100); Mean Corpuscular Hemoglobin 35.7 pg (26-32); Mean Corpuscular Hgb Concent. 34.1 g/dl (32-36); Mean Platelet Volume 10.2 fl (7.5-11.0); Monocyte (Absolute #) 0.55 (0.0-1.3); Monocytes % 8.7 % (0.0-12.0); Neutrophil % 49.7 % (36.0-66.0); Platelet Count 376 K/mm3 (150-450); Red Blood Count 2.94 M/mm3 (4.1-5.4); Red Cell Distribution Width 12.4 % (11.5-14.0); White Blood Count 6.3 K/mm3 (4.0-10.5)
[2020-10-17] MEDS ORDERED: Magnesium 1 Gm / 100 Ml D5W*** 100 ML IV ONE (00:28)
[2020-10-17] MEDS ORDERED: BABY ASPIRIN 81 MG CHEW ONE (00:28)
[2020-10-17] MEDS ORDERED: TYLENOL 325 MG ONE (00:28)
[2020-10-17] MEDS ORDERED: Sodium Chloride 0.9% 1000 ML 1,000 ML ONE (00:28)
[2020-10-17 00:37] LABS: ALKALINE PHOSPHATASE 74 U/L (38-126); CHLORIDE 94 mmol/L (98-107); Calcium 8.1 mg/dL (8.4-10.2); Carbon Dioxide 24 mmol/L (22-30); Creatinine 1 0.44 mg/dL (0.52-1.04); EST GLOMERULAR FILTRATION RATE > 60.0 ML/MIN; Glucose 90 mg/dL (74-106); LIPASE 30 U/L (23-300); MAGNESIUM 1.7 mg/dL (1.6-2.3); Potassium 3.1 mmol/L (3.5-5.1); SGOT/AST 68 U/L (14-36); SGPT/ALT 26 U/L (0-35); SODIUM 127 mmol/L (137-145); Total Protein 5.6 g/dL (6.3-8.2)
[2020-10-17 00:38] LABS: BLOOD UREA NITROGEN < 2 mg/dL (7-17)
[2020-10-17 01:37] LABS: Appearance CLEAR (CLEAR); Bilirubin NEGATIVE (NEGATIVE); Blood NEGATIVE Ery/ul (0-5); Epithelial Cells RARE /HPF (FEW); Glucose NEGATIVE (NEGATIVE); Ketones NEGATIVE (NEGATIVE); Leukocyte Esterase NEGATIVE (NEGATIVE); Mucus SLIGHT /HPF (NEGATIVE); Nitrite NEGATIVE (NEGATIVE); Protein,Urine Dip NEGATIVE (Negative); Specific Gravity 1.003 (1.005-1.025); Urobilinogen NEGATIVE mg/dL (0-1)
[2020-10-17 02:05] VITALS: BP 114/76; PULSE 78
== END 2020-10-17 01:50 | disposition home or self-care (01) ==
LOC: ED 22:53
DX: R25.2 Cramp and spasm (principal); E87.1 Hypo-osmolality and hyponatremia
CPT/HCPCS: 36000; 36415; 80053; 81001; 83690; 83735; 85025; 93005; 96360; 99284; J3475; A9270-GY

== ENCOUNTER 2020-10-21 14:47 | Emergency (ER) | payer OTHER ==
[2020-10-21] MEDS ORDERED: MORPHINE SULFATE 4 MG INJ IV ONE (15:15)
[2020-10-21] MEDS ORDERED: Zofran 4 MG/2 ML VIAL IV ONE (15:15)
[2020-10-21] MEDS ORDERED: Sodium Chloride 0.9% 1000 ML 1,000 ML IV STA (15:15)
[2020-10-21] MEDS ORDERED: TYLENOL 325 MG PO ONE (15:15)
[2020-10-21] MEDS ORDERED: Ativan 2 MG/1 ML VIAL IV ONE (15:16)
[2020-10-21] MEDS ORDERED: MORPHINE SULFATE 4 MG INJ ONE (15:17)
[2020-10-21] MEDS ORDERED: Ativan 2 MG/1 ML VIAL ONE (15:17)
[2020-10-21] MEDS ORDERED: Zofran 4 MG/2 ML VIAL ONE (15:17)
[2020-10-21] MEDS ORDERED: Sodium Chloride 0.9% 1000 ML 1,000 ML ONE (15:17)
[2020-10-21] MEDS ORDERED: TYLENOL 325 MG ONE (15:20)
[2020-10-21 15:45] LABS: BASOPHIL % 0.3 % (0.0-0.4); Basophil (Absolute #) 0.03 (0-0.4); Eosinophil % 0.5 % (0.00-5.0); Eosinophil (Absolute #) 0.05 (0-0.5); Hemoglobin 11.7 gm/dl (12.0-16.0); Lymphocyte (Absolute #) 2.03 (1.0-4.6); Lymphocytes % 21.8 % (24.0-44.0); Mean Cell Volume 105.4 fl (78-100); Mean Corpuscular Hemoglobin 35.2 pg (26-32); Mean Corpuscular Hgb Concent. 33.4 g/dl (32-36); Monocyte (Absolute #) 0.52 (0.0-1.3); Monocytes % 5.6 % (0.0-12.0); Neutrophil % 71.8 % (36.0-66.0); Platelet Count 385 K/mm3 (150-450); Red Blood Count 3.32 M/mm3 (4.1-5.4); Red Cell Distribution Width 13.1 % (11.5-14.0); White Blood Count 9.3 K/mm3 (4.0-10.5)
[2020-10-21 16:01] LABS: ALBUMIN 3.5 g/dL (3.5-5.0); ALKALINE PHOSPHATASE 98 U/L (38-126); ANION GAP 15.5 MEQ/L (5-15); CHLORIDE 101 mmol/L (98-107); Calcium 8.6 mg/dL (8.4-10.2); Carbon Dioxide 21 mmol/L (22-30); Glucose 93 mg/dL (74-106); Potassium 3.2 mmol/L (3.5-5.1); SGOT/AST 30 U/L (14-36); SGPT/ALT 20 U/L (0-35); SODIUM 134 mmol/L (137-145); Total Protein 6.4 g/dL (6.3-8.2)
[2020-10-21 16:03] LABS: BLOOD UREA NITROGEN < 2 mg/dL (7-17); Creatinine 1 0.43 mg/dL (0.52-1.04); EST GLOMERULAR FILTRATION RATE > 60.0 ML/MIN
[2020-10-21 16:05] VITALS: BP 110/72
[2020-10-21 16:08] LABS: Appearance CLEAR (CLEAR); Bilirubin NEGATIVE (NEGATIVE); Blood NEGATIVE Ery/ul (0-5); Epithelial Cells RARE /HPF (FEW); Glucose NEGATIVE (NEGATIVE); Ketones NEGATIVE (NEGATIVE); Leukocyte Esterase NEGATIVE (NEGATIVE); Nitrite NEGATIVE (NEGATIVE); Protein,Urine Dip NEGATIVE (Negative); Specific Gravity 1.004 (1.005-1.025); Urobilinogen NEGATIVE mg/dL (0-1)
--- NOTE | 2020-10-21 16:09 | ERPHSYRPT ---
- History of Present Illness Time Seen by Provider: 10/21/20 15:00 Source: patient Exam Limitations: no limitations Patient Subjective Stated Complaint: Pt complains of cramping in her entire body Triage Nursing Assessment: Pt brought to the ER by EMS, tachycardic, rates pain over entire body as 04/25, was here at this ER about a week ago for the same thing and got no relief, pt has a neurology appt on the 11/02/20, pulses normal, doesn't appear to be in any real distress Physician History: 40 years old female with history of chronic pain, carpopedal spasms, anxiety, electrolyte imbalances presented in the ER with chief complaint of stiffness in the hand/wrist and cramps all over. Patient report having similar symptoms multiple times in the past. She was evaluated in the ER a few days ago but does not seem that her symptoms are completely going away. She has been scheduled to see neurology later this month. Denies any focal weakness but weakness all over because of the pain. Denies any chest pain palpitations or shortness of breath. No abdominal pain nausea or vomiting. Denies any headache dizziness or lightheadedness. Patient reports her hands and fingers get stiff and is having difficulty movements. Patient is hyperventilating. Timing/Duration: today, gradual onset, worse Severity: moderate Associated Symptoms: malaise, weakness, No nausea, No vomiting, No abdominal pain, No shortness of breath, No heartburn, No cough, No chills, No chest pain, No fever, No headaches, No syncope, No seizure Allergies/Adverse Reactions: No Known Drug Allergies Allergy (Verified 10/21/20 14:58) Home Medications: Magnesium Oxide 400 mg [Mag-Ox 400] 2 tab PO DAILY 10/16/20 [History] Potassium Chloride [Klor-Con M10] 1 tab PO BID 10/16/20 [History] Pregabalin 1 cap PO BID 10/16/20 [History] Hx Tetanus, Diphtheria Vaccination/Date Given: Yes Hx Influenza Vaccination/Date Given: Yes Hx Pneumococcal Vaccination/Date Given: No Travel Risk - International Travel Have you traveled outside of the country in past 3 weeks: No - Coronavirus Screening Are you exhibiting any of the following symptoms?: No Close contact with a COVID-19 positive Pt in past 14-21 Days: No - Vaccine Status Have you recieved a Covid-19 vaccination: No - Review of Systems Constitutional: Fatigue Eyes: No Symptoms Ears, Nose, & Throat: No Symptoms Respiratory: No Symptoms Cardiac: No Symptoms Abdominal/Gastrointestinal: No Symptoms Genitourinary Symptoms: No Symptoms Musculoskeletal: Myalgias Neurological: No Symptoms Psychological: Anxiety Endocrine: No Symptoms Hematologic/Lymphatic: No Symptoms Immunological/Allergic: No Symptoms - Past Medical History Pertinent Past Medical History: Yes Neurological History: No Pertinent History ENT History: No Pertinent History Cardiac History: No Pertinent History Respiratory History: No Pertinent History Endocrine Medical History: No Pertinent History Musculoskeletal History: Fibromyalgia GI Medical History: No Pertinent History History: No Pertinent History Psycho-Social History: Anxiety Female Reproductive Disorders: No Pertinent History Other Medical History: tail bone fracture, toe fracture - Past Surgical History Past Surgical History: Yes Neuro Surgical History: No Pertinent History Cardiac: No Pertinent History Respiratory: No Pertinent History Gastrointestinal: Appendectomy Genitourinary: No Pertinent History Musculoskeletal: No Pertinent History Female Surgical History: Tubal Ligation Other Surgical History: rhinoplasty - Social History Smoking Status: Current every day smoker How long have you smoked: 16 Exposure to second hand smoke: Yes Drug Use: none Patient Lives Alone: No - Female History Hx Now: No (tubal) - Nursing Vital Signs Nursing Vital Signs: Initial Vital Signs Temperature 98.3 F 10/21/20 14:50 Pulse Rate 103 H 10/21/20 14:50 Blood Pressure 114/89 10/21/20 14:50 O2 Sat by Pulse Oximetry 99 10/21/20 14:50 Pain Scale Pain Intensity [Anterior/ 10 Posterior Generalized] Pain Intensity 4 - Physical Exam General Appearance: no apparent distress, alert, anxiety Eye Exam: PERRL/EOMI, eyes nml inspection Ears, Nose, Throat Exam: normal ENT inspection, TMs normal, pharynx normal Neck Exam: normal inspection, non-tender, supple, full range of motion, No Brudzinski, No Kernig's Respiratory Exam: normal breath sounds, lungs clear, No chest tenderness Cardiovascular Exam: regular rate/rhythm, normal heart sounds Gastrointestinal/Abdomen Exam: soft, normal bowel sounds Back Exam: normal inspection, normal range of motion Extremity Exam: other (Carpopedal spasms with intact passive range of motion.) Neurologic Exam: alert, oriented x 3, cooperative, sensation nml, No normal mood/affect, No motor deficits Skin Exam: normal color SpO2 Interpretation: normal SpO2: 99 O2 Delivery: Room Air - Course Nursing assessment & vital signs reviewed: Yes EKG Interpreted by Me: RATE ([id number]), Sinus Tach, NORMAL AXIS, prolonged QT interval, Non-specific ST Changes Ordered Tests: Active Orders 24 hr Category Date Time Status EKG-ER Only STAT Care 10/21/20 15:17 Completed IV Insertion STAT Care 10/21/20 15:08 Completed cath [Cath for Specimen-Straight] STAT Care 10/21/20 15:58 Completed CHEST 1 VIEW (PORTABLE) Stat Exams 10/21/20 15:28 Completed CBC W DIFF Stat Lab 10/21/20 15:27 Completed CMP Stat Lab 10/21/20 15:27 Completed CULTURE,URINE Stat Lab 10/21/20 15:58 Received HCG,QUALITATIVE URINE Stat Lab 10/21/20 15:58 Completed MAG [MAGNESIUM] Stat Lab 10/21/20 16:08 Completed TROPONIN Q3H Lab 10/21/20 15:27 Completed UA W/RFX UR CULTURE Stat Lab 10/21/20 15:58 Completed Medication Summary Discontinued Medications Generic Name Dose Route Start Last Admin Trade Name Freq PRN Reason Stop Dose Admin Acetaminophen 975 mg 10/21/20 15:15 10/21/20 15:21 Tylenol 325 Mg PO 10/21/20 15:16 975 mg STAT ONE Administration Acetaminophen Confirm 10/21/20 15:20 Tylenol 325 Mg Administered 10/21/20 15:21 Dose 975 mg .ROUTE .STK-MED ONE Sodium Chloride 1,000 mls @ 250 mls/hr 10/21/20 15:15 10/21/20 15:19 Sodium Chloride 0.9% 1000 Ml IV 10/21/20 19:14 250 mls/hr .Q4H STA Administration Sodium Chloride Confirm 10/21/20 15:17 Sodium Chloride 0.9% 1000 Ml Administered 10/21/20 15:18 Dose 1,000 mls @ ud .ROUTE .STK-MED ONE Ketorolac Tromethamine 30 mg 10/21/20 16:26 10/21/20 16:44 Toradol 30 Mg Injection IV 10/21/20 16:27 30 mg STAT ONE Administration Ketorolac Tromethamine Confirm 10/21/20 16:32 Toradol 30 Mg Injection Administered 10/21/20 16:33 Dose 30 mg .ROUTE .STK-MED ONE Lorazepam 1 mg 10/21/20 15:16 10/21/20 15:19 Ativan 2 Mg/1 Ml Vial IV 10/21/20 15:17 1 mg STAT ONE Administration Lorazepam Confirm 10/21/20 15:17 Ativan 2 Mg/1 Ml Vial Administered 10/21/20 15:18 Dose 2 mg .ROUTE .STK-MED ONE Morphine Sulfate 4 mg 10/21/20 15:15 10/21/20 15:19 Morphine Sulfate 4 Mg Inj IV 10/21/20 15:16 4 mg STAT ONE Administration Morphine Sulfate Confirm 10/21/20 15:17 Morphine Sulfate 4 Mg Inj Administered 10/21/20 15:18 Dose 4 mg .ROUTE .STK-MED ONE Ondansetron HCl 4 mg 10/21/20 15:15 10/21/20 15:19 Zofran 4 Mg/2 Ml Vial IV 10/21/20 15:16 4 mg STAT ONE Administration Ondansetron HCl Confirm 10/21/20 15:17 Zofran 4 Mg/2 Ml Vial Administered 10/21/20 15:18 Dose 4 mg .ROUTE .STK-MED ONE Lab/Rad Data: Laboratory Result Diagrams 10/21/20 15:27 10/21/20 15:27 Laboratory Results 10/21/20 10/21/20 10/21/20 Range/Units 16:08 15:58 15:58 WBC (4.0-10.5) K/mm3 RBC (4.1-5.4) M/mm3 Hgb (12.0-16.0) gm/dl Hct (35-47) % MCV (78-100) fl MCH (26-32) pg MCHC (32-36) g/dl RDW (11.5-14.0) % Plt Count (150-450) K/mm3 MPV (7.5-11.0) fl Gran % (36.0-66.0) % Eos # (Auto) (0-0.5) Absolute Lymphs (auto) (1.0-4.6) Absolute Monos (auto) (0.0-1.3) Lymphocytes % (24.0-44.0) % Monocytes % (0.0-12.0) % Eosinophils % (0.00-5.0) % Basophils % (0.0-0.4) % Absolute Granulocytes (1.4-6.9) Basophils # (0-0.4) Sodium (137-145) mmol/L Potassium (3.5-5.1) mmol/L Chloride (98-107) mmol/L Carbon Dioxide (22-30) mmol/L Anion Gap (5-15) MEQ/L BUN (7-17) mg/dL Creatinine (0.52-1.04) mg/dL Estimated GFR ML/MIN Glucose (74-106) mg/dL Calcium (8.4-10.2) mg/dL Magnesium 1.9 (1.6-2.3) mg/dL Total Bilirubin (0.2-1.3) mg/dL AST (14-36) U/L ALT (0-35) U/L Alkaline Phosphatase (38-126) U/L Troponin I (0.000-0.034) ng/mL Serum Total Protein (6.3-8.2) g/dL Albumin (3.5-5.0) g/dL Urine Color YELLOW (YELLOW) Urine Appearance CLEAR (CLEAR) Urine pH 7.0 (5-6) Ur Specific [place] 1.004 (1.005-1.025) Urine Protein NEGATIVE (Negative) Urine Ketones NEGATIVE (NEGATIVE) Urine Blood NEGATIVE (0-5) Cristofer/ul Urine Nitrite NEGATIVE (NEGATIVE) Urine Bilirubin NEGATIVE (NEGATIVE) Urine Urobilinogen NEGATIVE (0-1) mg/dL Ur Leukocyte Esterase NEGATIVE (NEGATIVE) Urine WBC (Auto) NONE (0-5) /HPF Urine RBC (Auto) NONE (0-2) /HPF U Epithel Cells (Auto) RARE (FEW) /HPF Urine Bacteria (Auto) NONE (NEGATIVE) /HPF Urine Culture Reflexed YES (NO) Urine Glucose NEGATIVE (NEGATIVE) mg/dL Urine HCG, Qual NEGATIVE (Negative) 10/21/20 10/21/20 10/21/20 Range/Units 15:27 15:27 15:27 WBC 9.3 (4.0-10.5) K/mm3 RBC 3.32 L (4.1-5.4) M/mm3 Hgb 11.7 L (12.0-16.0) gm/dl Hct 35.0 (35-47) % MCV 105.4 H (78-100) fl MCH 35.2 H (26-32) pg MCHC 33.4 (32-36) g/dl RDW 13.1 (11.5-14.0) % Plt Count 385 (150-450) K/mm3 MPV 11.0 (7.5-11.0) fl Gran % 71.8 H (36.0-66.0) % Eos # (Auto) 0.05 (0-0.5) Absolute Lymphs (auto) 2.03 (1.0-4.6) Absolute Monos (auto) 0.52 (0.0-1.3) Lymphocytes % 21.8 L (24.0-44.0) % Monocytes % 5.6 (0.0-12.0) % Eosinophils % 0.5 (0.00-5.0) % Basophils % 0.3 (0.0-0.4) % Absolute Granulocytes 6.70 (1.4-6.9) Basophils # 0.03 (0-0.4) Sodium 134 L (137-145) mmol/L Potassium 3.2 L (3.5-5.1) mmol/L Chloride 101 (98-107) mmol/L Carbon Dioxide 21 L (22-30) mmol/L Anion Gap 15.5 H (5-15) MEQ/L BUN < 2 L (7-17) mg/dL Creatinine 0.43 L (0.52-1.04) mg/dL Estimated GFR > 60.0 ML/MIN Glucose 93 (74-106) mg/dL Calcium 8.6 (8.4-10.2) mg/dL Magnesium (1.6-2.3) mg/dL Total Bilirubin 0.60 (0.2-1.3) mg/dL AST 30 (14-36) U/L ALT 20 (0-35) U/L Alkaline Phosphatase 98 (38-126) U/L Troponin I < 0.012 (0.000-0.034) ng/mL Serum Total Protein 6.4 (6.3-8.2) g/dL Albumin 3.5 (3.5-5.0) g/dL Urine Color (YELLOW) Urine Appearance (CLEAR) Urine pH (5-6) Ur Specific [place] (1.005-1.025) Urine Protein (Negative) Urine Ketones (NEGATIVE) Urine Blood (0-5) Cristofer/ul Urine Nitrite (NEGATIVE) Urine Bilirubin (NEGATIVE) Urine Urobilinogen (0-1) mg/dL Ur Leukocyte Esterase (NEGATIVE) Urine WBC (Auto) (0-5) /HPF Urine RBC (Auto) (0-2) /HPF U Epithel Cells (Auto) (FEW) /HPF Urine Bacteria (Auto) (NEGATIVE) /HPF Urine Culture Reflexed (NO) Urine Glucose (NEGATIVE) mg/dL Urine HCG, Qual (Negative) - Progress Progress: improved Progress Note: 10/21/20 16:29 She is given fluid bolus along with symptomatic treatment for pain and muscle relaxant, on reevaluation feeling much better. She is also given Ativan. Work- up is negative again for any acute findings. I believe patient's symptoms are partly because of her anxiety causing hyperventilation leading to carpopedal spasms. She does have appointment with neurology which she is advised to keep. No other obvious finding in the work-up, recommended outpatient follow-up. Counseled pt/family regarding: lab results, diagnosis, need for follow-up, rad results - Departure Departure Disposition: Home Clinical Impression: Carpopedal spasm, Generalized weakness Chronic pain Qualifiers: Chronic pain type: other chronic pain Qualified Code(s): G89.29 - Other chronic pain Condition: Stable Critical Care Time: No Referrals: MISSAEL RDZ MD [Primary Care Provider] - (1-2 days for reevaluation) Instructions: Chronic Pain (DC), Muscle Spasms (DC) Additional Instructions: Take Tylenol/ibuprofen as needed. Follow-up with primary care for reevaluation. Return to ER for worsening. Keep appointment with neurology. Prescriptions: Ibuprofen 600 mg PO Q6HPRN PRN 10 Days #20 tablet PRN Reason: Pain Methocarbamol [Robaxin-750] 750 mg PO TID 4 Days #12 tablet
--- NOTE | 2020-10-21 16:12 | XRAY ---
Indication: Short of breath. Tachypnea. Comparison: September 24, 2020. Portable chest demonstrates stable left base fibrosis/scarring. Remaining heart and lungs normal. No new/acute findings.
[2020-10-21] MEDS ORDERED: TORAdol 30 mg Injection IV ONE (16:26)
[2020-10-21] MEDS ORDERED: TORAdol 30 mg Injection ONE (16:32)
[2020-10-21 17:23] VITALS: PULSE 70
[2020-10-21 22:46] VITALS: O2SAT 99
== END 2020-10-21 17:23 | disposition home or self-care (01) ==
LOC: ED 14:47
DX: R29.0 Tetany (principal); R53.1 Weakness; G89.29 Other chronic pain; F45.42 Pain disorder with related psychological factors
CPT/HCPCS: 36000; 36415; 71045; 80053; 81001; 83735; 84484; 84703; 85025; 87086; 93005; 96360; 96361; 96374; 96375; 99285; P9612; J1885; J2060; J2270; J2405; A9270-GY

== ENCOUNTER 2020-11-18 14:46 | Day surgery (SDC) | payer OTHER ==
[2013-04-10 21:33] VITALS: BP 124/72
[2020-11-18] MEDS ORDERED: Sensorcaine 0.25% 10 ML IJ ONE (14:47)
[2020-11-18] MEDS ORDERED: Xylocaine 1% Vial 30 ML PF IJ ONE (14:47)
[2020-11-18] MEDS ORDERED: Lactated Ringers 1,000 ML IV ONE (16:07)
--- NOTE | 2020-11-18 16:47 | XRAY ---
32 seconds fluoroscopy time in surgery for left lumbar sympathetic nerve block.
--- NOTE | 2020-11-18 16:57 | XRAY ---
Indication: Left lumbar sympathetic nerve block. Intraoperative fluoroscopy provided for 32 seconds. 3 digital spot image submitted for interpretation demonstrates left posterior needle tip projecting just anterior to mid lumbar segment, probably L2. Small amount of contrast injected for needle tip placement. Correlate with intraoperative findings/report.
== END 2020-11-18 16:23 | disposition home or self-care (01) ==
LOC: SDC-PAIN 14:46
PROVIDERS: ATTEND Psychiatry & Neurology Pain Medicine
DX: G90.529 Complex regional pain syndrome I of unspecified lower limb (principal); N18.9 Chronic kidney disease, unspecified; G47.00 Insomnia, unspecified; G62.9 Polyneuropathy, unspecified; Z79.899 Other long term (current) drug therapy
CPT/HCPCS: 72020; 77002; 84703; J2001

== ENCOUNTER 2022-06-27 10:13 | Emergency (ER) | payer OTHER ==
[2022-06-27] MEDS ORDERED: Sodium Chloride 0.9% 1000 ML 1,000 ML IV STA (10:36)
[2022-06-27] MEDS ORDERED: Zofran 4 MG/2 ML VIAL IV ONE (10:37)
[2022-06-27] MEDS ORDERED: Sodium Chloride 0.9% 1000 ML 1,000 ML ONE (10:38)
[2022-06-27] MEDS ORDERED: Zofran 4 MG/2 ML VIAL ONE (10:38)
[2022-06-27 11:02] LABS: Absolute Neutrophil Ct (ANC) 4.41 x10^3/uL (1.4-6.9); Basophil (Absolute #) 0.04 x10^3/uL (0-0.4); Eosinophil % 0.3 % (0.00-5.0); Eosinophil (Absolute #) 0.02 x10^3/uL (0-0.5); Hematocrit 40.1 % (35-47); Hemoglobin 13.8 g/dL (12.0-16.0); Lymphocyte (Absolute #) 1.55 x10^3/uL (1.0-4.6); Lymphocytes % 24.2 % (24.0-44.0); Mean Cell Volume 109.3 fL (78-100); Mean Corpuscular Hemoglobin 37.6 pg (26-32); Mean Corpuscular Hgb Concent. 34.4 g/dL (32-36); Mean Platelet Volume 11.1 fL (7.5-11.0); Monocyte (Absolute #) 0.37 x10^3/uL (0.0-1.3); Monocytes % 5.8 % (0.0-12.0); Neutrophil % 68.9 % (36.0-66.0); Platelet Count 329 x10^3/uL (150-450); Red Blood Count 3.67 x10^6/uL (4.1-5.4); Red Cell Distribution Width 14.7 % (11.5-14.0); White Blood Count 6.4 x10^3/uL (4.0-10.5)
--- NOTE | 2022-06-27 11:03 | ERPHSYRPT ---
- History of Present Illness Time Seen by Provider: 06/27/22 10:54 Exam Limitations: no limitations Patient Subjective Stated Complaint: Pt brought to by her dad and then sent to the ER by the CHARGE MACHINE OPERATOR due to vomiting, diarrhea, cough and weakness for the past weak, covid, flu, RSV and strep all came back negative at Triage Nursing Assessment: Pt brought to by her dad and then sent to the ER by the CHARGE MACHINE OPERATOR due to vomiting, diarrhea, cough, sore throat, and weakness for the past weak, covid, flu, RSV and strep all came back negative at , vitals wnl, denies pain, skin pale, hasn't been able to eat or drink in a week, states that it all comes right back up, pulses normal, dry heaving Physician History: Patient a 42-year-old female presents emergency department for evaluation and treatment of nausea and vomiting. Patient went to [facility] and was referred to our ED for further evaluation and treatment. While at [facility] she was tested for flu COVID RSV and strep. Patient has a mild sore throat. Patient's work-up was negative at the [facility]. Patient states that she has been feeling unwell for approximately 1 week. Decreased p.o. No diarrhea. No rash. Patient voices no other complaints concerns at this time. Portions of this note were created with voice recognition technology. There may be grammatical, spelling, punctuation or sound alike errors Timing/Duration: week(s) Severity: moderate Modifying Factors: Improves With: nothing Associated Symptoms: other (Mild sore throat), No abdominal pain, No shortness o f breath, No chest pain Allergies/Adverse Reactions: No Known Drug Allergies Allergy (Verified 06/27/22 10:32) Home Medications: Gabapentin 1,200 mg PO HS 06/27/22 [History] Hydrocodone/Acetaminophen [Hydrocodone-Acetamin 7.5-325] 1 each PO BID 06/27/22 [History] Hx Tetanus, Diphtheria Vaccination/Date Given: Yes Hx Influenza Vaccination/Date Given: No Hx Pneumococcal Vaccination/Date Given: No Travel Risk - International Travel Have you traveled outside of the country in past 3 weeks: No - Coronavirus Screening Are you exhibiting any of the following symptoms?: Yes Symptoms: Cough: New Onset, Vomiting/Diarrhea - Vaccine Status Have you recieved a Covid-19 vaccination: No - Review of Systems Constitutional: No Symptoms, No Fever, No Chills Eyes: No Symptoms Ears, Nose, & Throat: No Symptoms Respiratory: No Symptoms, No Cough, No Dyspnea Cardiac: No Symptoms, No Chest Pain, No Edema, No Syncope Abdominal/Gastrointestinal: No Symptoms, No Abdominal Pain, No Nausea, No Vomiting, No Diarrhea Genitourinary Symptoms: No Symptoms, No Dysuria Musculoskeletal: No Symptoms, No Back Pain, No Neck Pain Skin: No Symptoms, No Rash Neurological: No Symptoms, No Dizziness, No Focal Weakness, No Sensory Changes Psychological: No Symptoms Endocrine: No Symptoms Hematologic/Lymphatic: No Symptoms Immunological/Allergic: No Symptoms All Other Systems: Reviewed and Negative - Past Medical History Pertinent Past Medical History: Yes Neurological History: Peripheral Neuropathy, Other ENT History: No Pertinent History Cardiac History: No Pertinent History Respiratory History: No Pertinent History Endocrine Medical History: Other Musculoskeletal History: Fractures, Other GI Medical History: No Pertinent History History: No Pertinent History Psycho-Social History: Anxiety Female Reproductive Disorders: No Pertinent History Other Medical History: acute kidney failure, broken R pinky toe, tubal ligation, appendectomy, rhinoplasty, B Carpal Tunnel Syndrome, B wrist pain, CRPS (lower limb), fibromyalgia, insomnia, anxiety, depression - Past Surgical History Past Surgical History: Yes Neuro Surgical History: No Pertinent History Cardiac: No Pertinent History Respiratory: No Pertinent History Gastrointestinal: Appendectomy Genitourinary: No Pertinent History Musculoskeletal: No Pertinent History Female Surgical History: Tubal Ligation Other Surgical History: rhinoplasty - Social History Smoking Status: Current every day smoker How long have you smoked: 16 Exposure to second hand smoke: Yes Drug Use: none Patient Lives Alone: Yes - Female History Hx Now: No - Nursing Vital Signs Nursing Vital Signs: Initial Vital Signs Temperature 96.8 F 06/27/22 10:18 Pulse Rate 95 H 06/27/22 10:18 Blood Pressure 116/90 06/27/22 10:18 O2 Sat by Pulse Oximetry 100 06/27/22 10:18 Pain Scale Pain Intensity 0 - Physical Exam General Appearance: no apparent distress, alert Eye Exam: PERRL/EOMI, eyes nml inspection Ears, Nose, Throat Exam: normal ENT inspection, TMs normal, pharynx normal, moist mucous membranes Neck Exam: normal inspection, non-tender, supple, full range of motion Respiratory Exam: normal breath sounds, lungs clear, No respiratory distress Cardiovascular Exam: regular rate/rhythm, normal heart sounds, normal peripheral pulses Gastrointestinal/Abdomen Exam: soft, normal bowel sounds, No tenderness, No mass Back Exam: normal inspection, normal range of motion, No CVA tenderness, No vertebral tenderness Extremity Exam: normal inspection, normal range of motion, pelvis stable Neurologic Exam: alert, oriented x 3, cooperative, normal mood/affect, nml cerebellar function, nml station & gait, sensation nml, No motor deficits Skin Exam: normal color, warm, dry, No rash Lymphatic Exam: No adenopathy SpO2 Interpretation: normal SpO2: 100 O2 Delivery: Room Air - Course Nursing assessment & vital signs reviewed: Yes Ordered Tests: Active Orders 24 hr Category Date Time Status IV Insertion STAT Care 06/27/22 10:45 Active CBC W DIFF Stat Lab 06/27/22 11:05 Completed CMP Stat Lab 06/27/22 11:05 Completed LIPASE Stat Lab 06/27/22 11:13 Completed TROPONIN Q4H Lab 06/27/22 11:13 Completed TROPONIN Q4H Lab 06/27/22 15:15 Ordered TROPONIN Q4H Lab 06/27/22 19:15 Ordered UA W/RFX CULTURE Stat Lab 06/27/22 Ordered Medication Summary Discontinued Medications Generic Name Dose Route Start Last Admin Trade Name Karstenq PRN Reason Stop Dose Admin Sodium Chloride 1,000 mls @ 999 mls/hr 06/27/22 10:36 06/27/22 11:40 Sodium Chloride 0.9% 1000 Ml IV 06/27/22 11:36 Infused .Q1H1M STA Infusion Sodium Chloride Confirm 06/27/22 10:38 Sodium Chloride 0.9% 1000 Ml Administered 06/27/22 10:39 Dose 1,000 mls @ ud .ROUTE .STK-MED ONE Ondansetron HCl 4 mg 06/27/22 10:37 06/27/22 10:39 Ondansetron Hcl 4 Mg/2 Ml Vial IV 06/27/22 10:38 4 mg STAT ONE Administration Ondansetron HCl Confirm 06/27/22 10:38 Ondansetron Hcl 4 Mg/2 Ml Vial Administered 06/27/22 10:39 Dose 4 mg .ROUTE .STK-MED ONE Lab/Rad Data: Laboratory Result Diagrams 06/27/22 11:05 06/27/22 11:05 Laboratory Results 06/27/22 06/27/22 06/27/22 Range/Units 11:13 11:05 11:05 WBC 6.4 (4.0-10.5) x10^3/uL RBC 3.67 L (4.1-5.4) x10^6/uL Hgb 13.8 (12.0-16.0) g/dL Hct 40.1 (35-47) % MCV 109.3 H (78-100) fL MCH 37.6 H (26-32) pg MCHC 34.4 (32-36) g/dL RDW 14.7 H (11.5-14.0) % Plt Count 329 (150-450) x10^3/uL MPV 11.1 H (7.5-11.0) fL Gran % 68.9 H (36.0-66.0) % Immature Gran % (Auto) 0.2 (0.00-0.4) % Nucleat RBC Rel Count 0.0 (0.00-0.1) % Eos # (Auto) 0.02 (0-0.5) x10^3/uL Immature Gran # (Auto) 0.01 (0.00-0.03) x10^3u/L Absolute Lymphs (auto) 1.55 (1.0-4.6) x10^3/uL Absolute Monos (auto) 0.37 (0.0-1.3) x10^3/uL Absolute Nucleated RBC 0.00 (0.00-0.01) x10^3u/L Lymphocytes % 24.2 (24.0-44.0) % Monocytes % 5.8 (0.0-12.0) % Eosinophils % 0.3 (0.00-5.0) % Basophils % 0.6 (0.0-0.4) % Absolute Granulocytes 4.41 (1.4-6.9) x10^3/uL Basophils # 0.04 (0-0.4) x10^3/uL Sodium 136 L (137-145) mmol/L Potassium 3.7 (3.5-5.1) mmol/L Chloride 100 (98-107) mmol/L Carbon Dioxide 26 (22-30) mmol/L Anion Gap 13.0 (5-15) MEQ/L BUN 3 L (7-17) mg/dL Creatinine 0.43 L (0.52-1.04) mg/dL Estimated GFR > 60.0 ML/MIN Glucose 113 H (74-106) mg/dL Calcium 8.3 L (8.4-10.2) mg/dL Total Bilirubin 0.70 (0.2-1.3) mg/dL AST 100 H (14-36) U/L ALT 43 H (0-35) U/L Alkaline Phosphatase 167 H (38-126) U/L Troponin I < 0.012 (0.000-0.034) ng/mL Serum Total Protein 7.3 (6.3-8.2) g/dL Albumin 4.1 (3.5-5.0) g/dL Lipase 81 (23-300) U/L - Progress Progress: improved Progress Note: Patient reassessed. She feels well. Nausea resolved. Patient tolerating p.o. well. Will discharge home. IV fluids infused. Laboratory work-up essentially nonremarkable. Patient has no abdominal pain. Patient agrees to follow-up with her primary care doctor within 48 hours for evaluation. Patient has no urinary symptomology. Urinalysis discontinued. Portions of this note were created with voice recognition technology. There may be grammatical, spelling, punctuation or sound alike errors 06/27/22 12:07 06/27/22 12:11 Counseled pt/family regarding: lab results, diagnosis, need for follow-up - Departure Departure Disposition: Home Clinical Impression: Nausea and vomiting Condition: Stable Critical Care Time: No Referrals: MISSAEL RDZ MD [Primary Care Provider] - Follow up/PCP as directed Additional Instructions: Discharge/Care Plan ALBINO CHOI was seen on 06/27/22 in the Emergency Room. The patient was counseled regarding Diagnosis,Lab results, Imaging studies, need for follow up and when to return to the Emergency Room. Prescriptions given: Discharge Note I have spoken with the patient and/or caregivers. I have explained the patient's condition, diagnosis and treatment plan based on the information available to me at this time. I have answered the patient's and/or caregiver's questions and addressed any concerns. The patient and/or caregivers have as good understanding of the patient's diagnosis, condition and treatment plan as can be expected at this point. The vital signs have been stable. The patient's condition is stable and appropriate for discharge from the emergency department. The patient will pursue further outpatient evaluation with the primary care phys ician or other designated or consulting physician as outlined in the discharge instructions. The patient and/or caregivers are agreeable to this plan of care and follow-up instructions have been explained in detail. The patient and/or caregivers have received these instruction. The patient/and or caregivers are aware that any significant change in condition or worsening of symptoms should prompt an immediate return to this or the closest emergency department or call 911. Prescriptions: Ondansetron ODT 4 MG [Zofran Odt 4 mg] 4 mg PO Q6H PRN PRN #10 tablet PRN Reason: Vomiting
[2022-06-27 11:16] LABS: ALBUMIN 4.1 g/dL (3.5-5.0); ALKALINE PHOSPHATASE 167 U/L (38-126); BLOOD UREA NITROGEN 3 mg/dL (7-17); CHLORIDE 100 mmol/L (98-107); Calcium 8.3 mg/dL (8.4-10.2); Carbon Dioxide 26 mmol/L (22-30); Creatinine 1 0.43 mg/dL (0.52-1.04); EST GLOMERULAR FILTRATION RATE > 60.0 ML/MIN; Glucose 113 mg/dL (74-106); Potassium 3.7 mmol/L (3.5-5.1); SGOT/AST 100 U/L (14-36); SGPT/ALT 43 U/L (0-35); SODIUM 136 mmol/L (137-145); Total Protein 7.3 g/dL (6.3-8.2)
[2022-06-27 11:36] LABS: TROPONIN < 0.012 ng/mL (0.000-0.034)
[2022-06-27 11:53] VITALS: PULSE 76
[2022-06-27 12:05] VITALS: BP 116/82
[2022-06-27 12:05] LABS: LIPASE 81 U/L (23-300)
[2022-06-27 12:12] VITALS: O2SAT 100
== END 2022-06-27 12:17 | disposition home or self-care (01) ==
LOC: ED 10:13
DX: R11.2 Nausea with vomiting, unspecified (principal); J02.9 Acute pharyngitis, unspecified; Z79.891 Long term (current) use of opiate analgesic; Z79.899 Other long term (current) drug therapy; Z28.310 Unvaccinated for COVID-19; Z72.0 Tobacco use
CPT/HCPCS: 36000; 36415; 80053; 83690; 84484; 85025; 96360; 96374; 99284; J2405

== ENCOUNTER 2023-07-22 15:23 | Emergency (ER) | payer OTHER ==
[2023-07-22 17:17] VITALS: TEMP 97.3
[2023-07-22] MEDS ORDERED: DUONEB 0.5-3 MG/3 ml Neb IH ONE ×2 (17:37→17:42)
--- NOTE | 2023-07-22 17:42 | ERPHSYRPT ---
- History of Present Illness Time Seen by Provider: 07/22/23 17:12 Source: patient, family Exam Limitations: no limitations Patient Subjective Stated Complaint: PT states "I have been sick for the last two weeks and I am sure my right hand is broken." Triage Nursing Assessment: Pt presented alert and oriented X 3, skin pwd. Pt ambulates with an uprigt unsteady gait, able to speak in clear full sentences. Pt has interemient productive cough. PT lateral right hand swollen. Physician History: 43 years old female with history of tobacco abuse, peripheral neuropathy presented in the ER with 2-week history of cough congestion which is getting worse lately. Patient has been using [id number] medications with no significant relief. Patient reports coughing up clear to yellow sputum. Denies any chest pain or palpitations. No difficulty breathing. Also reports subjective feeling of fever and chills. Positive contact with influenza B. Patient had boxer's fracture right hand which was managed by Dr. Chowdhury with placement of pins on July 08 but yesterday patient pulled the pins out and is complaining of increased pain and some swelling. Allergies/Adverse Reactions: azithromycin [From Zithromax] Adverse Reaction (Intermediate, Verified 07/22/23 21:33) Vomiting steroids Allergy (Severe, Uncoded 07/22/23 17:18) Swelling Home Medications: Gabapentin 1,200 mg PO HS 06/27/22 [History] Hx Tetanus, Diphtheria Vaccination/Date Given: Yes Hx Influenza Vaccination/Date Given: No Hx Pneumococcal Vaccination/Date Given: No Immunizations Up to Date: Yes Travel Risk - International Travel Have you traveled outside of the country in past 3 weeks: No - Coronavirus Screening Are you exhibiting any of the following symptoms?: Yes Symptoms: Fever, Cough: New Onset, Vomiting/Diarrhea Close contact with a COVID-19 positive Pt in past 14-21 Days: No - Vaccine Status Have you recieved a Covid-19 vaccination: No - Review of Systems Constitutional: Fever, Chills Eyes: No Symptoms Ears, Nose, & Throat: Nose Congestion Respiratory: Cough Cardiac: No Symptoms Abdominal/Gastrointestinal: No Symptoms Genitourinary Symptoms: No Symptoms Musculoskeletal: Joint Pain, Joint Swelling Skin: No Symptoms Neurological: No Symptoms Hematologic/Lymphatic: No Symptoms Immunological/Allergic: No Symptoms - Past Medical History Pertinent Past Medical History: Yes Neurological History: Peripheral Neuropathy, Other ENT History: No Pertinent History Cardiac History: No Pertinent History Respiratory History: No Pertinent History Endocrine Medical History: Other Musculoskeletal History: Fractures, Other GI Medical History: No Pertinent History History: No Pertinent History Psycho-Social History: Anxiety Female Reproductive Disorders: No Pertinent History Other Medical History: acute kidney failure, broken R pinky toe, tubal ligation, appendectomy, rhinoplasty, B Carpal Tunnel Syndrome, B wrist pain, CRPS (lower limb), fibromyalgia, insomnia, anxiety, depression - Past Surgical History Past Surgical History: Yes Neuro Surgical History: No Pertinent History Cardiac: No Pertinent History Respiratory: No Pertinent History Gastrointestinal: Appendectomy Genitourinary: No Pertinent History Musculoskeletal: No Pertinent History Female Surgical History: Tubal Ligation Other Surgical History: rhinoplasty - Social History Smoking Status: Current every day smoker How long have you smoked: 16 Exposure to second hand smoke: Yes Drug Use: other Patient Lives Alone: Yes - Female History Hx Last Menstrual Period: abnormal Hx Now: No - Nursing Vital Signs Nursing Vital Signs: Initial Vital Signs Temperature 97.3 F 07/22/23 17:12 Pulse Rate 87 07/22/23 17:12 Respiratory Rate 20 07/22/23 17:12 Blood Pressure 114/77 07/22/23 17:12 O2 Sat by Pulse Oximetry 99 07/22/23 17:12 Pain Scale Pain Intensity 3 - Physical Exam General Appearance: no apparent distress, alert Eye Exam: PERRL/EOMI Ears, Nose, Throat Exam: normal ENT inspection, TMs normal, pharynx normal, moist mucous membranes Neck Exam: normal inspection, non-tender, supple, full range of motion Respiratory Exam: rhonchi, wheezing Cardiovascular Exam: regular rate/rhythm, normal heart sounds Gastrointestinal/Abdomen Exam: soft, normal bowel sounds, No tenderness Back Exam: normal inspection, normal range of motion Extremity Exam: other (Swelling right hand fifth distal metacarpal with deformity and restricted range of motion at fifth metacarpophalangeal joint. Tenderness to palpation.) Neurologic Exam: alert, oriented x 3, cooperative, senior litigation paralegal II-XII nml as tested, nml cerebellar function Skin Exam: normal color SpO2 Interpretation: normal SpO2: 99 O2 Delivery: Room Air Ordered Tests: Active Orders 24 hr Category Date Time Status AMA [Release AMA] OM.NOW Care 07/22/23 23:05 Completed Clean Catch Urine Specimen STAT Care 07/22/23 22:27 Completed CHEST 1 VIEW (PORTABLE) Stat Exams 07/22/23 17:37 Completed HAND (MINIMUM 3 VIEWS) Stat Exams 07/22/23 17:37 Completed BLOOD CULTURE Stat Lab 07/22/23 19:40 Received CBC W DIFF Stat Lab 07/22/23 17:58 Completed CMP Stat Lab 07/22/23 17:58 Completed Lactic Acid Stat Lab 07/22/23 17:55 Completed Lactic Acid Stat Lab 07/22/23 20:00 Completed Lactic Acid Stat Lab 07/22/23 22:22 Completed PROCALCITONIN Stat Lab 07/22/23 19:40 Completed Respiratory Therapy Assessment DAILY RT 07/22/23 17:49 Completed Medication Summary Discontinued Medications Generic Name Dose Route Start Last Admin Trade Name Freq PRN Reason Stop Dose Admin Albuterol/Ipratropium 3 ml 07/22/23 17:37 07/22/23 17:47 Ipratropium/Albuterol Sulfate 3 Ml Ampul.Neb IH 07/22/23 17:38 3 ml STAT ONE Administration Albuterol/Ipratropium Confirm 07/22/23 17:42 Ipratropium/Albuterol Sulfate 3 Ml Ampul.Neb Administered 07/22/23 17:43 Dose 3 ml IH .STK-MED ONE Sodium Chloride 1,000 mls @ 999 mls/hr 07/22/23 18:47 07/22/23 20:41 Sodium Chloride 0.9% 1000 Ml IV 07/22/23 19:47 Infused .Q1H1M STA Infusion Sodium Chloride Confirm 07/22/23 19:33 Sodium Chloride 0.9% 1000 Ml Administered 07/22/23 19:34 Dose 1,000 mls @ ud .ROUTE .STK-MED ONE Ceftriaxone Sodium/Dextrose 2 g in 50 mls @ 100 mls/hr 07/22/23 20:33 07/22/23 21:34 Rocephin 2 Gm-D5w 50ml Bag IV 07/22/23 21:02 Infused STAT STA Infusion Azithromycin 500 mg in 250 mls @ 250 mls/hr 07/22/23 20:33 07/22/23 21:21 Zithromax 500 Mg/ 250 Ml Nacl Premix IV 07/22/23 21:32 Infused STAT STA Infusion Ceftriaxone Sodium/Dextrose Confirm 07/22/23 20:42 Rocephin 2 Gm-D5w 50ml Bag Administered 07/22/23 20:43 Dose 2 g in 50 mls @ ud IV .STK-MED ONE Sodium Chloride 1,000 mls @ 750 mls/hr 07/22/23 20:51 07/22/23 23:01 Sodium Chloride 0.9% 1000 Ml IV 07/22/23 22:10 Infused .Q1H20M STA Infusion Sodium Chloride Confirm 07/22/23 20:57 Sodium Chloride 0.9% 1000 Ml Administered 07/22/23 20:58 Dose 1,000 mls @ ud .ROUTE .STK-MED ONE Azithromycin Confirm 07/22/23 21:00 Zithromax 500 Mg/ 250 Ml Nacl Premix Administered 07/22/23 21:01 Dose 500 mg in 250 mls @ ud IV .STK-MED ONE Ondansetron HCl 4 mg 07/22/23 21:22 07/22/23 21:24 Ondansetron Hcl 4 Mg/2 Ml Vial IV 07/22/23 21:23 4 mg STAT ONE Administration Ondansetron HCl Confirm 07/22/23 21:23 Ondansetron Hcl 4 Mg/2 Ml Vial Administered 07/22/23 21:24 Dose 4 mg .ROUTE .STK-MED ONE Oseltamivir Phosphate 75 mg 07/22/23 20:08 07/22/23 20:17 Oseltamivir 75 Mg Cap PO 07/22/23 20:09 75 mg STAT ONE Administration Oseltamivir Phosphate Confirm 07/22/23 20:14 Oseltamivir 75 Mg Cap Administered 07/22/23 20:15 Dose 75 mg PO .STK-MED ONE Oxycodone/Acetaminophen 1 tab 07/22/23 20:08 07/22/23 20:17 Oxycodone Hcl/Apap 5 Mg/325 Mg Tablet PO 07/22/23 20:09 1 tab STAT ONE Administration Oxycodone/Acetaminophen Confirm 07/22/23 20:14 Oxycodone Hcl/Apap 5 Mg/325 Mg Tablet Administered 07/22/23 20:15 Dose 1 tab .ROUTE .STK-MED ONE Lab/Rad Data: Laboratory Result Diagrams 07/22/23 17:58 07/22/23 17:58 Laboratory Results 07/22/23 07/22/23 07/22/23 Range/Units 22:22 20:00 19:40 WBC (4.0-10.5) x10^3/uL RBC (4.1-5.4) x10^6/uL Hgb (12.0-16.0) g/dL Hct (35-47) % MCV (78-100) fL MCH (26-32) pg MCHC (32-36) g/dL RDW (11.5-14.0) % Plt Count (150-450) x10^3/uL MPV (7.5-11.0) fL Gran % (36.0-66.0) % Immature Gran % (Auto) (0.00-0.4) % Nucleat RBC Rel Count (0.00-0.1) % Eos # (Auto) (0-0.5) x10^3/uL Immature Gran # (Auto) (0.00-0.03) x10^3u/L Absolute Lymphs (auto) (1.0-4.6) x10^3/uL Absolute Monos (auto) (0.0-1.3) x10^3/uL Absolute Nucleated RBC (0.00-0.01) x10^3u/L Lymphocytes % (24.0-44.0) % Monocytes % (0.0-12.0) % Eosinophils % (0.00-5.0) % Basophils % (0.0-0.4) % Absolute Granulocytes (1.4-6.9) x10^3/uL Basophils # (0-0.4) x10^3/uL Sodium (137-145) mmol/L Potassium (3.5-5.1) mmol/L Chloride (98-107) mmol/L Carbon Dioxide (22-30) mmol/L Anion Gap (5-15) MEQ/L BUN (7-17) mg/dL Creatinine (0.52-1.04) mg/dL Estimated GFR ML/MIN Glucose (74-106) mg/dL Lactic Acid 7.9 H 6.8 H (0.4-2.0) Calcium (8.4-10.2) mg/dL Total Bilirubin (0.2-1.3) mg/dL AST (14-36) U/L ALT (0-35) U/L Alkaline Phosphatase (38-126) U/L Serum Total Protein (6.3-8.2) g/dL Albumin (3.5-5.0) g/dL Procalcitonin 0.216 H (0.030-0.080) ng/mL Influenza Type A Ag (NEGATIVE) Influenza Type B Ag (NEGATIVE) RSV (PCR) (NEGATIVE) SARS-CoV-2 (PCR) (NEGATIVE) 07/22/23 07/22/23 07/22/23 Range/Units 17:58 17:58 17:58 WBC 6.2 (4.0-10.5) x10^3/uL RBC 3.12 L (4.1-5.4) x10^6/uL Hgb 12.1 (12.0-16.0) g/dL Hct 35.1 (35-47) % MCV 112.5 H (78-100) fL MCH 38.8 H (26-32) pg MCHC 34.5 (32-36) g/dL RDW 16.7 H (11.5-14.0) % Plt Count 365 (150-450) x10^3/uL MPV 11.3 H (7.5-11.0) fL Gran % 68.8 H (36.0-66.0) % Immature Gran % (Auto) 0.2 (0.00-0.4) % Nucleat RBC Rel Count 0.0 (0.00-0.1) % Eos # (Auto) 0.01 (0-0.5) x10^3/uL Immature Gran # (Auto) 0.01 (0.00-0.03) x10^3u/L Absolute Lymphs (auto) 1.44 (1.0-4.6) x10^3/uL Absolute Monos (auto) 0.45 (0.0-1.3) x10^3/uL Absolute Nucleated RBC 0.00 (0.00-0.01) x10^3u/L Lymphocytes % 23.2 L (24.0-44.0) % Monocytes % 7.3 (0.0-12.0) % Eosinophils % 0.2 (0.00-5.0) % Basophils % 0.3 (0.0-0.4) % Absolute Granulocytes 4.27 (1.4-6.9) x10^3/uL Basophils # 0.02 (0-0.4) x10^3/uL Sodium 136 L (137-145) mmol/L Potassium 3.2 L (3.5-5.1) mmol/L Chloride 98 (98-107) mmol/L Carbon Dioxide 32 H (22-30) mmol/L Anion Gap 9.5 (5-15) MEQ/L BUN < 2 L (7-17) mg/dL Creatinine 0.38 L (0.52-1.04) mg/dL Estimated GFR 128.2 ML/MIN Glucose 91 (74-106) mg/dL Lactic Acid (0.4-2.0) Calcium 8.0 L (8.4-10.2) mg/dL Total Bilirubin 1.10 (0.2-1.3) mg/dL AST 149 H (14-36) U/L ALT 26 (0-35) U/L Alkaline Phosphatase 263 H (38-126) U/L Serum Total Protein 6.4 (6.3-8.2) g/dL Albumin 3.3 L (3.5-5.0) g/dL Procalcitonin (0.030-0.080) ng/mL Influenza Type A Ag POSITIVE (NEGATIVE) Influenza Type B Ag NEGATIVE (NEGATIVE) RSV (PCR) NEGATIVE (NEGATIVE) SARS-CoV-2 (PCR) NEGATIVE (NEGATIVE) 07/22/23 Range/Units 17:55 WBC (4.0-10.5) x10^3/uL RBC (4.1-5.4) x10^6/uL Hgb (12.0-16.0) g/dL Hct (35-47) % MCV (78-100) fL MCH (26-32) pg MCHC (32-36) g/dL RDW (11.5-14.0) % Plt Count (150-450) x10^3/uL MPV (7.5-11.0) fL Gran % (36.0-66.0) % Immature Gran % (Auto) (0.00-0.4) % Nucleat RBC Rel Count (0.00-0.1) % Eos # (Auto) (0-0.5) x10^3/uL Immature Gran # (Auto) (0.00-0.03) x10^3u/L Absolute Lymphs (auto) (1.0-4.6) x10^3/uL Absolute Monos (auto) (0.0-1.3) x10^3/uL Absolute Nucleated RBC (0.00-0.01) x10^3u/L Lymphocytes % (24.0-44.0) % Monocytes % (0.0-12.0) % Eosinophils % (0.00-5.0) % Basophils % (0.0-0.4) % Absolute Granulocytes (1.4-6.9) x10^3/uL Basophils # (0-0.4) x10^3/uL Sodium (137-145) mmol/L Potassium (3.5-5.1) mmol/L Chloride (98-107) mmol/L Carbon Dioxide (22-30) mmol/L Anion Gap (5-15) MEQ/L BUN (7-17) mg/dL Creatinine (0.52-1.04) mg/dL Estimated GFR ML/MIN Glucose (74-106) mg/dL Lactic Acid 4.4 H (0.4-2.0) Calcium (8.4-10.2) mg/dL Total Bilirubin (0.2-1.3) mg/dL AST (14-36) U/L ALT (0-35) U/L Alkaline Phosphatase (38-126) U/L Serum Total Protein (6.3-8.2) g/dL Albumin (3.5-5.0) g/dL Procalcitonin (0.030-0.080) ng/mL Influenza Type A Ag (NEGATIVE) Influenza Type B Ag (NEGATIVE) RSV (PCR) (NEGATIVE) SARS-CoV-2 (PCR) (NEGATIVE) - Progress Progress: improved, re-examined Air Movement: good Progress Note: 07/22/23 21:05 43 years old is evaluated for cough congestion for the last couple of weeks with lately worsening without any difficulty breathing. Oxygen saturation around 96% on room air. She has a positive sick contact. She is given neb treatment, reevaluation feeling much better. Workup showed normal white count, chemistry showed elevated lactate of 4 with a procalcitonin 1.2. Chest x-ray negative for any acute cardiopulmonary findings reviewed by me, official report is pending. Patient also has influenza positive and is given Tamiflu. While in the ER recheck lactate is 6.0. Patient received fluid bolus and I have given a dose of Rocephin and Zithromax as well, as I believe patient is developing superimposed bacterial infection. I have recommended admission but patient does not want to stay in the hospital at all. X-rays of right hand showed angulated fracture distal right fifth metacarpal. Placed in ulnar gutter and recommended outpatient follow-up with Dr. Tomas who is the primary orthopedist who did intervention earlier. 07/22/23 22:56 Repeat lactate is 7.9. Patient clinically does not look toxic. I do not know the exact cause of elevation of lactate. I believe patient needs admission and further evaluation but she does not want to stay in the hospital at all. I have discussed the risk of going home which would not only delay the diagnosis but worsening of the condition including but she is adamant about leaving. Her mom was also involved in her decision making. Although patient is leaving AMA but I would send prescriptions to the pharmacy and recommended outpatient follow-up. Blood Culture(s) Obtained: Yes Antibiotics given: Yes Counseled pt/family regarding: lab results, diagnosis, need for follow-up, rad results, smoking cessation Medical Desision Making - Independent Historian Additional History obtained from: Mother - Diagnostic Testing Diagnostic test were ordered, analyzed, and reviewed by me: Yes Radiological Interpretation: Interpreted by me, Reviewed by me - Departure Departure Disposition: AMA Clinical Impression: Influenza, Bronchitis, Fracture of fifth metacarpal bone of right hand, Sepsis, Lactic acidosis Condition: Stable Critical Care Time: No Referrals: DOCTOR,NO FAMILY [Primary Care Provider] - Follow up with PCP 2 days MERE TOMAS [NON-STAFF PHY W/O PRIVILEGES] - Follow up/PCP as directed (Call for appointment for reevaluation 2 days) Instructions: Flu, Adult (DC), Cough, Adult (DC) Additional Instructions: Use inhaler as needed. Take [id number] cough medication. Tylenol/ibuprofen as needed for symptomatic relief. Follow-up with your primary care and orthopedics for reevaluation. Return to ER for worsening cough or if having difficulty breathing, persistent high-grade fever chills etc. Prescriptions: Albuterol Sulfate [Albuterol Sulfate Hfa] 8.5 gm IH Q6H PRN 7 Days #1 inh PRN Reason: Cough Levofloxacin [Levaquin 500 MG Tablet] 500 mg PO DAILY #7 tablet Oseltamivir 75 mg [Tamiflu 75MG Capsule] 75 mg PO BID #10 cap
[2023-07-22 18:00] LABS: Absolute Neutrophil Ct (ANC) 4.27 x10^3/uL (1.4-6.9); BASOPHIL % 0.3 % (0.0-0.4); Basophil (Absolute #) 0.02 x10^3/uL (0-0.4); Eosinophil % 0.2 % (0.00-5.0); Eosinophil (Absolute #) 0.01 x10^3/uL (0-0.5); Hematocrit 35.1 % (35-47); Hemoglobin 12.1 g/dL (12.0-16.0); IMMATURE GRAN # 0.01 x10^3u/L (0.00-0.03); IMMATURE GRAN % 0.2 % (0.00-0.4); Lymphocyte (Absolute #) 1.44 x10^3/uL (1.0-4.6); Lymphocytes % 23.2 % (24.0-44.0); Mean Cell Volume 112.5 fL (78-100); Mean Corpuscular Hemoglobin 38.8 pg (26-32); Mean Corpuscular Hgb Concent. 34.5 g/dL (32-36); Mean Platelet Volume 11.3 fL (7.5-11.0); Monocyte (Absolute #) 0.45 x10^3/uL (0.0-1.3); Monocytes % 7.3 % (0.0-12.0); Neutrophil % 68.8 % (36.0-66.0); Platelet Count 365 x10^3/uL (150-450); Red Blood Count 3.12 x10^6/uL (4.1-5.4); Red Cell Distribution Width 16.7 % (11.5-14.0); White Blood Count 6.2 x10^3/uL (4.0-10.5)
[2023-07-22 18:16] LABS: ALBUMIN 3.3 g/dL (3.5-5.0); ALKALINE PHOSPHATASE 263 U/L (38-126); ANION GAP 9.5 MEQ/L (5-15); CHLORIDE 98 mmol/L (98-107); Carbon Dioxide 32 mmol/L (22-30); Creatinine 1 0.38 mg/dL (0.52-1.04); EST GLOMERULAR FILTRATION RATE 128.2 ML/MIN; Glucose 91 mg/dL (74-106); Potassium 3.2 mmol/L (3.5-5.1); SGOT/AST 149 U/L (14-36); SGPT/ALT 26 U/L (0-35); SODIUM 136 mmol/L (137-145); Total Protein 6.4 g/dL (6.3-8.2)
[2023-07-22 18:17] LABS: BLOOD UREA NITROGEN < 2 mg/dL (7-17)
[2023-07-22 18:38] LABS: INFLUENZA B NEGATIVE (NEGATIVE); RESPIRATORY SYNCTIAL VIRUS NEGATIVE (NEGATIVE); SARS-CoV-2 Xpert Express NEGATIVE (NEGATIVE)
[2023-07-22 18:40] LABS: INFLUENZA A POSITIVE (NEGATIVE)
[2023-07-22] MEDS ORDERED: Sodium Chloride 0.9% 1000 ML 1,000 ML IV STA ×2 (18:47→20:51)
[2023-07-22] MEDS ORDERED: Sodium Chloride 0.9% 1000 ML 1,000 ML ONE ×2 (19:33→20:57)
[2023-07-22] MEDS ORDERED: PERCOCET TABLET 5/325MG PO ONE (20:08)
[2023-07-22] MEDS ORDERED: Tamiflu 75MG Capsule PO ONE ×2 (20:08→20:14)
[2023-07-22 20:09] VITALS: O2SAT 99
[2023-07-22] MEDS ORDERED: PERCOCET TABLET 5/325MG ONE (20:14)
[2023-07-22] MEDS ORDERED: ROCEPHIN 2 Gm-D5w 50ML BAG** 2 G/50 ML IVPB IV STA (20:33)
[2023-07-22] MEDS ORDERED: Zithromax 500 MG/ 250 ML NaCl Premix 500 MG/250 ML IVPB IV STA (20:33)
[2023-07-22] MEDS ORDERED: ROCEPHIN 2 Gm-D5w 50ML BAG** 2 G/50 ML IVPB IV ONE (20:42)
--- NOTE | 2023-07-22 20:48 | XRAY ---
Indication: Swelling. Comparison: None 3 view right hand demonstrates mildly angulated fracture distal shaft 5th metacarpal with soft tissue swelling. No other bony, articular, or soft tissue abnormalities.
--- NOTE | 2023-07-22 20:50 | XRAY ---
Indication: Cough. Comparison: October 21, 2020. Portable apical lordotic chest is now rotated and less inflated. No focal infiltrate, consolidation, or large effusion. Heart not enlarged. Bony thorax intact. Impression: Nonacute chest.
[2023-07-22] MEDS ORDERED: Zithromax 500 MG/ 250 ML NaCl Premix 500 MG/250 ML IVPB IV ONE (21:00)
[2023-07-22] MEDS ORDERED: Zofran 4 MG/2 ML VIAL IV ONE (21:22)
[2023-07-22] MEDS ORDERED: Zofran 4 MG/2 ML VIAL ONE (21:23)
[2023-07-22 23:03] VITALS: BP 127/66; PULSE 81; RESP 18
== END 2023-07-22 23:20 | disposition left against medical advice (07) ==
LOC: ED 15:23
DX: A41.89 Other specified sepsis (principal); J10.1 Influenza due to other identified influenza virus with other respiratory manifestations; J20.8 Acute bronchitis due to other specified organisms; E87.20 Acidosis, unspecified; S62.326A Displaced fracture of shaft of fifth metacarpal bone, right hand, initial encounter for closed fracture; R05.1 Acute cough; Z79.899 Other long term (current) drug therapy; Z28.310 Unvaccinated for COVID-19; Z72.0 Tobacco use
CPT/HCPCS: 0241U; 36000; 36415; 71045; 73130; 80053; 83605; 84145; 85025; 87040; 94640; 96360; 96361; 96365; 96367; 96374; 99285; J0456; J0696; J2405; A9270-GY

== ENCOUNTER 2023-07-23 08:40 | Observation (INO) | payer OTHER ==
[2023-07-23] MEDS ORDERED: Sodium Chloride 0.9% 1000 ML 1,000 ML IV STA ×4 (08:46→18:11)
[2023-07-23] MEDS ORDERED: Zofran 4 MG/2 ML VIAL ONE (08:46)
[2023-07-23] MEDS ORDERED: Sodium Chloride 0.9% 1000 ML 1,000 ML ONE ×2 (08:46→22:01)
[2023-07-23] MEDS ORDERED: Zofran 4 MG/2 ML VIAL IV ONE (08:46)
[2023-07-23 09:12] LABS: Absolute Neutrophil Ct (ANC) 3.03 x10^3/uL (1.4-6.9); BASOPHIL % 0.6 % (0.0-0.4); Basophil (Absolute #) 0.03 x10^3/uL (0-0.4); Eosinophil % 0.4 % (0.00-5.0); Eosinophil (Absolute #) 0.02 x10^3/uL (0-0.5); Hematocrit 31.4 % (35-47); Hemoglobin 10.6 g/dL (12.0-16.0); IMMATURE GRAN # 0.02 x10^3u/L (0.00-0.03); IMMATURE GRAN % 0.4 % (0.00-0.4); Lymphocytes % 29.9 % (24.0-44.0); Mean Cell Volume 114.2 fL (78-100); Mean Corpuscular Hemoglobin 38.5 pg (26-32); Mean Corpuscular Hgb Concent. 33.8 g/dL (32-36); Mean Platelet Volume 11.7 fL (7.5-11.0); Monocyte (Absolute #) 0.41 x10^3/uL (0.0-1.3); Monocytes % 8.2 % (0.0-12.0); Neutrophil % 60.5 % (36.0-66.0); Platelet Count 344 x10^3/uL (150-450); Red Blood Count 2.75 x10^6/uL (4.1-5.4); Red Cell Distribution Width 17.2 % (11.5-14.0)
[2023-07-23] MEDS ORDERED: MAGNESIUM SULF 2 G/50 ML BAG 2 GM/50 ML PIGGYBACK IV ONE (09:12)
--- NOTE | 2023-07-23 09:17 | ERPHSYRPT ---
- History of Present Illness Time Seen by Provider: 07/23/23 09:00 Source: patient, old records Exam Limitations: no limitations Patient Subjective Stated Complaint: PT HERE FOR FEELING NUMB FROM NOSE TO LEGS FOR 2 DAYS NOW, SHE STATES IT IS CONSTANT, SHE WAS SEEN IN ER YESTERDAY AND DX WITH SEPSIS,FLU A AND LACTIC ACIDOSIS, SHE SIGNED OUT AMA. Triage Nursing Assessment: PT ARRIVED PER AMBLUANCE, ALERT, VOMITED X1, SKIN WARM.DRY AND PALE, ABD SOFT, MOVES ALL EXT WELL, NO EDEMA NOTED Physician History: 43yo f seen in ED 07/22/23 and dx w/ sepsis, Flu A, left AMA from ED. Pt returns today w/ complaints of "numbness from her nose down to her feet." Pt states the numbness started 2-3d ago, states it is constant, reports associated weakness but states she is "always weak." States she slid out of bed yesterday but denies hitting head. Pt denies any FRANCOIS, blurry vision, recent falls/trauma, denies cp, soa; does endorse some n/v, poor PO intake x 1wk, hand pain. Time of Onset/Last Time Seen Normal: 2d Timing/Duration: day(s) (2) Severity: mild Character of Deficits: altered sensation, general (difuse) (entire body below nose "feels numb") Deficits: weak Baseline/Normal Cognition: alert oriented x 3 Current Cognition: alert oriented x 3 Baseline Gait: walks w/o assistance Associated Symptoms: nausea, vomiting, weakness Allergies/Adverse Reactions: azithromycin [From Zithromax] Adverse Reaction (Intermediate, Verified 07/23/23 08:43) Vomiting steroids Allergy (Severe, Uncoded 07/23/23 08:43) Swelling Home Medications: Gabapentin 1,200 mg PO HS 06/27/22 [History] Hydrocodone/Acetaminophen [Hydrocodone-Acetamin 5-325 mg] 1 tab PO Q6HPRN PRN MDD 4 07/23/23 [History] Hx Tetanus, Diphtheria Vaccination/Date Given: Yes Hx Influenza Vaccination/Date Given: No Hx Pneumococcal Vaccination/Date Given: No Immunizations Up to Date: Yes Travel Risk - International Travel Have you traveled outside of the country in past 3 weeks: No - Coronavirus Screening Are you exhibiting any of the following symptoms?: Yes Symptoms: Cough: New Onset, Vomiting/Diarrhea Close contact with a COVID-19 positive Pt in past 14-21 Days: No - Vaccine Status Have you recieved a Covid-19 vaccination: No - Review of Systems Constitutional: Weakness Respiratory: Cough Abdominal/Gastrointestinal: Nausea, Vomiting Genitourinary Symptoms: No Symptoms Skin: No Symptoms Neurological: Sensory Changes (see HPI) Psychological: No Symptoms - Past Medical History Pertinent Past Medical History: Yes Neurological History: Peripheral Neuropathy, Other ENT History: No Pertinent History Cardiac History: No Pertinent History Respiratory History: No Pertinent History Endocrine Medical History: Other Musculoskeletal History: Fractures, Other GI Medical History: No Pertinent History History: No Pertinent History Psycho-Social History: Anxiety Female Reproductive Disorders: No Pertinent History Other Medical History: acute kidney failure, broken R pinky toe, tubal ligation, appendectomy, rhinoplasty, B Carpal Tunnel Syndrome, B wrist pain, CRPS (lower limb), fibromyalgia, insomnia, anxiety, depression - Past Surgical History Past Surgical History: Yes Neuro Surgical History: No Pertinent History Cardiac: No Pertinent History Respiratory: No Pertinent History Gastrointestinal: Appendectomy Genitourinary: No Pertinent History Musculoskeletal: No Pertinent History Female Surgical History: Tubal Ligation Other Surgical History: rhinoplasty - Social History Smoking Status: Current every day smoker How long have you smoked: 16 Exposure to second hand smoke: Yes Drug Use: other Patient Lives Alone: Yes - Female History Hx Last Menstrual Period: UNSURE Hx Now: No - Nursing Vital Signs Nursing Vital Signs: Initial Vital Signs Blood Pressure 141/102 07/23/23 08:44 O2 Sat by Pulse Oximetry 100 07/23/23 08:44 Pain Scale Pain Intensity 4 - [place] Coma Scale Best Eye Response ([place]): (4) open spontaneously Best Verbal Response ([place]): (5) oriented Best Motor Response ([place]): (6) obeys commands [place] Total: 15 - Physical Exam General Appearance: no apparent distress, alert Eye Exam: bilateral eye: normal inspection, PERRL, other (horizontal nystagmus, ) Ears, Nose, Throat Exam: normal ENT inspection Neck Exam: normal inspection, non-tender, supple, full range of motion Respiratory: normal breath sounds, airway intact Cardiovascular: regular rate/rhythm, normal heart sounds, normal peripheral pulses, capillary refill <2 sec Rectal Exam: deferred Back Exam: normal inspection Extremity Exam: normal inspection Mental Status: alert, oriented x 3, 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 Exam: normal hearing, normal speech, PERRL Coordination/Gait: normal finger to nose Motor/Sensory: no motor deficit, no pronator drift, negative Babinski's sign, sensory deficit (reports diminished sensations b/l in UE and LEs) SpO2 Interpretation: normal SpO2: 100 O2 Delivery: Room Air - Course EKG Interpreted by Me: RATE (73), Sinus Rhythm, NORMAL AXIS, prolonged QT interval (qtc 523), NORMAL ST-T Ordered Tests: Active Orders 24 hr Category Date Time Status EKG-ER Only STAT Care 07/23/23 09:00 Active HEAD WITHOUT CONTRAST [CT] Stat Exams 07/23/23 09:29 Completed NECK WO CONTRAST [CT] Stat Exams 07/23/23 09:29 Completed CBC W DIFF Stat Lab 07/23/23 09:05 Completed CMP Stat Lab 07/23/23 09:05 Completed Lactic Acid Stat Lab 07/23/23 09:05 Completed Lactic Acid Stat Lab 07/23/23 11:14 Received TROPONIN Q4H Lab 07/23/23 09:05 Completed TROPONIN Q4H Lab 07/23/23 13:15 Ordered TROPONIN Q4H Lab 07/23/23 17:15 Ordered UA W/RFX UR CULTURE Stat Lab 07/23/23 09:43 Ordered Urine Triage Profile Stat Lab 07/23/23 09:09 Ordered VBG [VENOUS BLOOD GAS] Stat Lab 07/23/23 09:49 Completed Transfer Order Routine Transfer 07/23/23 Ordered Medication Summary Generic Name Dose Route Start Last Admin Trade Name Freq PRN Reason Stop Dose Admin Sodium Chloride 1,000 mls @ 100 mls/hr 07/23/23 10:30 07/23/23 10:29 Sodium Chloride 0.9% 1000 Ml IV 08/22/23 10:29 100 mls/hr .Q10H JULIANNA Administration Discontinued Medications Generic Name Dose Route Start Last Admin Trade Name Freq PRN Reason Stop Dose Admin Sodium Chloride Confirm 07/23/23 08:46 Sodium Chloride 0.9% 1000 Ml Administered 07/23/23 08:47 Dose 1,000 mls @ ud .ROUTE .STK-MED ONE Sodium Chloride 1,000 mls @ 999 mls/hr 07/23/23 08:46 07/23/23 10:36 Sodium Chloride 0.9% 1000 Ml IV 07/23/23 09:46 Infused .Q1H1M STA Infusion Magnesium Sulfate/Water 2 gm in 50 mls @ 100 mls/hr 07/23/23 09:12 07/23/23 10:37 Magnesium Sulf 2 G/50 Ml Bag IV 07/23/23 09:41 Infused ONCE ONE Infusion Magnesium Sulfate/Dextrose Confirm 07/23/23 09:20 Magnesium 1 Gm / 100 Ml D5w Administered 07/23/23 09:21 Dose 200 mls @ ud IV .STK-MED ONE Morphine Sulfate 1 mg 07/23/23 09:32 07/23/23 11:01 Morphine Sulfate 2 Mg/Ml Inj IV 07/23/23 09:33 1 mg STAT ONE Administration Morphine Sulfate Confirm 07/23/23 10:30 Morphine Sulfate 2 Mg/Ml Inj Administered 07/23/23 10:31 Dose 2 mg .ROUTE .STK-MED ONE Ondansetron HCl Confirm 07/23/23 08:46 Ondansetron Hcl 4 Mg/2 Ml Vial Administered 07/23/23 08:47 Dose 4 mg .ROUTE .STK-MED ONE Ondansetron HCl 4 mg 07/23/23 08:46 07/23/23 08:50 Ondansetron Hcl 4 Mg/2 Ml Vial IV 07/23/23 08:47 4 mg STAT ONE Administration Lab/Rad Data: Laboratory Result Diagrams 07/23/23 09:05 07/23/23 09:05 Laboratory Results 07/23/23 07/23/23 07/23/23 Range/Units 09:49 09:05 09:05 WBC (4.0-10.5) x10^3/uL RBC (4.1-5.4) x10^6/uL Hgb (12.0-16.0) g/dL Hct (35-47) % MCV (78-100) fL MCH (26-32) pg MCHC (32-36) g/dL RDW (11.5-14.0) % Plt Count (150-450) x10^3/uL MPV (7.5-11.0) fL Gran % (36.0-66.0) % Immature Gran % (Auto) (0.00-0.4) % Nucleat RBC Rel Count (0.00-0.1) % Eos # (Auto) (0-0.5) x10^3/uL Immature Gran # (Auto) (0.00-0.03) x10^3u/L Absolute Lymphs (auto) (1.0-4.6) x10^3/uL Absolute Monos (auto) (0.0-1.3) x10^3/uL Absolute Nucleated RBC (0.00-0.01) x10^3u/L Lymphocytes % (24.0-44.0) % Monocytes % (0.0-12.0) % Eosinophils % (0.00-5.0) % Basophils % (0.0-0.4) % Absolute Granulocytes (1.4-6.9) x10^3/uL Basophils # (0-0.4) x10^3/uL pO2/FiO2 Ratio 21.0 % VBG pH 7.49 H (7.32-7.42) VBG pCO2 at Pat Temp 32 L (42-55) mm/Hg VBG pO2 at Pat Temp 52 H (25-40) mm/Hg VBG HCO3 24.4 (22-28) meq/L VBG O2 Sat ([place]) 76.7 L (95-100) VBG Base Excess 1.5 (-2.0-2.0) VBG Hemoglobin 11.6 VBG Carboxyhemoglobin 5.2 (0.0-6.9) % T HGB POC Potassium 3.5 (3.5-5.1) Sodium 139 (137-145) mmol/L Potassium 3.4 L (3.5-5.1) mmol/L Chloride 104 (98-107) mmol/L Carbon Dioxide 22 (22-30) mmol/L Anion Gap 16.3 H (5-15) MEQ/L BUN < 2 L (7-17) mg/dL Creatinine 0.37 L (0.52-1.04) mg/dL Estimated GFR 129.1 ML/MIN Glucose 81 (74-106) mg/dL Lactic Acid (0.4-2.0) Calcium 7.3 L (8.4-10.2) mg/dL Total Bilirubin 0.60 (0.2-1.3) mg/dL AST 111 H (14-36) U/L ALT 33 (0-35) U/L Alkaline Phosphatase 198 H (38-126) U/L Troponin I < 0.012 (0.000-0.034) ng/mL Serum Total Protein 5.6 L (6.3-8.2) g/dL Albumin 2.8 L (3.5-5.0) g/dL 07/23/23 07/23/23 Range/Units 09:05 09:05 WBC 5.0 (4.0-10.5) x10^3/uL RBC 2.75 L (4.1-5.4) x10^6/uL Hgb 10.6 L (12.0-16.0) g/dL Hct 31.4 L (35-47) % MCV 114.2 H (78-100) fL MCH 38.5 H (26-32) pg MCHC 33.8 (32-36) g/dL RDW 17.2 H (11.5-14.0) % Plt Count 344 (150-450) x10^3/uL MPV 11.7 H (7.5-11.0) fL Gran % 60.5 (36.0-66.0) % Immature Gran % (Auto) 0.4 (0.00-0.4) % Nucleat RBC Rel Count 0.0 (0.00-0.1) % Eos # (Auto) 0.02 (0-0.5) x10^3/uL Immature Gran # (Auto) 0.02 (0.00-0.03) x10^3u/L Absolute Lymphs (auto) 1.50 (1.0-4.6) x10^3/uL Absolute Monos (auto) 0.41 (0.0-1.3) x10^3/uL Absolute Nucleated RBC 0.00 (0.00-0.01) x10^3u/L Lymphocytes % 29.9 (24.0-44.0) % Monocytes % 8.2 (0.0-12.0) % Eosinophils % 0.4 (0.00-5.0) % Basophils % 0.6 (0.0-0.4) % Absolute Granulocytes 3.03 (1.4-6.9) x10^3/uL Basophils # 0.03 (0-0.4) x10^3/uL pO2/FiO2 Ratio % VBG pH (7.32-7.42) VBG pCO2 at Pat Temp (42-55) mm/Hg VBG pO2 at Pat Temp (25-40) mm/Hg VBG HCO3 (22-28) meq/L VBG O2 Sat ([place]) (95-100) VBG Base Excess (-2.0-2.0) VBG Hemoglobin VBG Carboxyhemoglobin (0.0-6.9) % T HGB POC Potassium (3.5-5.1) Sodium (137-145) mmol/L Potassium (3.5-5.1) mmol/L Chloride (98-107) mmol/L Carbon Dioxide (22-30) mmol/L Anion Gap (5-15) MEQ/L BUN (7-17) mg/dL Creatinine (0.52-1.04) mg/dL Estimated GFR ML/MIN Glucose (74-106) mg/dL Lactic Acid 8.9 H (0.4-2.0) Calcium (8.4-10.2) mg/dL Total Bilirubin (0.2-1.3) mg/dL AST (14-36) U/L ALT (0-35) U/L Alkaline Phosphatase (38-126) U/L Troponin I (0.000-0.034) ng/mL Serum Total Protein (6.3-8.2) g/dL Albumin (3.5-5.0) g/dL - Progress Progress: unchanged Progress Note: 07/23/23 09:29 pt nauseous on presentation, given zofran started 1L NS bolus IV 2G Mg ordered in setting of prolonged QT and recent mild hypomagnesimia labs pending CT head/c spine pending in setting of numbness, no trauma reported 1mg morphine ordered for reported hand pain - chronic 2/2 recent fx 07/23/23 09:44 Lactate 8.9 - consistent w/ lactic acidosis, likely 2/2 poor PO intake vs influenza continue IV fluid hydration 07/23/23 11:05 Plan to admit to obs for lactic acidosis, influenza A discussed admission w/ Dr Cummings who agrees 07/23/23 11:07 CT head/cspine negative for acute findings Discussed with Dr.: Other (Dr Cummings) Will see patient in: hospital (observation) Counseled pt/family regarding: lab results, diagnosis, rad results - Departure Departure Disposition: Observation Clinical Impression: Lactic acidosis, Influenza A Condition: Stable Critical Care Time: No Referrals: DOCTOR,NO FAMILY [Primary Care Provider] - Follow up/PCP as directed
[2023-07-23] MEDS ORDERED: Magnesium 1 Gm / 100 Ml D5W*** 200 ML IV ONE (09:20)
[2023-07-23 09:27] LABS: ALBUMIN 2.8 g/dL (3.5-5.0); ALKALINE PHOSPHATASE 198 U/L (38-126); ANION GAP 16.3 MEQ/L (5-15); CHLORIDE 104 mmol/L (98-107); Calcium 7.3 mg/dL (8.4-10.2); Carbon Dioxide 22 mmol/L (22-30); Creatinine 1 0.37 mg/dL (0.52-1.04); EST GLOMERULAR FILTRATION RATE 129.1 ML/MIN; Glucose 81 mg/dL (74-106); Potassium 3.4 mmol/L (3.5-5.1); SGOT/AST 111 U/L (14-36); SODIUM 139 mmol/L (137-145); Total Protein 5.6 g/dL (6.3-8.2)
[2023-07-23] MEDS ORDERED: MORPHINE SULFATE 2 MG INJ IV ONE (09:32)
[2023-07-23 09:34] LABS: BLOOD UREA NITROGEN < 2 mg/dL (7-17); SGPT/ALT 33 U/L (0-35)
[2023-07-23 09:53] LABS: VBG BASE EXCESS 1.5 (-2.0-2.0); VBG CARBOXYHEMOGLOBIN 5.2 % T HGB (0.0-6.9); VBG HCO3- 24.4 meq/L (22-28); VBG HEMOGLOBIN 11.6; VBG O2 SATURATION 76.7 (95-100); VBG POTASSIUM 3.5 (3.5-5.1); VBG pH 7.49 (7.32-7.42)
--- NOTE | 2023-07-23 10:17 | XRAY ---
CLINICAL HISTORY:numbness COMPARISON:None. TECHNIQUE:An axial non-contrast CT scan of the brain was performed from the skull base to the high parietal region. Sagittal and coronal reconstruction images were obtained. FINDINGS: The visualized brain parenchyma shows a normal appearance. Canela-white matter differentiation is maintained. No midline shifts or deformity. No intracerebral or extra axial hematoma. Normal size and configuration of the cerebral ventricles. Normal CT appearance of the posterior fossa structures namely the cerebellar hemispheres, brainstem, and cerebellar peduncles. The cerebello-pontine angles are clear. The pituitary gland, the pineal gland, and the optic chiasm are unremarkable. No definite calvarium fractures. Left maxillary, left sphenoidal, and bilateral frontal sinusitis are noted, with evidence of bilateral medial maxillary antrostomies for clinical correlation. Minimal opacification of left mastoid air cells. IMPRESSION: 1. Unremarkable study with no evidence of intraxial or extraxial hematomas, and no evidence of cortical territorial ischemic infarcts by CT criteria. 2. Left maxillary, sphenoidal, and bilateral frontal sinusitis. Electronically Signed by: Sky Garcia MD. (07/23/2023 10:13:38 EST)
--- NOTE | 2023-07-23 10:25 | XRAY ---
CLINICAL HISTORY:numbness COMPARISON:None. TECHNIQUE:Thin axial CT of the cervical spine was performed with sagittal and coronal reconstructions without contrast. FINDINGS: Straightening of the cervical spine possibly due to neck muscle spasm. Upper thoracic scoliotic list with convexity to the left side. No evidence of fractures or dislocations. The vertebral bodies are normal in height. No lytic or sclerotic bone lesion. The craniovertebral measures are unremarkable. Normal atlanto-occiptal and atlanto-axial articulations. Normal disc heights are noted. Level by Level analysis: C2-C3: No central canal or neuroforaminal stenosis. C3-C4: No central canal or neuroforaminal stenosis. C4-C5: No central canal or neuroforaminal stenosis. C5-C6: There is minimal posterior disc protrusion. There is no central canal or neuroforaminal stenosis. C6-C7: No central canal or neuroforaminal stenosis. No paraspinal masses. Visualized chest cuts reveal a tiny calcified left hilar node and a tiny left pulmonary calcified nodule (granuloma). IMPRESSION: 1. No acute finding. 2. Straightening of the cervical spine possibly due to neck muscle spasm. 3. Upper thoracic levoscoliosis. 4. C5-C6 posterior disc protrusion without significant neural compromise. Electronically Signed by: Sky Garcia MD. (07/23/2023 10:20:22 EST)
[2023-07-23] MEDS ORDERED: MORPHINE SULFATE 2 MG INJ ONE (10:30)
[2023-07-23] MEDS ORDERED: Sodium Chloride 0.9% 1000 ML 1,000 ML IV SCH (10:30)
[2023-07-23] MEDS ORDERED: Klor Con PO ONE (11:32)
--- NOTE | 2023-07-23 11:50 | PCM.HP ---
History of Present Illness - Chief Complaint Chief Complaint: INFLUENZA A Date: 07/23/23 History of Present Illness: is a 43 year old female with PMHX of neuropathy, fibromyalgia, and most recently over 1 month ago right hand surgery in which she states she pulled the pin out of her hand because she could not make her ortho appointment. She complains of hand pain since punching a wall and breaking her hand for which she needed surgery. She did see CUCO Acosta at our ortho clinic then had surgery in [facility]. She was seen in our ER yesterday and left AMA. Pt returns today w/ complaints of "numbness from her nose down to her feet." Pt states the numbness started 2-3d ago, states it is constant, reports associated weakness but states she is "always weak." She reports N/V for 3 weeks and has not ate anything for 3 weeks. States she slid out of bed yesterday but denies hitting head and no LOC. She c/o watery stools, cough, and sore throat. In ER Lactic Acid was found to be 8.9, + flu A, and low K+. In ER she was given 1 L IV fluid bolus and IV fluids, morphine, magnesium, and zofran. Mg+ level not checked in ER, when on unit this was drawn and found to be low despite ER replacement. Will continue IV fluids and replace potassium and magnesium. She denies, CP, SOB, abd. pain, N/V/D. - Review of Systems Constitutional: Weakness, No Fever, No Chills Eyes: No Symptoms Ears, Nose, & Throat: No Symptoms, Throat Pain Respiratory: Cough, No Short Of Breath Cardiac: No Chest Pain, No Edema, No Syncope Abdominal/Gastrointestinal: Diarrhea, No Abdominal Pain, No Nausea, No Vomiting Genitourinary Symptoms: No Dysuria Musculoskeletal: Joint Pain (right outer aspect of hand pain from recent surgery 1 month ago. ), No Back Pain, No Neck Pain Skin: No Rash Neurological: Sensory Changes (reports numbness from nose down), No Dizziness, No Focal Weakness Psychological: No Symptoms Endocrine: No Symptoms Hematologic/Lymphatic: No Symptoms Immunological/Allergic: No Symptoms Medications & Allergies Home Medications: Home Medication List Gabapentin 1,200 mg PO HS 06/27/22 [History Confirmed 07/23/23] Allergies/Adverse Reactions: Allergies Allergy/AdvReac Type Severity Reaction Status Date / Time azithromycin [From Zithromax] AdvReac Intermediate Vomiting Verified 07/23/23 08:43 steroids Allergy Severe Swelling Uncoded 07/23/23 08:43 - Past Medical History Past Medical History: Yes Neurological History: Peripheral Neuropathy, Other ENT History: No Pertinent History Cardiac History: No Pertinent History Respiratory History: No Pertinent History Endocrine Medical History: Other Musculoskelatal History: Fractures, Other GI Medical History: No Pertinent History History: No Pertinent History Pyscho-Social History: Anxiety Reproductive Disorders: No Pertinent History Comment: acute kidney failure, broken R pinky toe, tubal ligation, appendectomy, rhinoplasty, B Carpal Tunnel Syndrome, B wrist pain, CRPS (lower limb), fibromyalgia, insomnia, anxiety, depression - Female History Hx Last Menstrual Period: UNSURE Are you now?: No - Past Surgical History Past Surgical History: Yes Neuro Surgical History: No Pertinent History Cardiac History: No Pertinent History Respiratory Surgery: No Pertinent History GI Surgical History: Appendectomy Genitourinary Surgical Hx: No Pertinent History Musculskeletal Surgical Hx: No Pertinent History Female Surgical History: Tubal Ligation Other Surgical History: rhinoplasty - Social History Smoking Status: Current every day smoker How long have you smoked: 16 Exposure to second hand smoke: Yes Alcohol: Weekly Drug Use: other - Physical Exam Vital Signs: Vital Signs - 24 hr Temp Pulse Resp BP BP Pulse Ox 07/23/23 11:24 100 07/23/23 11:00 86 15 112/78 99 07/23/23 10:30 76 18 121/86 99 07/23/23 10:00 73 18 112/85 100 07/23/23 09:50 78 15 99 07/23/23 09:40 81 23 07/23/23 09:37 76 17 96 07/23/23 08:58 100 07/23/23 08:45 97.5 F 109 H 18 141/102 99 07/23/23 08:44 141/102 100 General Appearance: no apparent distress, alert Neurologic Exam: alert, oriented x 3, cooperative, normal mood/affect, nml cerebellar function, nml station & gait, sensation nml, No motor deficits Eye Exam: PERRL/EOMI, eyes nml inspection Ears, Nose, Throat Exam: normal ENT inspection, TMs normal, pharynx normal, moist mucous membranes Neck Exam: normal inspection, non-tender, supple, full range of motion Respiratory Exam: normal breath sounds, lungs clear, No respiratory distress Cardiovascular Exam: regular rate/rhythm, normal heart sounds, normal peripheral pulses Gastrointestinal/Abdomen Exam: soft, normal bowel sounds, No tenderness, No mass Back Exam: normal inspection, normal range of motion, No CVA tenderness, No vertebral tenderness Extremity Exam: normal inspection, normal range of motion, pelvis stable Skin Exam: normal color, warm, dry, No rash Lymphatic Exam: No adenopathy Results - Labs Lab/Micro Results: Lab Results-Last 24 Hours 07/23/23 07/23/23 07/23/23 Range/Units 09:05 09:05 09:05 WBC 5.0 (4.0-10.5) x10^3/uL RBC 2.75 L (4.1-5.4) x10^6/uL Hgb 10.6 L (12.0-16.0) g/dL Hct 31.4 L (35-47) % MCV 114.2 H (78-100) fL MCH 38.5 H (26-32) pg MCHC 33.8 (32-36) g/dL RDW 17.2 H (11.5-14.0) % Plt Count 344 (150-450) x10^3/uL MPV 11.7 H (7.5-11.0) fL Gran % 60.5 (36.0-66.0) % Immature Gran % (Auto) 0.4 (0.00-0.4) % Nucleat RBC Rel Count 0.0 (0.00-0.1) % Eos # (Auto) 0.02 (0-0.5) x10^3/uL Immature Gran # (Auto) 0.02 (0.00-0.03) x10^3u/L Absolute Lymphs (auto) 1.50 (1.0-4.6) x10^3/uL Absolute Monos (auto) 0.41 (0.0-1.3) x10^3/uL Absolute Nucleated RBC 0.00 (0.00-0.01) x10^3u/L Lymphocytes % 29.9 (24.0-44.0) % Monocytes % 8.2 (0.0-12.0) % Eosinophils % 0.4 (0.00-5.0) % Basophils % 0.6 (0.0-0.4) % Absolute Granulocytes 3.03 (1.4-6.9) x10^3/uL Basophils # 0.03 (0-0.4) x10^3/uL pO2/FiO2 Ratio % VBG pH (7.32-7.42) VBG pCO2 at Pat Temp (42-55) mm/Hg VBG pO2 at Pat Temp (25-40) mm/Hg VBG HCO3 (22-28) meq/L VBG O2 Sat (Carlito) (95-100) VBG Base Excess (-2.0-2.0) VBG Hemoglobin VBG Carboxyhemoglobin (0.0-6.9) % T HGB POC Potassium (3.5-5.1) Sodium 139 (137-145) mmol/L Potassium 3.4 L (3.5-5.1) mmol/L Chloride 104 (98-107) mmol/L Carbon Dioxide 22 (22-30) mmol/L Anion Gap 16.3 H (5-15) MEQ/L BUN < 2 L (7-17) mg/dL Creatinine 0.37 L (0.52-1.04) mg/dL Estimated GFR 129.1 ML/MIN Glucose 81 (74-106) mg/dL Lactic Acid 8.9 H (0.4-2.0) Calcium 7.3 L (8.4-10.2) mg/dL Total Bilirubin 0.60 (0.2-1.3) mg/dL AST 111 H (14-36) U/L ALT 33 (0-35) U/L Alkaline Phosphatase 198 H (38-126) U/L Troponin I (0.000-0.034) ng/mL Serum Total Protein 5.6 L (6.3-8.2) g/dL Albumin 2.8 L (3.5-5.0) g/dL 07/23/23 07/23/23 Range/Units 09:05 09:49 WBC (4.0-10.5) x10^3/uL RBC (4.1-5.4) x10^6/uL Hgb (12.0-16.0) g/dL Hct (35-47) % MCV (78-100) fL MCH (26-32) pg MCHC (32-36) g/dL RDW (11.5-14.0) % Plt Count (150-450) x10^3/uL MPV (7.5-11.0) fL Gran % (36.0-66.0) % Immature Gran % (Auto) (0.00-0.4) % Nucleat RBC Rel Count (0.00-0.1) % Eos # (Auto) (0-0.5) x10^3/uL Immature Gran # (Auto) (0.00-0.03) x10^3u/L Absolute Lymphs (auto) (1.0-4.6) x10^3/uL Absolute Monos (auto) (0.0-1.3) x10^3/uL Absolute Nucleated RBC (0.00-0.01) x10^3u/L Lymphocytes % (24.0-44.0) % Monocytes % (0.0-12.0) % Eosinophils % (0.00-5.0) % Basophils % (0.0-0.4) % Absolute Granulocytes (1.4-6.9) x10^3/uL Basophils # (0-0.4) x10^3/uL pO2/FiO2 Ratio 21.0 % VBG pH 7.49 H (7.32-7.42) VBG pCO2 at Pat Temp 32 L (42-55) mm/Hg VBG pO2 at Pat Temp 52 H (25-40) mm/Hg VBG HCO3 24.4 (22-28) meq/L VBG O2 Sat (Carlito) 76.7 L (95-100) VBG Base Excess 1.5 (-2.0-2.0) VBG Hemoglobin 11.6 VBG Carboxyhemoglobin 5.2 (0.0-6.9) % T HGB POC Potassium 3.5 (3.5-5.1) Sodium (137-145) mmol/L Potassium (3.5-5.1) mmol/L Chloride (98-107) mmol/L Carbon Dioxide (22-30) mmol/L Anion Gap (5-15) MEQ/L BUN (7-17) mg/dL Creatinine (0.52-1.04) mg/dL Estimated GFR ML/MIN Glucose (74-106) mg/dL Lactic Acid (0.4-2.0) Calcium (8.4-10.2) mg/dL Total Bilirubin (0.2-1.3) mg/dL AST (14-36) U/L ALT (0-35) U/L Alkaline Phosphatase (38-126) U/L Troponin I < 0.012 (0.000-0.034) ng/mL Serum Total Protein (6.3-8.2) g/dL Albumin (3.5-5.0) g/dL - Radiology Impressions Radiology Exams & Impressions: Radiology Procedures Category Date Time Status HEAD WITHOUT CONTRAST [CT] Stat Exams 07/23/23 09:29 Completed NECK WO CONTRAST [CT] Stat Exams 07/23/23 09:29 Completed Assessment/Plan (1) Neuropathy Current Visit: Yes Status: Chronic Assessment & Plan: - Chronic neuropathy - Continue gabapentin Code(s): G62.9 - POLYNEUROPATHY, UNSPECIFIED (2) Influenza A Current Visit: Yes Status: Acute Assessment & Plan: - start tamiflu - IVF - Zofran for nausea Code(s): J10.1 - FLU DUE TO OTH IDENT INFLUENZA VIRUS W OTH RESP MANIFEST (3) Lactic acidosis Current Visit: Yes Status: Acute Assessment & Plan: - LA 8.9 in ER- fluid bolus - Fluid bolus on unit - repeat LA 3.3- fluid bolus - Continue to repeat in 4 hours Code(s): E87.20 - ACIDOSIS, UNSPECIFIED (4) Right hand pain Current Visit: Yes Status: Acute Assessment & Plan: - Surgery 1 month ago at [place] - Pt states she pulled the pin out of her hand herself d/t unable to get to appointment - Consider ortho referral tomorrow - No longer going to pain management at [facility] per pt- reports she was receiving norco for carpal tunnel - Reviewed most recent Inspect - Tylenol for pain for now - no edema or erythema of right hand. - elevate extremity if needed - XR right hand 07/22/23 3 view right hand demonstrates mildly angulated fracture distal shaft 5th metacarpal with soft tissue swelling. No other bony, articular, or soft tissue abnormalities Code(s): M79.641 - PAIN IN RIGHT HAND (5) Elevated AST (SGOT) Current Visit: Yes Status: Acute Assessment & Plan: - AST 111- trend - US abd in AM Code(s): R74.01 - ELEVATION OF LEVELS OF LIVER TRANSAMINASE LEVELS (6) Hypokalemia Current Visit: Yes Status: Acute Assessment & Plan: - K+ 3.4- replaced - trend - 2:2 N/V Code(s): E87.6 - HYPOKALEMIA (7) Tetrahydrocannabinol (THC) dependence Current Visit: Yes Status: Acute Assessment & Plan: - pt reports she takes CBD gummies at night to sleep Code(s): F12.20 - CANNABIS DEPENDENCE, UNCOMPLICATED (8) Smoker Current Visit: Yes Status: Acute Assessment & Plan: - nicotine patch - advised cessation Code(s): F17.200 - NICOTINE DEPENDENCE, UNSPECIFIED, UNCOMPLICATED (9) Hypomagnesemia Current Visit: Yes Status: Acute Assessment & Plan: - Mg+ 1.4 - replaced - trend - 2:2 N/V VTE:Lovenox Next of kin: Mathew Yury [phone] Code status: Full D/C plan: 1-2 days Code(s): E83.42 - HYPOMAGNESEMIA
[2023-07-23 12:00] LABS: MAGNESIUM 1.4 mg/dL (1.6-2.3)
[2023-07-23 12:24] LABS: Appearance Clear (Clear); Bacteria None Seen /HPF (None Seen); Bilirubin Negative (Negative); Blood Negative (Negative); Epithelial Cells Few /HPF (None Seen); Glucose, Urine Negative (Negative); Hyaline Casts NONE SEEN /LPF (0-2); Ketones Negative (Negative); Leukocyte Esterase Trace (Negative); Nitrite Negative (Negative); Protein,Urine Dip Negative (Negative); RBC 0-2 /HPF (0-5); Specific Gravity <=1.005 (1.005-1.030); Urobilinogen 0.2 mg/dL (0.2); WBC 0-2 /HPF (0-5)
[2023-07-23 12:34] LABS: ADD URINE CULTURE? NO (NO)
[2023-07-23] MEDS ORDERED: TYLENOL 325 MG PO PRN (12:35)
[2023-07-23 12:36] LABS: Amphetamine,Urine NEGATIVE (NEGATIVE); Barbiturate,Urine NEGATIVE (NEGATIVE); Benzodiazepine,Urine NEGATIVE (NEGATIVE); Cocaine,Urine NEGATIVE (NEGATIVE); Methadone,Urine NEGATIVE (NEGATIVE); Opiate,Urine NEGATIVE (NEGATIVE); PCP,Urine NEGATIVE (NEGATIVE); THC,Urine POSITIVE (NEGATIVE)
[2023-07-23] MEDS: Zofran 4 MG/2 ML VIAL IV PRN ×2 (12:55→22:02)
[2023-07-23] MEDS: Nicoderm CQ 21 MG TOP SCH (14:46)
[2023-07-23] MEDS: ENOXAPARIN SODIUM SQ SCH (14:46)
[2023-07-23] MEDS: Tamiflu 75MG Capsule PO SCH ×2 (14:46→21:53)
[2023-07-23] MEDS ORDERED: Neurontin PO SCH ×2 (16:05→22:00)
[2023-07-23] MEDS: NEURONTIN PO SCH ×2 (16:28→21:52)
[2023-07-23] MEDS ORDERED: DESYREL 50 MG PO SCH (22:00)
[2023-07-23] MEDS: Sodium Chloride 0.9% 1000 ML 1,000 ML IV SCH (22:07)
[2023-07-24 04:54] LABS: Hemoglobin 9.2 g/dL (12.0-16.0); Mean Cell Volume 114.3 fL (78-100); Mean Corpuscular Hemoglobin 37.6 pg (26-32); Mean Corpuscular Hgb Concent. 32.9 g/dL (32-36); Mean Platelet Volume 11.9 fL (7.5-11.0); Platelet Count 292 x10^3/uL (150-450); Red Blood Count 2.45 x10^6/uL (4.1-5.4); Red Cell Distribution Width 17.3 % (11.5-14.0); White Blood Count 4.9 x10^3/uL (4.0-10.5)
--- NOTE | 2023-07-24 05:17 | PCM.NOTE ---
Date and Time: 07/24/23 0515 Subjective Assessment: Ms. Cotton is a 43 year old female with a pmhx of peripheral neuropathy, current smoker, fibromyalgia, anxiety, recent boxers [id number] to right hand (Dr. Chowdhury placement of pins), who presented to ED 07/23/23 with complaints of numbness to from her nose to her bilateral legs for two days. Patient was evaluated in the ED the previous day and diagnosed with Flu A but left AMA. During that visit patient had reported a two week history of cough, congestion,n/v, sore throat, watery stools, subjective fever/chills. CXR was negative for acute cardiopulmonary etiologies. Lab findings significant for lactic acidosis and elevated procal. Patient was given Tamiflu as well as Rocephin/zithromax for possible developing bacterial infection. On return to ED, numbness and weakness evaluated, patient states she has had nausea with vomiting and has not consumed much. She did slide out of bed but denied hitting her her or LOC. CT of head was unremarkable. CT neck demonstrating no acute findings. C5-C6 with posterior disc protrusion without significant neural compromise and upper thoracic levoscoliosis. Lab findings remarkable for re-identified lactic acidosis with levels at 8.9, hypokalemia at 3.4, GAP at 16.3, hypomagnesemia at 1.4, AST at 111, alk phos at 198, and CK at 145. Patient admitted for lactic acidosis and infleunza A. Started on Tamiflu. OBJECTIVE DATA Vital Signs: Vital Signs - 24 hr Temp Pulse Resp BP BP Pulse Ox 07/24/23 04:00 99.6 F 80 20 119/60 95 07/24/23 00:00 16 07/23/23 23:58 98.9 F 83 16 107/68 96 07/23/23 20:00 98.6 F 75 18 123/71 99 07/23/23 16:00 98.0 F 75 16 110/60 96 07/23/23 11:41 97.7 F 76 16 115/72 99 07/23/23 11:24 100 07/23/23 11:00 86 15 112/78 99 07/23/23 10:30 76 18 121/86 99 07/23/23 10:00 73 18 112/85 100 07/23/23 09:50 78 15 99 07/23/23 09:40 81 23 07/23/23 09:37 76 17 96 07/23/23 08:58 100 07/23/23 08:45 97.5 F 109 H 18 141/102 99 07/23/23 08:44 141/102 100 Pain Assessment - Last Documented Pain Intensity 0 Intake and Output: Intake & Output 07/21/23 07/22/23 07/23/23 07/24/23 11:59 11:59 11:59 11:59 Intake Total 4891 Balance 4891 Weight 57.6 kg Lab Results: Lab Results-Last 24 Hours 07/23/23 07/23/23 07/23/23 Range/Units 09:05 09:05 09:05 WBC 5.0 (4.0-10.5) x10^3/uL RBC 2.75 L (4.1-5.4) x10^6/uL Hgb 10.6 L (12.0-16.0) g/dL Hct 31.4 L (35-47) % MCV 114.2 H (78-100) fL MCH 38.5 H (26-32) pg MCHC 33.8 (32-36) g/dL RDW 17.2 H (11.5-14.0) % Plt Count 344 (150-450) x10^3/uL MPV 11.7 H (7.5-11.0) fL Gran % 60.5 (36.0-66.0) % Immature Gran % (Auto) 0.4 (0.00-0.4) % Nucleat RBC Rel Count 0.0 (0.00-0.1) % Eos # (Auto) 0.02 (0-0.5) x10^3/uL Immature Gran # (Auto) 0.02 (0.00-0.03) x10^3u/L Absolute Lymphs (auto) 1.50 (1.0-4.6) x10^3/uL Absolute Monos (auto) 0.41 (0.0-1.3) x10^3/uL Absolute Nucleated RBC 0.00 (0.00-0.01) x10^3u/L Lymphocytes % 29.9 (24.0-44.0) % Monocytes % 8.2 (0.0-12.0) % Eosinophils % 0.4 (0.00-5.0) % Basophils % 0.6 (0.0-0.4) % Absolute Granulocytes 3.03 (1.4-6.9) x10^3/uL Basophils # 0.03 (0-0.4) x10^3/uL pO2/FiO2 Ratio % VBG pH (7.32-7.42) VBG pCO2 at Pat Temp (42-55) mm/Hg VBG pO2 at Pat Temp (25-40) mm/Hg VBG HCO3 (22-28) meq/L VBG O2 Sat (Carlito) (95-100) VBG Base Excess (-2.0-2.0) VBG Hemoglobin VBG Carboxyhemoglobin (0.0-6.9) % T HGB POC Potassium (3.5-5.1) Sodium 139 (137-145) mmol/L Potassium 3.4 L (3.5-5.1) mmol/L Chloride 104 (98-107) mmol/L Carbon Dioxide 22 (22-30) mmol/L Anion Gap 16.3 H (5-15) MEQ/L BUN < 2 L (7-17) mg/dL Creatinine 0.37 L (0.52-1.04) mg/dL Estimated GFR 129.1 ML/MIN Glucose 81 (74-106) mg/dL Lactic Acid 8.9 H (0.4-2.0) Calcium 7.3 L (8.4-10.2) mg/dL Magnesium (1.6-2.3) mg/dL Total Bilirubin 0.60 (0.2-1.3) mg/dL AST 111 H (14-36) U/L ALT 33 (0-35) U/L Alkaline Phosphatase 198 H (38-126) U/L Creatine Kinase (30-135) U/L Troponin I (0.000-0.034) ng/mL Serum Total Protein 5.6 L (6.3-8.2) g/dL Albumin 2.8 L (3.5-5.0) g/dL Urine Color (Yellow) Urine Appearance (Clear) Urine pH (4.6-8.0) Ur Specific [place] (1.005-1.030) Urine Protein (Negative) Urine Glucose (UA) (Negative) mg/dL Urine Ketones (Negative) Urine Blood (Negative) Urine Nitrite (Negative) Urine Bilirubin (Negative) Urine Urobilinogen (0.2) mg/dL Ur Leukocyte Esterase (Negative) U Hyaline Cast (Auto) (0-2) /LPF Urine Microscopic RBC (0-5) /HPF Urine Microscopic WBC (0-5) /HPF Ur Epithelial Cells (None Seen) /HPF Urine Bacteria (None Seen) /HPF Urine Culture Reflexed (NO) Urine Opiates Level (NEGATIVE) Ur Methadone (NEGATIVE) Urine Barbiturates (NEGATIVE) Ur Phencyclidine (PCP) (NEGATIVE) Urine Amphetamine (NEGATIVE) U Benzodiazepine Level (NEGATIVE) Urine Cocaine (NEGATIVE) Urine Marijuana (THC) (NEGATIVE) 07/23/23 07/23/23 07/23/23 Range/Units 09:05 09:06 09:49 WBC (4.0-10.5) x10^3/uL RBC (4.1-5.4) x10^6/uL Hgb (12.0-16.0) g/dL Hct (35-47) % MCV (78-100) fL MCH (26-32) pg MCHC (32-36) g/dL RDW (11.5-14.0) % Plt Count (150-450) x10^3/uL MPV (7.5-11.0) fL Gran % (36.0-66.0) % Immature Gran % (Auto) (0.00-0.4) % Nucleat RBC Rel Count (0.00-0.1) % Eos # (Auto) (0-0.5) x10^3/uL Immature Gran # (Auto) (0.00-0.03) x10^3u/L Absolute Lymphs (auto) (1.0-4.6) x10^3/uL Absolute Monos (auto) (0.0-1.3) x10^3/uL Absolute Nucleated RBC (0.00-0.01) x10^3u/L Lymphocytes % (24.0-44.0) % Monocytes % (0.0-12.0) % Eosinophils % (0.00-5.0) % Basophils % (0.0-0.4) % Absolute Granulocytes (1.4-6.9) x10^3/uL Basophils # (0-0.4) x10^3/uL pO2/FiO2 Ratio 21.0 % VBG pH 7.49 H (7.32-7.42) VBG pCO2 at Pat Temp 32 L (42-55) mm/Hg VBG pO2 at Pat Temp 52 H (25-40) mm/Hg VBG HCO3 24.4 (22-28) meq/L VBG O2 Sat (Carlito) 76.7 L (95-100) VBG Base Excess 1.5 (-2.0-2.0) VBG Hemoglobin 11.6 VBG Carboxyhemoglobin 5.2 (0.0-6.9) % T HGB POC Potassium 3.5 (3.5-5.1) Sodium (137-145) mmol/L Potassium (3.5-5.1) mmol/L Chloride (98-107) mmol/L Carbon Dioxide (22-30) mmol/L Anion Gap (5-15) MEQ/L BUN (7-17) mg/dL Creatinine (0.52-1.04) mg/dL Estimated GFR ML/MIN Glucose (74-106) mg/dL Lactic Acid (0.4-2.0) Calcium (8.4-10.2) mg/dL Magnesium 1.4 L (1.6-2.3) mg/dL Total Bilirubin (0.2-1.3) mg/dL AST (14-36) U/L ALT (0-35) U/L Alkaline Phosphatase (38-126) U/L Creatine Kinase 145 H (30-135) U/L Troponin I < 0.012 (0.000-0.034) ng/mL Serum Total Protein (6.3-8.2) g/dL Albumin (3.5-5.0) g/dL Urine Color (Yellow) Urine Appearance (Clear) Urine pH (4.6-8.0) Ur Specific [place] (1.005-1.030) Urine Protein (Negative) Urine Glucose (UA) (Negative) mg/dL Urine Ketones (Negative) Urine Blood (Negative) Urine Nitrite (Negative) Urine Bilirubin (Negative) Urine Urobilinogen (0.2) mg/dL Ur Leukocyte Esterase (Negative) U Hyaline Cast (Auto) (0-2) /LPF Urine Microscopic RBC (0-5) /HPF Urine Microscopic WBC (0-5) /HPF Ur Epithelial Cells (None Seen) /HPF Urine Bacteria (None Seen) /HPF Urine Culture Reflexed (NO) Urine Opiates Level (NEGATIVE) Ur Methadone (NEGATIVE) Urine Barbiturates (NEGATIVE) Ur Phencyclidine (PCP) (NEGATIVE) Urine Amphetamine (NEGATIVE) U Benzodiazepine Level (NEGATIVE) Urine Cocaine (NEGATIVE) Urine Marijuana (THC) (NEGATIVE) 07/23/23 07/23/23 07/23/23 Range/Units 11:14 12:00 12:00 WBC (4.0-10.5) x10^3/uL RBC (4.1-5.4) x10^6/uL Hgb (12.0-16.0) g/dL Hct (35-47) % MCV (78-100) fL MCH (26-32) pg MCHC (32-36) g/dL RDW (11.5-14.0) % Plt Count (150-450) x10^3/uL MPV (7.5-11.0) fL Gran % (36.0-66.0) % Immature Gran % (Auto) (0.00-0.4) % Nucleat RBC Rel Count (0.00-0.1) % Eos # (Auto) (0-0.5) x10^3/uL Immature Gran # (Auto) (0.00-0.03) x10^3u/L Absolute Lymphs (auto) (1.0-4.6) x10^3/uL Absolute Monos (auto) (0.0-1.3) x10^3/uL Absolute Nucleated RBC (0.00-0.01) x10^3u/L Lymphocytes % (24.0-44.0) % Monocytes % (0.0-12.0) % Eosinophils % (0.00-5.0) % Basophils % (0.0-0.4) % Absolute Granulocytes (1.4-6.9) x10^3/uL Basophils # (0-0.4) x10^3/uL pO2/FiO2 Ratio % VBG pH (7.32-7.42) VBG pCO2 at Pat Temp (42-55) mm/Hg VBG pO2 at Pat Temp (25-40) mm/Hg VBG HCO3 (22-28) meq/L VBG O2 Sat (Carlito) (95-100) VBG Base Excess (-2.0-2.0) VBG Hemoglobin VBG Carboxyhemoglobin (0.0-6.9) % T HGB POC Potassium (3.5-5.1) Sodium (137-145) mmol/L Potassium (3.5-5.1) mmol/L Chloride (98-107) mmol/L Carbon Dioxide (22-30) mmol/L Anion Gap (5-15) MEQ/L BUN (7-17) mg/dL Creatinine (0.52-1.04) mg/dL Estimated GFR ML/MIN Glucose (74-106) mg/dL Lactic Acid 3.3 H (0.4-2.0) Calcium (8.4-10.2) mg/dL Magnesium (1.6-2.3) mg/dL Total Bilirubin (0.2-1.3) mg/dL AST (14-36) U/L ALT (0-35) U/L Alkaline Phosphatase (38-126) U/L Creatine Kinase (30-135) U/L Troponin I (0.000-0.034) ng/mL Serum Total Protein (6.3-8.2) g/dL Albumin (3.5-5.0) g/dL Urine Color Yellow (Yellow) Urine Appearance Clear (Clear) Urine pH 7.0 (4.6-8.0) Ur Specific [place] <=1.005 (1.005-1.030) Urine Protein Negative (Negative) Urine Glucose (UA) Negative (Negative) mg/dL Urine Ketones Negative (Negative) Urine Blood Negative (Negative) Urine Nitrite Negative (Negative) Urine Bilirubin Negative (Negative) Urine Urobilinogen 0.2 (0.2) mg/dL Ur Leukocyte Esterase Trace A (Negative) U Hyaline Cast (Auto) NONE SEEN (0-2) /LPF Urine Microscopic RBC 0-2 (0-5) /HPF Urine Microscopic WBC 0-2 (0-5) /HPF Ur Epithelial Cells Few (None Seen) /HPF Urine Bacteria None Seen (None Seen) /HPF Urine Culture Reflexed NO (NO) Urine Opiates Level NEGATIVE (NEGATIVE) Ur Methadone NEGATIVE (NEGATIVE) Urine Barbiturates NEGATIVE (NEGATIVE) Ur Phencyclidine (PCP) NEGATIVE (NEGATIVE) Urine Amphetamine NEGATIVE (NEGATIVE) U Benzodiazepine Level NEGATIVE (NEGATIVE) Urine Cocaine NEGATIVE (NEGATIVE) Urine Marijuana (THC) POSITIVE A (NEGATIVE) 07/23/23 07/23/23 07/23/23 Range/Units 13:15 15:05 18:31 WBC (4.0-10.5) x10^3/uL RBC (4.1-5.4) x10^6/uL Hgb (12.0-16.0) g/dL Hct (35-47) % MCV (78-100) fL MCH (26-32) pg MCHC (32-36) g/dL RDW (11.5-14.0) % Plt Count (150-450) x10^3/uL MPV (7.5-11.0) fL Gran % (36.0-66.0) % Immature Gran % (Auto) (0.00-0.4) % Nucleat RBC Rel Count (0.00-0.1) % Eos # (Auto) (0-0.5) x10^3/uL Immature Gran # (Auto) (0.00-0.03) x10^3u/L Absolute Lymphs (auto) (1.0-4.6) x10^3/uL Absolute Monos (auto) (0.0-1.3) x10^3/uL Absolute Nucleated RBC (0.00-0.01) x10^3u/L Lymphocytes % (24.0-44.0) % Monocytes % (0.0-12.0) % Eosinophils % (0.00-5.0) % Basophils % (0.0-0.4) % Absolute Granulocytes (1.4-6.9) x10^3/uL Basophils # (0-0.4) x10^3/uL pO2/FiO2 Ratio % VBG pH (7.32-7.42) VBG pCO2 at Pat Temp (42-55) mm/Hg VBG pO2 at Pat Temp (25-40) mm/Hg VBG HCO3 (22-28) meq/L VBG O2 Sat (Carlito) (95-100) VBG Base Excess (-2.0-2.0) VBG Hemoglobin VBG Carboxyhemoglobin (0.0-6.9) % T HGB POC Potassium (3.5-5.1) Sodium (137-145) mmol/L Potassium (3.5-5.1) mmol/L Chloride (98-107) mmol/L Carbon Dioxide (22-30) mmol/L Anion Gap (5-15) MEQ/L BUN (7-17) mg/dL Creatinine (0.52-1.04) mg/dL Estimated GFR ML/MIN Glucose (74-106) mg/dL Lactic Acid 3.1 H (0.4-2.0) Calcium (8.4-10.2) mg/dL Magnesium (1.6-2.3) mg/dL Total Bilirubin (0.2-1.3) mg/dL AST (14-36) U/L ALT (0-35) U/L Alkaline Phosphatase (38-126) U/L Creatine Kinase (30-135) U/L Troponin I < 0.012 < 0.012 (0.000-0.034) ng/mL Serum Total Protein (6.3-8.2) g/dL Albumin (3.5-5.0) g/dL Urine Color (Yellow) Urine Appearance (Clear) Urine pH (4.6-8.0) Ur Specific [place] (1.005-1.030) Urine Protein (Negative) Urine Glucose (UA) (Negative) mg/dL Urine Ketones (Negative) Urine Blood (Negative) Urine Nitrite (Negative) Urine Bilirubin (Negative) Urine Urobilinogen (0.2) mg/dL Ur Leukocyte Esterase (Negative) U Hyaline Cast (Auto) (0-2) /LPF Urine Microscopic RBC (0-5) /HPF Urine Microscopic WBC (0-5) /HPF Ur Epithelial Cells (None Seen) /HPF Urine Bacteria (None Seen) /HPF Urine Culture Reflexed (NO) Urine Opiates Level (NEGATIVE) Ur Methadone (NEGATIVE) Urine Barbiturates (NEGATIVE) Ur Phencyclidine (PCP) (NEGATIVE) Urine Amphetamine (NEGATIVE) U Benzodiazepine Level (NEGATIVE) Urine Cocaine (NEGATIVE) Urine Marijuana (THC) (NEGATIVE) 07/23/23 07/24/23 Range/Units 18:37 04:25 WBC 4.9 (4.0-10.5) x10^3/uL RBC 2.45 L (4.1-5.4) x10^6/uL Hgb 9.2 L (12.0-16.0) g/dL Hct 28.0 L (35-47) % MCV 114.3 H (78-100) fL MCH 37.6 H (26-32) pg MCHC 32.9 (32-36) g/dL RDW 17.3 H (11.5-14.0) % Plt Count 292 (150-450) x10^3/uL MPV 11.9 H (7.5-11.0) fL Gran % (36.0-66.0) % Immature Gran % (Auto) (0.00-0.4) % Nucleat RBC Rel Count (0.00-0.1) % Eos # (Auto) (0-0.5) x10^3/uL Immature Gran # (Auto) (0.00-0.03) x10^3u/L Absolute Lymphs (auto) (1.0-4.6) x10^3/uL Absolute Monos (auto) (0.0-1.3) x10^3/uL Absolute Nucleated RBC (0.00-0.01) x10^3u/L Lymphocytes % (24.0-44.0) % Monocytes % (0.0-12.0) % Eosinophils % (0.00-5.0) % Basophils % (0.0-0.4) % Absolute Granulocytes (1.4-6.9) x10^3/uL Basophils # (0-0.4) x10^3/uL pO2/FiO2 Ratio % VBG pH (7.32-7.42) VBG pCO2 at Pat Temp (42-55) mm/Hg VBG pO2 at Pat Temp (25-40) mm/Hg VBG HCO3 (22-28) meq/L VBG O2 Sat (Carlito) (95-100) VBG Base Excess (-2.0-2.0) VBG Hemoglobin VBG Carboxyhemoglobin (0.0-6.9) % T HGB POC Potassium (3.5-5.1) Sodium (137-145) mmol/L Potassium (3.5-5.1) mmol/L Chloride (98-107) mmol/L Carbon Dioxide (22-30) mmol/L Anion Gap (5-15) MEQ/L BUN (7-17) mg/dL Creatinine (0.52-1.04) mg/dL Estimated GFR ML/MIN Glucose (74-106) mg/dL Lactic Acid 4.5 H (0.4-2.0) Calcium (8.4-10.2) mg/dL Magnesium (1.6-2.3) mg/dL Total Bilirubin (0.2-1.3) mg/dL AST (14-36) U/L ALT (0-35) U/L Alkaline Phosphatase (38-126) U/L Creatine Kinase (30-135) U/L Troponin I (0.000-0.034) ng/mL Serum Total Protein (6.3-8.2) g/dL Albumin (3.5-5.0) g/dL Urine Color (Yellow) Urine Appearance (Clear) Urine pH (4.6-8.0) Ur Specific [place] (1.005-1.030) Urine Protein (Negative) Urine Glucose (UA) (Negative) mg/dL Urine Ketones (Negative) Urine Blood (Negative) Urine Nitrite (Negative) Urine Bilirubin (Negative) Urine Urobilinogen (0.2) mg/dL Ur Leukocyte Esterase (Negative) U Hyaline Cast (Auto) (0-2) /LPF Urine Microscopic RBC (0-5) /HPF Urine Microscopic WBC (0-5) /HPF Ur Epithelial Cells (None Seen) /HPF Urine Bacteria (None Seen) /HPF Urine Culture Reflexed (NO) Urine Opiates Level (NEGATIVE) Ur Methadone (NEGATIVE) Urine Barbiturates (NEGATIVE) Ur Phencyclidine (PCP) (NEGATIVE) Urine Amphetamine (NEGATIVE) U Benzodiazepine Level (NEGATIVE) Urine Cocaine (NEGATIVE) Urine Marijuana (THC) (NEGATIVE) Radiology Exams: Radiology Procedures Category Date Time Status HEAD WITHOUT CONTRAST [CT] Stat Exams 07/23/23 09:29 Completed LIVER OR SPLEEN [US] Routine Exams 07/24/23 13:00 Ordered NECK WO CONTRAST [CT] Stat Exams 07/23/23 09:29 Completed Assessment/Plan (1) Neuropathy Current Visit: Yes Status: Chronic Assessment & Plan: - Chronic neuropathy - Continue gabapentin Code(s): G62.9 - POLYNEUROPATHY, UNSPECIFIED (2) Influenza A Current Visit: Yes Status: Acute Assessment & Plan: - start tamiflu - IVF - Zofran for nausea Code(s): J10.1 - FLU DUE TO OTH IDENT INFLUENZA VIRUS W OTH RESP MANIFEST (3) Lactic acidosis Current Visit: Yes Status: Acute Assessment & Plan: - LA 8.9 in ER- fluid bolus - Fluid bolus on unit - repeat LA 3.3- fluid bolus - Continue to repeat in 4 hours Code(s): E87.20 - ACIDOSIS, UNSPECIFIED (4) Right hand pain Current Visit: Yes Status: Acute Assessment & Plan: - Surgery 1 month ago at [facility] - Pt states she pulled the pin out of her hand herself d/t unable to get to appointment - Consider ortho referral tomorrow - No longer going to pain management at [facility] per pt- reports she was receiving norco for carpal tunnel - Reviewed most recent Inspect - Tylenol for pain for now - no edema or erythema of right hand. - elevate extremity if needed - XR right hand 07/22/23 3 view right hand demonstrates mildly angulated fracture distal shaft 5th metacarpal with soft tissue swelling. No other bony, articular, or soft tissue abnormalities Code(s): M79.641 - PAIN IN RIGHT HAND (5) Elevated AST (SGOT) Current Visit: Yes Status: Acute Assessment & Plan: - AST 111- trend - US abd in AM Code(s): R74.01 - ELEVATION OF LEVELS OF LIVER TRANSAMINASE LEVELS (6) Hypokalemia Current Visit: Yes Status: Acute Assessment & Plan: - K+ 3.4- replaced - trend - 2:2 N/V Code(s): E87.6 - HYPOKALEMIA (7) Tetrahydrocannabinol (THC) dependence Current Visit: Yes Status: Acute Assessment & Plan: - pt reports she takes CBD gummies at night to sleep Code(s): F12.20 - CANNABIS DEPENDENCE, UNCOMPLICATED (8) Smoker Current Visit: Yes Status: Acute Assessment & Plan: - nicotine patch - advised cessation Code(s): F17.200 - NICOTINE DEPENDENCE, UNSPECIFIED, UNCOMPLICATED (9) Hypomagnesemia Current Visit: Yes Status: Acute Assessment & Plan: - Mg+ 1.4 - replaced - trend - 2:2 N/V VTE:Lovenox Next of kin: Mathew Cotton [phone] Code status: Full D/C plan: 1-2 days Code(s): E83.42 - HYPOMAGNESEMIA Code(s): G62.9 - POLYNEUROPATHY, UNSPECIFIED (2) Elevated AST (SGOT) Current Visit: Yes Status: Acute Code(s): R74.01 - ELEVATION OF LEVELS OF LIVER TRANSAMINASE LEVELS (3) Hypokalemia Current Visit: Yes Status: Acute Code(s): E87.6 - HYPOKALEMIA (4) Hypomagnesemia Current Visit: Yes Status: Acute Code(s): E83.42 - HYPOMAGNESEMIA (5) Influenza A Current Visit: Yes Status: Acute Code(s): J10.1 - FLU DUE TO OTH IDENT INFLUENZA VIRUS W OTH RESP MANIFEST (6) Lactic acidosis Current Visit: Yes Status: Acute Code(s): E87.20 - ACIDOSIS, UNSPECIFIED (7) Right hand pain Current Visit: Yes Status: Acute Code(s): M79.641 - PAIN IN RIGHT HAND (8) Smoker Current Visit: Yes Status: Acute Code(s): F17.200 - NICOTINE DEPENDENCE, UNSPECIFIED, UNCOMPLICATED (9) Tetrahydrocannabinol (THC) dependence Current Visit: Yes Status: Acute Code(s): F12.20 - CANNABIS DEPENDENCE, UNCOMPLICATED
[2023-07-24 05:25] LABS: ALBUMIN 2.3 g/dL (3.5-5.0); ALKALINE PHOSPHATASE 181 U/L (38-126); ANION GAP 10.8 MEQ/L (5-15); CHLORIDE 113 mmol/L (98-107); Carbon Dioxide 17 mmol/L (22-30); Creatinine 1 0.36 mg/dL (0.52-1.04); EST GLOMERULAR FILTRATION RATE 129.9 ML/MIN; Glucose 78 mg/dL (74-106); Potassium 3.1 mmol/L (3.5-5.1); SGOT/AST 86 U/L (14-36); SGPT/ALT 17 U/L (0-35); SODIUM 138 mmol/L (137-145); Total Protein 5.2 g/dL (6.3-8.2)
[2023-07-24 05:29] LABS: BLOOD UREA NITROGEN < 2 mg/dL (7-17)
[2023-07-24] MEDS: Klor Con PO SCH ×4 (08:06→13:51)
[2023-07-24] MEDS: Sodium Chloride 0.9% 1000 ML 1,000 ML IV SCH (09:14)
[2023-07-24] MEDS: NEURONTIN PO SCH (09:18)
[2023-07-24] MEDS: Tamiflu 75MG Capsule PO SCH (09:18)
[2023-07-24] MEDS: ENOXAPARIN SODIUM SQ SCH (09:19)
[2023-07-24] MEDS: Nicoderm CQ 21 MG TOP SCH (09:20)
[2023-07-24] MEDS ORDERED: MAG-OX 400 PO SCH (10:00)
[2023-07-24] MEDS ORDERED: SODIUM BICARBONATE PO SCH (10:00)
[2023-07-24 13:05] VITALS: BP 115/83; PULSE 79; RESP 17; TEMP 97.9; O2SAT 96
--- NOTE | 2023-07-24 14:03 | PCM.DS ---
Discharge Summary Date of Admission: 07/23/23 11:22 Date of Discharge: 07/24/23 Admitting Physician: FAHAD MUHAMMAD MD Consults: Consults on Case 07/24/23 11:06 Case Management SDOH DC Needs Assessment ROUTINE Primary Care Provider: NO FAMILY DOCTOR <HEMANTH SOLANO - Last Filed: 07/24/23 13:55> Date of Admission: 07/23/23 11:22 Admitting Physician: FAHAD MUHAMMAD MD Consults: Consults on Case 07/24/23 11:06 Case Management SDOH DC Needs Assessment ROUTINE Primary Care Provider: NO FAMILY DOCTOR <SUSANNA BAH - Last Filed: 07/24/23 21:33> Allergies <HEMANTH SOLANO - Last Filed: 07/24/23 13:55> <SUSANNA BAH - Last Filed: 07/24/23 21:33> Allergies azithromycin [From Zithromax] Adverse Reaction (Intermediate, Verified 07/23/23 08:43) Vomiting steroids Allergy (Severe, Uncoded 07/23/23 08:43) Swelling Hospital Summary - Hospital Course Hospital Course: Ms. Cotton is a 43 year old female with a pmhx of peripheral neuropathy, current smoker, fibromyalgia, anxiety, recent [id number] [id number] to right hand (Dr. Chowdhury placement of pins), who presented to ED 07/23/23 with complaints of numbness to from her nose to her bilateral legs for two days. Patient was evaluated in the ED the previous day and diagnosed with Flu A but left AMA. During that visit patient had reported a two week history of cough, congestion,n/v, sore throat, watery stools, subjective fever/chills. CXR was negative for acute cardiopulmonary etiologies. Lab findings significant for lactic acidosis and elevated procal. Patient was given Tamiflu as well as Rocephin/zithromax for possible developing bacterial infection. On return to ED, numbness and weakness evaluated, patient states she has had nausea with vomiting and has not consumed much. She did slide out of bed but denied hitting her her or LOC. CT of head was unremarkable. CT neck demonstrating no acute findings. C5-C6 with posterior disc protrusion without significant neural compromise and upper thoracic levoscoliosis. Lab findings remarkable for re-identified lactic acidosis with levels at 8.9, hypokalemia at 3.4, GAP at 16.3, hypomagnesemia at 1.4, AST at 111, alk phos at 198, and CK at 145. Patient admitted for lactic acidosis and infleunza A. Started on Tamiflu. Much improvement overnight. No longer with N/V. Patient is requesting discharge today. Liver enzymes were elevated, US was ordered, patient refused this. Potassium and carbon dioxide deficient secondary to GI loss. Will send her home on bicarb as well as potassium supplementation. Patient also to continue Tamiflu. Patient advised to follow up with PCP with labs. Patient verbalized understanding. Discharge Note New Diagnosis: Flu A New Medications: sodium bicarb, potassium Follow Up: PCP Latest Assessment & Plan (1) Neuropathy Current Visit: Yes Status: Chronic Assessment & Plan: - Chronic neuropathy - Continue gabapentin Code(s): G62.9 - POLYNEUROPATHY, UNSPECIFIED (2) Influenza A Current Visit: Yes Status: Acute Assessment & Plan: - start tamiflu - IVF - Zofran for nausea Code(s): J10.1 - FLU DUE TO OTH IDENT INFLUENZA VIRUS W OTH RESP MANIFEST (3) Lactic acidosis Current Visit: Yes Status: Acute Assessment & Plan: - LA 8.9 in ER- fluid bolus - Fluid bolus on unit - repeat LA 3.3- fluid bolus - Continue to repeat in 4 hours Code(s): E87.20 - ACIDOSIS, UNSPECIFIED (4) Right hand pain Current Visit: Yes Status: Acute Assessment & Plan: - Surgery 1 month ago at [place] - Pt states she pulled the pin out of her hand herself d/t unable to get to appointment - Consider ortho referral tomorrow - No longer going to pain management at [facility] per pt- reports she was rec eiving norco for carpal tunnel - Reviewed most recent Inspect - Tylenol for pain for now - no edema or erythema of right hand. - elevate extremity if needed - XR right hand 07/22/23 3 view right hand demonstrates mildly angulated fracture distal shaft 5th metacarpal with soft tissue swelling. No other bony, articular, or soft tissue abnormalities Code(s): M79.641 - PAIN IN RIGHT HAND (5) Elevated AST (SGOT) Current Visit: Yes Status: Acute Assessment & Plan: - AST 111- trend - US abd in AM Code(s): R74.01 - ELEVATION OF LEVELS OF LIVER TRANSAMINASE LEVELS (6) Hypokalemia Current Visit: Yes Status: Acute Assessment & Plan: - K+ 3.4- replaced - trend - 2:2 N/V Code(s): E87.6 - HYPOKALEMIA (7) Tetrahydrocannabinol (THC) dependence Current Visit: Yes Status: Acute Assessment & Plan: - pt reports she takes CBD gummies at night to sleep Code(s): F12.20 - CANNABIS DEPENDENCE, UNCOMPLICATED (8) Smoker Current Visit: Yes Status: Acute Assessment & Plan: - nicotine patch - advised cessation Code(s): F17.200 - NICOTINE DEPENDENCE, UNSPECIFIED, UNCOMPLICATED I spent 35 minutes [id number] with the patient on the day of discharge performing discharge exam, discussing hospital stay and discharge instructions with patient and caregivers, preparation of discharge records, prescriptions & referral forms and addressing any questions/concerns the patient had as do cumented above. - Vitals & Intake/Output Vital Signs: Vital Signs Temperature 97.9 F 07/24/23 12:00 Pulse Rate 79 07/24/23 12:00 Respiratory Rate 17 07/24/23 12:00 Blood Pressure 115/83 07/24/23 12:00 O2 Sat by Pulse Oximetry 96 07/24/23 12:00 Intake & Output: Intake & Output 07/22/23 07/23/23 07/24/23 07/25/23 11:59 11:59 11:59 11:59 Intake Total 5011 Balance 5011 Weight 57.6 kg - Lab Result Diagrams: 07/24/23 04:25 07/24/23 11:40 Lab Results-Last 24 Hrs: Lab Results-Last 24 Hours 07/23/23 07/23/23 07/23/23 Range/Units 15:05 18:31 18:37 WBC (4.0-10.5) x10^3/uL RBC (4.1-5.4) x10^6/uL Hgb (12.0-16.0) g/dL Hct (35-47) % MCV (78-100) fL MCH (26-32) pg MCHC (32-36) g/dL RDW (11.5-14.0) % Plt Count (150-450) x10^3/uL MPV (7.5-11.0) fL Sodium (137-145) mmol/L Potassium (3.5-5.1) mmol/L Chloride (98-107) mmol/L Carbon Dioxide (22-30) mmol/L Anion Gap (5-15) MEQ/L BUN (7-17) mg/dL Creatinine (0.52-1.04) mg/dL Estimated GFR ML/MIN Glucose (74-106) mg/dL Lactic Acid 3.1 H 4.5 H (0.4-2.0) Calcium (8.4-10.2) mg/dL Magnesium (1.6-2.3) mg/dL Total Bilirubin (0.2-1.3) mg/dL AST (14-36) U/L ALT (0-35) U/L Alkaline Phosphatase (38-126) U/L Troponin I < 0.012 (0.000-0.034) ng/mL Serum Total Protein (6.3-8.2) g/dL Albumin (3.5-5.0) g/dL 07/24/23 07/24/23 07/24/23 Range/Units 04:25 04:25 04:25 WBC 4.9 (4.0-10.5) x10^3/uL RBC 2.45 L (4.1-5.4) x10^6/uL Hgb 9.2 L (12.0-16.0) g/dL Hct 28.0 L (35-47) % MCV 114.3 H (78-100) fL MCH 37.6 H (26-32) pg MCHC 32.9 (32-36) g/dL RDW 17.3 H (11.5-14.0) % Plt Count 292 (150-450) x10^3/uL MPV 11.9 H (7.5-11.0) fL Sodium 138 (137-145) mmol/L Potassium 3.1 L (3.5-5.1) mmol/L Chloride 113 H (98-107) mmol/L Carbon Dioxide 17 L (22-30) mmol/L Anion Gap 10.8 (5-15) MEQ/L BUN < 2 L (7-17) mg/dL Creatinine 0.36 L (0.52-1.04) mg/dL Estimated GFR 129.9 ML/MIN Glucose 78 (74-106) mg/dL Lactic Acid (0.4-2.0) Calcium 6.0 L D (8.4-10.2) mg/dL Magnesium 1.9 (1.6-2.3) mg/dL Total Bilirubin 0.60 (0.2-1.3) mg/dL AST 86 H (14-36) U/L ALT 17 (0-35) U/L Alkaline Phosphatase 181 H (38-126) U/L Troponin I (0.000-0.034) ng/mL Serum Total Protein 5.2 L (6.3-8.2) g/dL Albumin 2.3 L (3.5-5.0) g/dL 07/24/23 Range/Units 11:40 WBC (4.0-10.5) x10^3/uL RBC (4.1-5.4) x10^6/uL Hgb (12.0-16.0) g/dL Hct (35-47) % MCV (78-100) fL MCH (26-32) pg MCHC (32-36) g/dL RDW (11.5-14.0) % Plt Count (150-450) x10^3/uL MPV (7.5-11.0) fL Sodium (137-145) mmol/L Potassium 3.4 L (3.5-5.1) mmol/L Chloride (98-107) mmol/L Carbon Dioxide (22-30) mmol/L Anion Gap (5-15) MEQ/L BUN (7-17) mg/dL Creatinine (0.52-1.04) mg/dL Estimated GFR ML/MIN Glucose (74-106) mg/dL Lactic Acid (0.4-2.0) Calcium (8.4-10.2) mg/dL Magnesium (1.6-2.3) mg/dL Total Bilirubin (0.2-1.3) mg/dL AST (14-36) U/L ALT (0-35) U/L Alkaline Phosphatase (38-126) U/L Troponin I (0.000-0.034) ng/mL Serum Total Protein (6.3-8.2) g/dL Albumin (3.5-5.0) g/dL - Radiology Exams Ordered Rad Exams-Entire Visit: Radiology Procedures Category Date Time Status HEAD WITHOUT CONTRAST [CT] Stat Exams 07/23/23 09:29 Completed LIVER OR SPLEEN [US] Routine Exams 07/24/23 13:00 Ordered NECK WO CONTRAST [CT] Stat Exams 07/23/23 09:29 Completed HEMANTH SINGH - Last Filed: 07/24/23 13:55> - Vitals & Intake/Output Vital Signs: Vital Signs Temperature 97.9 F 07/24/23 12:00 Pulse Rate 79 07/24/23 12:00 Respiratory Rate 17 07/24/23 12:00 Blood Pressure 115/83 07/24/23 12:00 O2 Sat by Pulse Oximetry 96 07/24/23 12:00 Intake & Output: Intake & Output 07/22/23 07/23/23 07/24/23 07/25/23 11:59 11:59 11:59 11:59 Intake Total 5011 120 Balance 5011 120 Weight 57.6 kg - Lab Result Diagrams: 07/24/23 04:25 07/24/23 14:24 Lab Results-Last 24 Hrs: Lab Results-Last 24 Hours 07/24/23 07/24/23 07/24/23 Range/Units 04:25 04:25 04:25 WBC 4.9 (4.0-10.5) x10^3/uL RBC 2.45 L (4.1-5.4) x10^6/uL Hgb 9.2 L (12.0-16.0) g/dL Hct 28.0 L (35-47) % MCV 114.3 H (78-100) fL MCH 37.6 H (26-32) pg MCHC 32.9 (32-36) g/dL RDW 17.3 H (11.5-14.0) % Plt Count 292 (150-450) x10^3/uL MPV 11.9 H (7.5-11.0) fL Sodium 138 (137-145) mmol/L Potassium 3.1 L (3.5-5.1) mmol/L Chloride 113 H (98-107) mmol/L Carbon Dioxide 17 L (22-30) mmol/L Anion Gap 10.8 (5-15) MEQ/L BUN < 2 L (7-17) mg/dL Creatinine 0.36 L (0.52-1.04) mg/dL Estimated GFR 129.9 ML/MIN Glucose 78 (74-106) mg/dL Calcium 6.0 L D (8.4-10.2) mg/dL Magnesium 1.9 (1.6-2.3) mg/dL Total Bilirubin 0.60 (0.2-1.3) mg/dL AST 86 H (14-36) U/L ALT 17 (0-35) U/L Alkaline Phosphatase 181 H (38-126) U/L Serum Total Protein 5.2 L (6.3-8.2) g/dL Albumin 2.3 L (3.5-5.0) g/dL 07/24/23 07/24/23 Range/Units 11:40 14:24 WBC (4.0-10.5) x10^3/uL RBC (4.1-5.4) x10^6/uL Hgb (12.0-16.0) g/dL Hct (35-47) % MCV (78-100) fL MCH (26-32) pg MCHC (32-36) g/dL RDW (11.5-14.0) % Plt Count (150-450) x10^3/uL MPV (7.5-11.0) fL Sodium 139 (137-145) mmol/L Potassium 3.4 L 3.8 (3.5-5.1) mmol/L Chloride 113 H (98-107) mmol/L Carbon Dioxide 20 L (22-30) mmol/L Anion Gap 10.0 (5-15) MEQ/L BUN < 2 L (7-17) mg/dL Creatinine 0.38 L (0.52-1.04) mg/dL Estimated GFR 128.2 ML/MIN Glucose 84 (74-106) mg/dL Calcium 6.2 L (8.4-10.2) mg/dL Magnesium (1.6-2.3) mg/dL Total Bilirubin (0.2-1.3) mg/dL AST (14-36) U/L ALT (0-35) U/L Alkaline Phosphatase (38-126) U/L Serum Total Protein (6.3-8.2) g/dL Albumin (3.5-5.0) g/dL - Radiology Exams Ordered Rad Exams-Entire Visit: Radiology Procedures Category Date Time Status HEAD WITHOUT CONTRAST [CT] Stat Exams 07/23/23 09:29 Completed NECK WO CONTRAST [CT] Stat Exams 07/23/23 09:29 Completed <SUSANNA BAH - Last Filed: 07/24/23 21:33> Discharge Exam General Appearance: no apparent distress Neurologic Exam: alert, oriented x 3, cooperative Eye Exam: PERRL Ears, Nose, Throat Exam: normal ENT inspection Neck Exam: normal inspection Respiratory Exam: normal breath sounds, lungs clear Cardiovascular Exam: regular rate/rhythm Gastrointestinal/Abdomen Exam: soft, normal bowel sounds Pelvic Exam: deferred Rectal Exam: deferred Back Exam: normal inspection Extremity Exam: normal inspection Skin Exam: normal color <HEMANTH SOLANO - Last Filed: 07/24/23 13:55> Final Diagnosis/Problem List - Final Discharge Diagnosis/Problem (1) Neuropathy Status: Chronic Code(s): G62.9 - POLYNEUROPATHY, UNSPECIFIED (2) Elevated AST (SGOT) Status: Acute Code(s): R74.01 - ELEVATION OF LEVELS OF LIVER TRANSAMINASE LEVELS (3) Hypokalemia Status: Acute Code(s): E87.6 - HYPOKALEMIA (4) Hypomagnesemia Status: Acute Code(s): E83.42 - HYPOMAGNESEMIA (5) Influenza A Status: Acute Code(s): J10.1 - FLU DUE TO OTH IDENT INFLUENZA VIRUS W OTH RESP MANIFEST (6) Lactic acidosis Status: Acute Code(s): E87.20 - ACIDOSIS, UNSPECIFIED (7) Right hand pain Status: Acute Code(s): M79.641 - PAIN IN RIGHT HAND (8) Smoker Status: Acute Code(s): F17.200 - NICOTINE DEPENDENCE, UNSPECIFIED, UNCOMPLICATED (9) Tetrahydrocannabinol (THC) dependence Status: Acute Code(s): F12.20 - CANNABIS DEPENDENCE, UNCOMPLICATED <HEMANTH SOLANO L. - Last Filed: 07/24/23 13:55> <HEMANTH SOLANO L. - Last Filed: 07/24/23 13:55> <SUSANNA BAH - Last Filed: 07/24/23 21:33> - Discharge Disposition: Home, Self-Care Condition: Stable Prescriptions: New Potassium Chloride 20 meq PO DAILY 5 Days #5 tablet Sodium Bicarbonate 650 mg PO BID 3 Days #6 tablet Oseltamivir 75 mg [Tamiflu 75MG Capsule] 75 mg PO BID 4 Days #8 cap Continue Gabapentin 600 mg PO BID Instructions: Flu, Adult (DC) Additional Instructions: [facility] NURSE WILL CONTACT YOU TO ARRANGE HELP WITH PRAT[facility] S[facility]NCHEZ. THEIR PHONE NUMBER IS [phone] EXT [phone] IF YOU NEED ASSISTANCE AGAIN OR TO FOLLOW UP A REFERRAL WAS ALSO SENT TO [facility] IN [place]. THEY SHOULD CONTACT YOU TO SEE IF YOU QUALIFY FOR AN ASSISTANCE. THEIR PHONE NUMBER IS [phone] IF YOU WOULD LIKE TO FOLLOW UP Follow up with: JOSEPH WALLER FNP [NON-STAFF PHY W/O PRIVILEGES] - 08/04/23 2:00 pm ([facility], NEEDS TO BE THERE 30 MINS BEFORE APPOINTMENT) MELANIE Encounter - MELANIE Encounter Attestation MEALNIE Encounter Attestation: "IhpaopersonallysALBINO Hyatt andhavediscussed pertinent aspects of their care with Hemanth De agree with the history, physical exam (any modifications based on my personal exam will be noted below), assessment, and plan as outlined in original note. Please see immediately below for my summary of findings and additional assessment and plan along with any meaningful corrections/explanations to the Subjective/Objective portions of the MELANIE note will be noted." My portion of the encounter took place via telemedicine. <SUSANNA BAH - Last Filed: 07/24/23 21:33>
[2023-07-24 14:57] LABS: CHLORIDE 113 mmol/L (98-107); Calcium 6.2 mg/dL (8.4-10.2); Carbon Dioxide 20 mmol/L (22-30); Creatinine 1 0.38 mg/dL (0.52-1.04); EST GLOMERULAR FILTRATION RATE 128.2 ML/MIN; Glucose 84 mg/dL (74-106); Potassium 3.8 mmol/L (3.5-5.1); SODIUM 139 mmol/L (137-145)
[2023-07-24 14:59] LABS: BLOOD UREA NITROGEN < 2 mg/dL (7-17)
== END 2023-07-24 15:11 | disposition home or self-care (01) ==
LOC: ED 08:40 → MED SURG 11:22
PROVIDERS: ADMIT Internal Medicine; ATTEND Internal Medicine
DX: G62.9 Polyneuropathy, unspecified (principal); J10.1 Influenza due to other identified influenza virus with other respiratory manifestations; E87.20 Acidosis, unspecified; M79.641 Pain in right hand; R74.01 Elevation of levels of liver transaminase levels; E87.6 Hypokalemia; F12.20 Cannabis dependence, uncomplicated; F17.200 Nicotine dependence, unspecified, uncomplicated; E83.42 Hypomagnesemia; Z79.899 Other long term (current) drug therapy; Z20.828 Contact with and (suspected) exposure to other viral communicable diseases
CPT/HCPCS: 36415; 70450; 70490; 80048; 80053; 80307; 81001; 82550; 82805; 83605; 83735; 84132; 84484; 85025; 85027; 93005; 93041; 94760; 96360; 96365; 96374; 96375; 99285; G0378; J1650; J2270; J2405; J3475; Q3014; A9270-GY

== ENCOUNTER 2023-08-11 15:10 | Emergency (ER) | payer OTHER ==
[2023-08-11] MEDS ORDERED: Sodium Chloride 0.9% 1000 ML 1,000 ML IV STA ×2 (15:28→15:42)
[2023-08-11 15:33] VITALS: TEMP 97.6
[2023-08-11 15:34] VITALS: RESP 18; O2SAT 99
[2023-08-11] MEDS ORDERED: Sodium Chloride 0.9% 1000 ML 0 ML ONE (15:38)
--- NOTE | 2023-08-11 15:42 | ERPHSYRPT ---
- History of Present Illness Time Seen by Provider: 08/11/23 15:25 Historian: patient Patient Subjective Stated Complaint: pt states that for approx one month she has had left upper chest pain and pain under right ribs that has increasingly gotten worse today which brought her to the ED for evaluations. reports she was hospitalized last week for flu A and pneumonia and is still "battling" those. Triage Nursing Assessment: pt ambulated to room 9 independently, pt is alert and oriented times three, able to speak in complete sentences, able to move all extremities, and with resp even and unlabored. pt complains of left upper chest pain and pain under right side of ribs that has been present for approx 1 mo and worsened today. rates pain 5/10 and states it ache/pressure. pt also reports continued nausea and states has vomited approx 6 times today what she describes as "bile like". denies sob, lightheadedness, dizziness, difficulty with urinary or bowel elimination. heart sounds are present and normal. no jvd or edema noted. bilat anterior lung sounds clear throughout. Physician History: The patient presents with right-sided chest pain. She was diagnosed with flu and pneumonia a week ago. She is vomiting here in the emergency room. The patient feels weak. The patient had chest pain since yesterday. It is right- sided. It is sharp. Aspirin Treatment Today: no aspirin today Allergies/Adverse Reactions: azithromycin [From Zithromax] Adverse Reaction (Intermediate, Verified 08/11/23 15:12) Vomiting steroids Allergy (Severe, Uncoded 07/23/23 08:43) Swelling Home Medications: Gabapentin 600 mg PO BID 06/27/22 [History] Hx Tetanus, Diphtheria Vaccination/Date Given: (unknown) Hx Influenza Vaccination/Date Given: No Hx Pneumococcal Vaccination/Date Given: No Immunizations Up to Date: No Travel Risk - International Travel Have you traveled outside of the country in past 3 weeks: No - Coronavirus Screening Are you exhibiting any of the following symptoms?: Yes Symptoms: Vomiting/Diarrhea Close contact with a COVID-19 positive Pt in past 14-21 Days: No - Vaccine Status Have you recieved a Covid-19 vaccination: No - Review of Systems Constitutional: Chills, Fatigue, No Fever Eyes: No Symptoms Ears, Nose, & Throat: No Symptoms Respiratory: Cough, No Dyspnea Cardiac: Chest Pain, No Edema, No Syncope Abdominal/Gastrointestinal: Nausea, Vomiting, No Abdominal Pain, No Diarrhea Genitourinary Symptoms: No Dysuria Musculoskeletal: No Back Pain, No Neck Pain Skin: No Rash Neurological: No Dizziness, No Focal Weakness, No Sensory Changes Psychological: No Symptoms Endocrine: No Symptoms All Other Systems: Reviewed and Negative - Past Medical History Pertinent Past Medical History: Yes Neurological History: Peripheral Neuropathy, Other ENT History: No Pertinent History Cardiac History: No Pertinent History Respiratory History: No Pertinent History Endocrine Medical History: Other Musculoskeletal History: Fractures, Other GI Medical History: No Pertinent History History: No Pertinent History Psycho-Social History: Anxiety Female Reproductive Disorders: No Pertinent History Other Medical History: acute kidney failure, broken R pinky toe, tubal ligation, appendectomy, rhinoplasty, B Carpal Tunnel Syndrome, B wrist pain, CRPS (lower limb), fibromyalgia, insomnia, anxiety, depression - Past Surgical History Past Surgical History: Yes Neuro Surgical History: No Pertinent History Cardiac: No Pertinent History Respiratory: No Pertinent History Gastrointestinal: Appendectomy Genitourinary: No Pertinent History Musculoskeletal: No Pertinent History, Other Female Surgical History: Tubal Ligation Other Surgical History: rhinoplasty. bilat carpal tunnel surgery, bilat wrist surgery - Social History Smoking Status: Current every day smoker How long have you smoked: 16 Exposure to second hand smoke: No Drug Use: other Patient Lives Alone: Yes - Female History Hx Last Menstrual Period: unknown Hx Now: No - Nursing Vital Signs Nursing Vital Signs: Initial Vital Signs Temperature 97.6 F 08/11/23 15:11 Pulse Rate 97 H 08/11/23 15:11 Respiratory Rate 16 08/11/23 15:11 Blood Pressure 135/111 08/11/23 15:11 O2 Sat by Pulse Oximetry 98 08/11/23 15:11 Pain Scale Pain Intensity 5 - Physical Exam General Appearance: no apparent distress, alert, other (The patient is actively vomiting) Eye Exam: PERRL/EOMI, eyes nml inspection Ears, Nose, Throat Exam: normal ENT inspection, moist mucous membranes Neck Exam: normal inspection, non-tender, supple, full range of motion Respiratory Exam: normal breath sounds, lungs clear, No respiratory distress Cardiovascular Exam: regular rate/rhythm, normal heart sounds Gastrointestinal/Abdomen Exam: soft, No tenderness, No mass Back Exam: normal inspection, No CVA tenderness, No vertebral tenderness Extremity Exam: normal inspection, normal range of motion Neurologic Exam: alert, oriented x 3, cooperative, normal mood/affect, sensation nml, No motor deficits Skin Exam: normal color, warm, dry SpO2 Interpretation: normal SpO2: 99 O2 Delivery: Room Air - Course Nursing assessment & vital signs reviewed: Yes EKG Interpreted by Me: Sinus Rhythm, NORMAL AXIS, prolonged QT interval, NORMAL QRS, Non-specific ST Changes, Other (Sinus rhythm rate of 94 repolarization abnormality as well as possible prolonged QT with artifact. Interpreted by myself contemporaneously) Ordered Tests: Active Orders 24 hr Category Date Time Status Telemetry q4h Care 08/11/23 16:29 Active CHEST 1 VIEW (PORTABLE) Stat Exams 08/11/23 15:30 Completed AMYLASE Stat Lab 08/11/23 15:42 Completed CBC W DIFF Stat Lab 08/11/23 15:42 Completed CMP Stat Lab 08/11/23 15:42 Completed D-DIMER QUANTITATIVE Stat Lab 08/11/23 15:30 Completed ETHYL ALCOHOL Stat Lab 08/11/23 15:42 Completed HCG QUALITATIVE, SERUM Stat Lab 08/11/23 15:44 Completed LIPASE Stat Lab 08/11/23 15:42 Completed Lactic Acid Stat Lab 08/11/23 15:38 Completed Lactic Acid Stat Lab 08/11/23 17:41 Received TROPONIN Q4H Lab 08/11/23 15:42 Completed TROPONIN Q4H Lab 08/11/23 19:30 Ordered TROPONIN Q4H Lab 08/11/23 23:30 Ordered UA W/RFX UR CULTURE Stat Lab 08/11/23 17:49 Ordered Transfer Order Routine Transfer 08/11/23 Ordered Medication Summary Generic Name Dose Route Start Last Admin Trade Name Freq PRN Reason Stop Dose Admin Potassium Chloride 20 meq in 100 mls @ 50 mls/hr 08/11/23 16:29 Potassium Chloride 20 Meq In Water 100ml IV 08/11/23 18:28 STAT ONE Discontinued Medications Generic Name Dose Route Start Last Admin Trade Name Freq PRN Reason Stop Dose Admin Droperidol 1.25 mg 08/11/23 15:28 08/11/23 15:45 Droperidol 5 Mg/2 Ml Vial IV 08/11/23 15:29 1.25 mg STAT ONE Administration Droperidol Confirm 08/11/23 15:38 Droperidol 5 Mg/2 Ml Vial Administered 08/11/23 15:39 Dose 5 mg .ROUTE .STK-MED ONE Sodium Chloride 1,000 mls @ 999 mls/hr 08/11/23 15:28 08/11/23 15:45 Sodium Chloride 0.9% 1000 Ml IV 08/11/23 16:28 999 mls/hr .Q1H1M STA Administration Sodium Chloride Confirm 08/11/23 15:38 Sodium Chloride 0.9% 1000 Ml Administered 08/11/23 15:39 Dose 1,000 mls @ ud .ROUTE .STK-MED ONE Sodium Chloride 1,000 mls @ 999 mls/hr 08/11/23 15:42 Sodium Chloride 0.9% 1000 Ml IV 08/11/23 16:42 .Q1H1M STA Sodium Chloride Confirm 08/11/23 17:35 Sodium Chloride 0.9% 1000 Ml Administered 08/11/23 17:36 Dose 1,000 mls @ ud .ROUTE .STK-MED ONE Potassium Chloride Confirm 08/11/23 17:35 Potassium Chloride 20 Meq In Water 100ml Administered 08/11/23 17:36 Dose 100 mls @ ud IV .STK-MED ONE Lab/Rad Data: Laboratory Result Diagrams 08/11/23 15:42 08/11/23 15:42 Laboratory Results 08/11/23 08/11/23 08/11/23 Range/Units Unknown 15:44 15:42 WBC (4.0-10.5) x10^3/uL RBC (4.1-5.4) x10^6/uL Hgb (12.0-16.0) g/dL Hct (35-47) % MCV (78-100) fL MCH (26-32) pg MCHC (32-36) g/dL RDW (11.5-14.0) % Plt Count (150-450) x10^3/uL MPV (7.5-11.0) fL Gran % (36.0-66.0) % Immature Gran % (Auto) (0.00-0.4) % Nucleat RBC Rel Count (0.00-0.1) % Eos # (Auto) (0-0.5) x10^3/uL Immature Gran # (Auto) (0.00-0.03) x10^3u/L Absolute Lymphs (auto) (1.0-4.6) x10^3/uL Absolute Monos (auto) (0.0-1.3) x10^3/uL Absolute Nucleated RBC (0.00-0.01) x10^3u/L Lymphocytes % (24.0-44.0) % Monocytes % (0.0-12.0) % Eosinophils % (0.00-5.0) % Basophils % (0.0-0.4) % Absolute Granulocytes (1.4-6.9) x10^3/uL Basophils # (0-0.4) x10^3/uL D-Dimer (0.0-0.50) mg/L Sodium (137-145) mmol/L Potassium (3.5-5.1) mmol/L Chloride (98-107) mmol/L Carbon Dioxide (22-30) mmol/L Anion Gap (5-15) MEQ/L BUN (7-17) mg/dL Creatinine (0.52-1.04) mg/dL Estimated GFR ML/MIN Glucose (74-106) mg/dL Lactic Acid (0.4-2.0) Calcium (8.4-10.2) mg/dL Total Bilirubin (0.2-1.3) mg/dL AST (14-36) U/L ALT (0-35) U/L Alkaline Phosphatase (38-126) U/L Troponin I 0.037 H* (0.000-0.034) ng/mL Serum Total Protein (6.3-8.2) g/dL Albumin (3.5-5.0) g/dL Amylase (30-110) U/L Lipase (23-300) U/L Serum HCG, Qual NEGATIVE (NEGATIVE) Ethyl Alcohol (0-10) mg/dL Influenza Type A Ag NEGATIVE (NEGATIVE) Influenza Type B Ag NEGATIVE (NEGATIVE) RSV (PCR) NEGATIVE (NEGATIVE) SARS-CoV-2 (PCR) NEGATIVE (NEGATIVE) 08/11/23 08/11/23 08/11/23 Range/Units 15:42 15:42 15:38 WBC 6.8 (4.0-10.5) x10^3/uL RBC 3.18 L (4.1-5.4) x10^6/uL Hgb 11.8 L (12.0-16.0) g/dL Hct 33.3 L (35-47) % MCV 104.7 H (78-100) fL MCH 37.1 H (26-32) pg MCHC 35.4 (32-36) g/dL RDW 17.4 H (11.5-14.0) % Plt Count 330 (150-450) x10^3/uL MPV 10.7 (7.5-11.0) fL Gran % 59.2 (36.0-66.0) % Immature Gran % (Auto) 0.4 (0.00-0.4) % Nucleat RBC Rel Count 0.3 H (0.00-0.1) % Eos # (Auto) 0.02 (0-0.5) x10^3/uL Immature Gran # (Auto) 0.03 (0.00-0.03) x10^3u/L Absolute Lymphs (auto) 2.24 (1.0-4.6) x10^3/uL Absolute Monos (auto) 0.44 (0.0-1.3) x10^3/uL Absolute Nucleated RBC 0.02 H (0.00-0.01) x10^3u/L Lymphocytes % 33.2 (24.0-44.0) % Monocytes % 6.5 (0.0-12.0) % Eosinophils % 0.3 (0.00-5.0) % Basophils % 0.4 (0.0-0.4) % Absolute Granulocytes 3.99 (1.4-6.9) x10^3/uL Basophils # 0.03 (0-0.4) x10^3/uL D-Dimer (0.0-0.50) mg/L Sodium 132 L (137-145) mmol/L Potassium 2.8 L* (3.5-5.1) mmol/L Chloride 98 (98-107) mmol/L Carbon Dioxide 22 (22-30) mmol/L Anion Gap 14.7 (5-15) MEQ/L BUN 3 L (7-17) mg/dL Creatinine 0.42 L (0.52-1.04) mg/dL Estimated GFR 125.2 ML/MIN Glucose 111 H (74-106) mg/dL Lactic Acid 4.6 H (0.4-2.0) Calcium 8.5 (8.4-10.2) mg/dL Total Bilirubin 0.70 (0.2-1.3) mg/dL AST 77 H (14-36) U/L ALT 16 (0-35) U/L Alkaline Phosphatase 193 H (38-126) U/L Troponin I (0.000-0.034) ng/mL Serum Total Protein 6.2 L (6.3-8.2) g/dL Albumin 3.4 L (3.5-5.0) g/dL Amylase 53 (30-110) U/L Lipase 28 (23-300) U/L Serum HCG, Qual (NEGATIVE) Ethyl Alcohol < 10 (0-10) mg/dL Influenza Type A Ag (NEGATIVE) Influenza Type B Ag (NEGATIVE) RSV (PCR) (NEGATIVE) SARS-CoV-2 (PCR) (NEGATIVE) 08/11/23 Range/Units 15:30 WBC (4.0-10.5) x10^3/uL RBC (4.1-5.4) x10^6/uL Hgb (12.0-16.0) g/dL Hct (35-47) % MCV (78-100) fL MCH (26-32) pg MCHC (32-36) g/dL RDW (11.5-14.0) % Plt Count (150-450) x10^3/uL MPV (7.5-11.0) fL Gran % (36.0-66.0) % Immature Gran % (Auto) (0.00-0.4) % Nucleat RBC Rel Count (0.00-0.1) % Eos # (Auto) (0-0.5) x10^3/uL Immature Gran # (Auto) (0.00-0.03) x10^3u/L Absolute Lymphs (auto) (1.0-4.6) x10^3/uL Absolute Monos (auto) (0.0-1.3) x10^3/uL Absolute Nucleated RBC (0.00-0.01) x10^3u/L Lymphocytes % (24.0-44.0) % Monocytes % (0.0-12.0) % Eosinophils % (0.00-5.0) % Basophils % (0.0-0.4) % Absolute Granulocytes (1.4-6.9) x10^3/uL Basophils # (0-0.4) x10^3/uL D-Dimer 0.26 (0.0-0.50) mg/L Sodium (137-145) mmol/L Potassium (3.5-5.1) mmol/L Chloride (98-107) mmol/L Carbon Dioxide (22-30) mmol/L Anion Gap (5-15) MEQ/L BUN (7-17) mg/dL Creatinine (0.52-1.04) mg/dL Estimated GFR ML/MIN Glucose (74-106) mg/dL Lactic Acid (0.4-2.0) Calcium (8.4-10.2) mg/dL Total Bilirubin (0.2-1.3) mg/dL AST (14-36) U/L ALT (0-35) U/L Alkaline Phosphatase (38-126) U/L Troponin I (0.000-0.034) ng/mL Serum Total Protein (6.3-8.2) g/dL Albumin (3.5-5.0) g/dL Amylase (30-110) U/L Lipase (23-300) U/L Serum HCG, Qual (NEGATIVE) Ethyl Alcohol (0-10) mg/dL Influenza Type A Ag (NEGATIVE) Influenza Type B Ag (NEGATIVE) RSV (PCR) (NEGATIVE) SARS-CoV-2 (PCR) (NEGATIVE) Procedures: [id number] RAD/CHEST 1 VIEW (PORTABLE) Indication: Chest pain. Comparison: August 07, 2023 Portable chest is now rotated. Lungs remain hyperinflated and clear. Heart not enlarged. No new/acute cardiopulmonary abnormalities. Reported by: JANICE CHAMPAGNE DO Signed by: JANICE CHAMPAGNE DO Signed date/time: 08/11/23 8216 Copies to: JORGE WEEKS CHAD Troponin was just mildly elevated at 0.037 - Progress Progress Note: 08/11/23 15:40 Chest pain Atypical chest pain History of flu and pneumonia The patient will be evaluated with blood work EKG and chest x-ray. The patient will get a D-dimer and cardiac enzymes. EKG was nondiagnostic the patient had a recent hospitalization. She had flu and pneumonia. We will further reevaluate the patient after the chest x-ray. Nausea vomiting The patient was given IV fluids and droperidol. 08/11/23 15:41 The patient has an elevated lactate of 4.6. The patient was given additional IV fluids 08/11/23 15:46 The patient is going to be hydrated. She is also reportedly an alcoholic. A daily drinker. 08/11/23 17:12 . The patient's workup had a normal D-dimer. Normal chest x-ray. Troponin was mildly elevated at 0.037. Upper limit of normal is 0.034. EKG did not show any signs of overt ischemia. The patient's has vomiting. She is an alcoholic. She is hypokalemic. Her lactate is elevated. Flu COVID and RSV were negative. Once again there was no pneumonia on chest x-ray. I feel the patient stable for admission. Patient will be discussed with the hospitalist. 08/11/23 17:16 The patient will be given IV potassium. The patient was given IV fluids. I feel the elevated lactate is not from sepsis. The patient will be brought in for serial troponins and IV hydration. And lactic acidosis The patient will be discussed with the hospitalist. Bridge orders will be written to initiate admission when the patient has been accepted 08/11/23 17:59 The nurse informed me when I was in the room with a stroke alert that the patient signed out AMA. She was alert and oriented. The nurses gave her the appropriate discharge instructions. They welcome her and tried to convince her to stay. She was being admitted. Pt wants to leave AMA, I have discussed with the patient in usual manner risks and disability, nurses also tried to convince patient to stay and uns uccessful. Pt was instructed to follow up with their PCP or the doctor provided VIVIAN and to return for any changes or concerns. Pt signed AMA form and verbalized understanding of AMA process. 08/11/23 18:00 The patient did not stay long enough or stick around for discharge instructions which I would have provided her. - Departure Departure Disposition: AMA Clinical Impression: Hypokalemia, Nausea and vomiting, Generalized weakness, Lactic acidosis, Vomiting, Chest pain Condition: Fair Critical Care Time: No Referrals: JORGE WEEKS NP [NON-STAFF PHY W/O PRIVILEGES] - Follow up/PCP as directed
[2023-08-11 16:01] LABS: Absolute Neutrophil Ct (ANC) 3.99 x10^3/uL (1.4-6.9); BASOPHIL % 0.4 % (0.0-0.4); Basophil (Absolute #) 0.03 x10^3/uL (0-0.4); Eosinophil % 0.3 % (0.00-5.0); Eosinophil (Absolute #) 0.02 x10^3/uL (0-0.5); Hematocrit 33.3 % (35-47); Hemoglobin 11.8 g/dL (12.0-16.0); IMMATURE GRAN # 0.03 x10^3u/L (0.00-0.03); IMMATURE GRAN % 0.4 % (0.00-0.4); Lymphocyte (Absolute #) 2.24 x10^3/uL (1.0-4.6); Lymphocytes % 33.2 % (24.0-44.0); Mean Cell Volume 104.7 fL (78-100); Mean Corpuscular Hemoglobin 37.1 pg (26-32); Mean Corpuscular Hgb Concent. 35.4 g/dL (32-36); Mean Platelet Volume 10.7 fL (7.5-11.0); Monocyte (Absolute #) 0.44 x10^3/uL (0.0-1.3); Monocytes % 6.5 % (0.0-12.0); NUCLEATED RBC # 0.02 x10^3u/L (0.00-0.01); NUCLEATED RBC % 0.3 % (0.00-0.1); Neutrophil % 59.2 % (36.0-66.0); Platelet Count 330 x10^3/uL (150-450); Red Blood Count 3.18 x10^6/uL (4.1-5.4); Red Cell Distribution Width 17.4 % (11.5-14.0); White Blood Count 6.8 x10^3/uL (4.0-10.5)
--- NOTE | 2023-08-11 16:07 | XRAY ---
Indication: Chest pain. Comparison: August 07, 2023 Portable chest is now rotated. Lungs remain hyperinflated and clear. Heart not enlarged. No new/acute cardiopulmonary abnormalities.
[2023-08-11 16:15] LABS: ALBUMIN 3.4 g/dL (3.5-5.0); ALKALINE PHOSPHATASE 193 U/L (38-126); AMYLASE 53 U/L (30-110); ANION GAP 14.7 MEQ/L (5-15); BLOOD UREA NITROGEN 3 mg/dL (7-17); CHLORIDE 98 mmol/L (98-107); Calcium 8.5 mg/dL (8.4-10.2); Carbon Dioxide 22 mmol/L (22-30); Creatinine 1 0.42 mg/dL (0.52-1.04); EST GLOMERULAR FILTRATION RATE 125.2 ML/MIN; ETHYL ALCOHOL < 10 mg/dL (0-10); Glucose 111 mg/dL (74-106); LIPASE 28 U/L (23-300); SGOT/AST 77 U/L (14-36); SGPT/ALT 16 U/L (0-35); SODIUM 132 mmol/L (137-145); Total Protein 6.2 g/dL (6.3-8.2)
[2023-08-11 16:21] LABS: Potassium 2.8 mmol/L (3.5-5.1)
[2023-08-11 16:24] VITALS: BP 121/77; PULSE 85
[2023-08-11 16:25] LABS: INFLUENZA A NEGATIVE (NEGATIVE); INFLUENZA B NEGATIVE (NEGATIVE); RESPIRATORY SYNCTIAL VIRUS NEGATIVE (NEGATIVE); SARS-CoV-2 Xpert Express NEGATIVE (NEGATIVE)
[2023-08-11 16:26] LABS: HCG SERUM TEST NEGATIVE (NEGATIVE)
[2023-08-11] MEDS ORDERED: POTASSIUM CHLORIDE 20 mEq IN WATER 100ML 20 MEQ/100 ML BAG IV ONE (16:29)
[2023-08-11] MEDS ORDERED: POTASSIUM CHLORIDE 20 mEq IN WATER 100ML 0 ML IV ONE (17:35)
[2023-08-11] MEDS ORDERED: Sodium Chloride 0.9% 1000 ML 1,000 ML ONE (17:35)
[2023-08-11 18:44] LABS: ADD URINE CULTURE? YES (NO); Appearance Clear (Clear); Bacteria None Seen /HPF (None Seen); Bilirubin Negative (Negative); Blood Negative (Negative); Epithelial Cells None Seen /HPF (None Seen); Glucose, Urine Negative (Negative); Hyaline Casts NONE SEEN /LPF (0-2); Ketones Negative (Negative); Leukocyte Esterase Moderate (Negative); Nitrite Negative (Negative); Ph 7.5 (4.6-8.0); Protein,Urine Dip Trace (Negative); RBC 0-2 /HPF (0-5); Specific Gravity <=1.005 (1.005-1.030); Urobilinogen 0.2 mg/dL (0.2)
== END 2023-08-11 18:00 | disposition left against medical advice (07) ==
LOC: ED 15:10
DX: E87.6 Hypokalemia (principal); R11.2 Nausea with vomiting, unspecified; R53.1 Weakness; E87.20 Acidosis, unspecified; R07.9 Chest pain, unspecified; Z79.899 Other long term (current) drug therapy; Z28.310 Unvaccinated for COVID-19; Z72.0 Tobacco use
CPT/HCPCS: 0241U; 36415; 71045; 80053; 81001; 82077; 82150; 83605; 83690; 84484; 84703; 85025; 85379; 87086; 96360; 96374; 99284; J3480

== ENCOUNTER 2023-08-13 18:34 | Emergency (ER) | payer OTHER ==
[2023-08-13 18:53] VITALS: TEMP 97.4
--- NOTE | 2023-08-13 19:26 | ERPHSYRPT ---
- History of Present Illness Time Seen by Provider: 08/13/23 19:15 Source: patient Exam Limitations: no limitations Patient Subjective Stated Complaint: States was laying in bed having heart palpitations, numb in chest to buttock area, fell on way to the bathroom. Whole body muscles hurting Triage Nursing Assessment: Patient presents by EMS for weakness. States that she was laying in bed and started to have the heart palpitations and started to go numb in her chest and it went to her buttock area. Got up to go to the bathroom when she fell on way to the bathroom. States took the THC gummy prior to going to bed. Physician History: For the past 45 minutes pt has had heart palpitations and diaphoresis; 2 days ago she has had generalized weakness and a potassium of 2.0; also c/o some numbness from her chest to her buttocks; denies fever, cough, vomiting, diarrhea, rash. Pt states she fell tonight but nothing is painful. Allergies/Adverse Reactions: azithromycin [From Zithromax] Adverse Reaction (Intermediate, Verified 08/11/23 15:12) Vomiting steroids Allergy (Severe, Uncoded 07/23/23 08:43) Swelling Home Medications: Gabapentin 600 mg PO BID 06/27/22 [History] Hx Tetanus, Diphtheria Vaccination/Date Given: No (unknown) Hx Influenza Vaccination/Date Given: No Hx Pneumococcal Vaccination/Date Given: No Immunizations Up to Date: No Travel Risk - International Travel Have you traveled outside of the country in past 3 weeks: No - Coronavirus Screening Are you exhibiting any of the following symptoms?: No Close contact with a COVID-19 positive Pt in past 14-21 Days: No - Vaccine Status Have you recieved a Covid-19 vaccination: No - Review of Systems Constitutional: No Fever Ears, Nose, & Throat: No Ear Pain Respiratory: No Cough, No Dyspnea Cardiac: Palpitations Abdominal/Gastrointestinal: No Vomiting Genitourinary Symptoms: No Dysuria Skin: No Rash Neurological: No Headache - Past Medical History Pertinent Past Medical History: Yes Neurological History: Peripheral Neuropathy, Other ENT History: No Pertinent History Cardiac History: No Pertinent History Respiratory History: No Pertinent History Endocrine Medical History: Other Musculoskeletal History: Fractures, Other GI Medical History: No Pertinent History History: No Pertinent History Psycho-Social History: Anxiety Female Reproductive Disorders: No Pertinent History Other Medical History: acute kidney failure, broken R pinky toe, tubal ligation, appendectomy, rhinoplasty, B Carpal Tunnel Syndrome, B wrist pain, CRPS (lower limb), fibromyalgia, insomnia, anxiety, depression - Past Surgical History Past Surgical History: Yes Neuro Surgical History: No Pertinent History Cardiac: No Pertinent History Respiratory: No Pertinent History Gastrointestinal: Appendectomy Genitourinary: No Pertinent History Musculoskeletal: No Pertinent History, Other Female Surgical History: Tubal Ligation Other Surgical History: rhinoplasty. bilat carpal tunnel surgery, bilat wrist surgery - Social History Smoking Status: Current every day smoker How long have you smoked: 16 Exposure to second hand smoke: No Drug Use: other Patient Lives Alone: Yes - Female History Hx Now: No - Nursing Vital Signs Nursing Vital Signs: Initial Vital Signs Temperature 97.4 F 08/13/23 18:36 Pulse Rate 84 08/13/23 18:36 Respiratory Rate 18 08/13/23 18:36 Blood Pressure 127/91 08/13/23 18:36 O2 Sat by Pulse Oximetry 99 08/13/23 18:36 Pain Scale Pain Intensity 4 - Physical Exam General Appearance: alert Eye Exam: No photophobia Ears, Nose, Throat Exam: TMs normal, moist mucous membranes, pharyngeal erythema Neck Exam: normal inspection Respiratory Exam: lungs clear, airway intact Cardiovascular Exam: normal heart sounds Gastrointestinal/Abdomen Exam: normal bowel sounds Back Exam: normal inspection Extremity Exam: No pedal edema Neurologic Exam: alert, cooperative, sensation nml, No motor deficits Skin Exam: warm, dry SpO2 Interpretation: normal SpO2: 99 O2 Delivery: Room Air - Course Nursing assessment & vital signs reviewed: Yes EKG Interpreted by Me: RATE (80), Sinus Rhythm, NORMAL AXIS, Other (QTc = 486) - Radiology Exams Chest X-ray Interpretation: Interpreted by me, No Pneumonia - CT Exams Head CT Interpretation: Tele-radiologist Report (Unremarkable study) Ordered Tests: Active Orders 24 hr Category Date Time Status EKG-ER Only STAT Care 08/13/23 19:31 Active IV Insertion STAT Care 08/13/23 19:31 Active CHEST 2 VIEWS (PA AND LAT) Stat Exams 08/13/23 19:33 Taken HEAD WITHOUT CONTRAST [CT] Stat Exams 08/13/23 19:34 Completed AMYLASE Stat Lab 08/13/23 18:50 Completed CBC W DIFF Stat Lab 08/13/23 18:50 Completed CMP Stat Lab 08/13/23 18:50 Completed HCG QUALITATIVE, SERUM Stat Lab 08/13/23 18:50 Completed LIPASE Stat Lab 08/13/23 18:50 Completed MAGNESIUM Stat Lab 08/13/23 18:50 Completed MONO SCREEN Stat Lab 08/13/23 20:00 Completed TROPONIN Q4H Lab 08/13/23 18:50 Completed TROPONIN Q4H Lab 08/14/23 03:45 Ordered UA W/RFX UR CULTURE Stat Lab 08/13/23 22:11 Completed Urine Triage Profile Stat Lab 08/13/23 22:11 Completed Medication Summary Generic Name Dose Route Start Last Admin Trade Name Freq PRN Reason Stop Dose Admin Sodium Chloride 1,000 mls @ 100 mls/hr 08/13/23 19:45 08/13/23 20:06 Sodium Chloride 0.9% 1000 Ml IV 09/12/23 19:44 100 mls/hr .Q10H JULIANNA Administration Discontinued Medications Generic Name Dose Route Start Last Admin Trade Name Freq PRN Reason Stop Dose Admin Aspirin 324 mg 08/13/23 19:31 08/13/23 20:05 Aspirin 81 Mg Tab.Chew PO 08/13/23 19:32 324 mg STAT ONE Administration Aspirin Confirm 08/13/23 19:59 Aspirin 81 Mg Tab.Chew Administered 08/13/23 20:00 Dose 324 mg .ROUTE .STK-MED ONE Nitrofurantoin Macrocrystals 100 mg 08/13/23 22:34 08/13/23 22:37 Nitrofurantoin Macro 100 Mg Capsule PO 08/13/23 22:35 100 mg STAT ONE Administration Nitrofurantoin Macrocrystals Confirm 08/13/23 22:36 Nitrofurantoin Macro 100 Mg Capsule Administered 08/13/23 22:37 Dose 100 mg .ROUTE .STK-MED ONE Potassium Chloride 20 meq 08/13/23 20:28 08/13/23 20:32 Potassium Chloride Tab 10 Meq Tab PO 08/13/23 20:29 20 meq STAT ONE Administration Potassium Chloride Confirm 08/13/23 20:31 Potassium Chloride Tab 10 Meq Tab Administered 08/13/23 20:32 Dose 20 meq .ROUTE .STK-MED ONE Lab/Rad Data: Laboratory Result Diagrams 08/13/23 18:50 08/13/23 18:50 Laboratory Results 08/13/23 08/13/23 08/13/23 Range/Units 22:11 22:11 20:00 WBC (4.0-10.5) x10^3/uL RBC (4.1-5.4) x10^6/uL Hgb (12.0-16.0) g/dL Hct (35-47) % MCV (78-100) fL MCH (26-32) pg MCHC (32-36) g/dL RDW (11.5-14.0) % Plt Count (150-450) x10^3/uL MPV (7.5-11.0) fL Gran % (36.0-66.0) % Immature Gran % (Auto) (0.00-0.4) % Nucleat RBC Rel Count (0.00-0.1) % Eos # (Auto) (0-0.5) x10^3/uL Immature Gran # (Auto) (0.00-0.03) x10^3u/L Absolute Lymphs (auto) (1.0-4.6) x10^3/uL Absolute Monos (auto) (0.0-1.3) x10^3/uL Absolute Nucleated RBC (0.00-0.01) x10^3u/L Lymphocytes % (24.0-44.0) % Monocytes % (0.0-12.0) % Eosinophils % (0.00-5.0) % Basophils % (0.0-0.4) % Absolute Granulocytes (1.4-6.9) x10^3/uL Basophils # (0-0.4) x10^3/uL Sodium (137-145) mmol/L Potassium (3.5-5.1) mmol/L Chloride (98-107) mmol/L Carbon Dioxide (22-30) mmol/L Anion Gap (5-15) MEQ/L BUN (7-17) mg/dL Creatinine (0.52-1.04) mg/dL Estimated GFR ML/MIN Glucose (74-106) mg/dL Calcium (8.4-10.2) mg/dL Magnesium (1.6-2.3) mg/dL Total Bilirubin (0.2-1.3) mg/dL AST (14-36) U/L ALT (0-35) U/L Alkaline Phosphatase (38-126) U/L Troponin I (0.000-0.034) ng/mL Serum Total Protein (6.3-8.2) g/dL Albumin (3.5-5.0) g/dL Amylase (30-110) U/L Lipase (23-300) U/L Serum HCG, Qual (NEGATIVE) Urine Color Yellow (Yellow) Urine Appearance Clear (Clear) Urine pH 8.0 (4.6-8.0) Ur Specific [place] <=1.005 (1.005-1.030) Urine Protein Negative (Negative) Urine Glucose (UA) Negative (Negative) mg/dL Urine Ketones Negative (Negative) Urine Blood Negative (Negative) Urine Nitrite Negative (Negative) Urine Bilirubin Negative (Negative) Urine Urobilinogen 0.2 (0.2) mg/dL Ur Leukocyte Esterase Moderate A (Negative) U Hyaline Cast (Auto) NONE SEEN (0-2) /LPF Urine Microscopic RBC 0-2 (0-5) /HPF Urine Microscopic WBC 6-10 A (0-5) /HPF Ur Epithelial Cells Rare (None Seen) /HPF Urine Bacteria None Seen (None Seen) /HPF Urine Culture Reflexed NO (NO) Urine Opiates Level NEGATIVE (NEGATIVE) Ur Methadone NEGATIVE (NEGATIVE) Urine Barbiturates NEGATIVE (NEGATIVE) Ur Phencyclidine (PCP) NEGATIVE (NEGATIVE) Urine Amphetamine NEGATIVE (NEGATIVE) U Benzodiazepine Level NEGATIVE (NEGATIVE) Urine Cocaine NEGATIVE (NEGATIVE) Urine Marijuana (THC) POSITIVE A (NEGATIVE) Monoscreen NEGATIVE (NEGATIVE) 08/13/23 08/13/23 08/13/23 Range/Units 18:50 18:50 18:50 WBC (4.0-10.5) x10^3/uL RBC (4.1-5.4) x10^6/uL Hgb (12.0-16.0) g/dL Hct (35-47) % MCV (78-100) fL MCH (26-32) pg MCHC (32-36) g/dL RDW (11.5-14.0) % Plt Count (150-450) x10^3/uL MPV (7.5-11.0) fL Gran % (36.0-66.0) % Immature Gran % (Auto) (0.00-0.4) % Nucleat RBC Rel Count (0.00-0.1) % Eos # (Auto) (0-0.5) x10^3/uL Immature Gran # (Auto) (0.00-0.03) x10^3u/L Absolute Lymphs (auto) (1.0-4.6) x10^3/uL Absolute Monos (auto) (0.0-1.3) x10^3/uL Absolute Nucleated RBC (0.00-0.01) x10^3u/L Lymphocytes % (24.0-44.0) % Monocytes % (0.0-12.0) % Eosinophils % (0.00-5.0) % Basophils % (0.0-0.4) % Absolute Granulocytes (1.4-6.9) x10^3/uL Basophils # (0-0.4) x10^3/uL Sodium 133 L (137-145) mmol/L Potassium 3.3 L (3.5-5.1) mmol/L Chloride 101 (98-107) mmol/L Carbon Dioxide 24 (22-30) mmol/L Anion Gap 11.3 (5-15) MEQ/L BUN 2 L (7-17) mg/dL Creatinine 0.40 L (0.52-1.04) mg/dL Estimated GFR 126.7 ML/MIN Glucose 91 (74-106) mg/dL Calcium 8.8 (8.4-10.2) mg/dL Magnesium 1.6 (1.6-2.3) mg/dL Total Bilirubin 0.50 (0.2-1.3) mg/dL AST 85 H (14-36) U/L ALT 14 (0-35) U/L Alkaline Phosphatase 175 H (38-126) U/L Troponin I < 0.012 (0.000-0.034) ng/mL Serum Total Protein 6.4 (6.3-8.2) g/dL Albumin 3.4 L (3.5-5.0) g/dL Amylase 47 (30-110) U/L Lipase 26 (23-300) U/L Serum HCG, Qual NEGATIVE (NEGATIVE) Urine Color (Yellow) Urine Appearance (Clear) Urine pH (4.6-8.0) Ur Specific [place] (1.005-1.030) Urine Protein (Negative) Urine Glucose (UA) (Negative) mg/dL Urine Ketones (Negative) Urine Blood (Negative) Urine Nitrite (Negative) Urine Bilirubin (Negative) Urine Urobilinogen (0.2) mg/dL Ur Leukocyte Esterase (Negative) U Hyaline Cast (Auto) (0-2) /LPF Urine Microscopic RBC (0-5) /HPF Urine Microscopic WBC (0-5) /HPF Ur Epithelial Cells (None Seen) /HPF Urine Bacteria (None Seen) /HPF Urine Culture Reflexed (NO) Urine Opiates Level (NEGATIVE) Ur Methadone (NEGATIVE) Urine Barbiturates (NEGATIVE) Ur Phencyclidine (PCP) (NEGATIVE) Urine Amphetamine (NEGATIVE) U Benzodiazepine Level (NEGATIVE) Urine Cocaine (NEGATIVE) Urine Marijuana (THC) (NEGATIVE) Monoscreen (NEGATIVE) 08/13/23 Range/Units 18:50 WBC 6.7 (4.0-10.5) x10^3/uL RBC 3.26 L (4.1-5.4) x10^6/uL Hgb 12.0 (12.0-16.0) g/dL Hct 34.3 L (35-47) % MCV 105.2 H (78-100) fL MCH 36.8 H (26-32) pg MCHC 35.0 (32-36) g/dL RDW 18.4 H (11.5-14.0) % Plt Count 380 (150-450) x10^3/uL MPV 11.4 H (7.5-11.0) fL Gran % 49.8 (36.0-66.0) % Immature Gran % (Auto) 1.0 H (0.00-0.4) % Nucleat RBC Rel Count 0.3 H (0.00-0.1) % Eos # (Auto) 0.03 (0-0.5) x10^3/uL Immature Gran # (Auto) 0.07 H (0.00-0.03) x10^3u/L Absolute Lymphs (auto) 2.70 (1.0-4.6) x10^3/uL Absolute Monos (auto) 0.56 (0.0-1.3) x10^3/uL Absolute Nucleated RBC 0.02 H (0.00-0.01) x10^3u/L Lymphocytes % 40.1 (24.0-44.0) % Monocytes % 8.3 (0.0-12.0) % Eosinophils % 0.4 (0.00-5.0) % Basophils % 0.4 (0.0-0.4) % Absolute Granulocytes 3.34 (1.4-6.9) x10^3/uL Basophils # 0.03 (0-0.4) x10^3/uL Sodium (137-145) mmol/L Potassium (3.5-5.1) mmol/L Chloride (98-107) mmol/L Carbon Dioxide (22-30) mmol/L Anion Gap (5-15) MEQ/L BUN (7-17) mg/dL Creatinine (0.52-1.04) mg/dL Estimated GFR ML/MIN Glucose (74-106) mg/dL Calcium (8.4-10.2) mg/dL Magnesium (1.6-2.3) mg/dL Total Bilirubin (0.2-1.3) mg/dL AST (14-36) U/L ALT (0-35) U/L Alkaline Phosphatase (38-126) U/L Troponin I (0.000-0.034) ng/mL Serum Total Protein (6.3-8.2) g/dL Albumin (3.5-5.0) g/dL Amylase (30-110) U/L Lipase (23-300) U/L Serum HCG, Qual (NEGATIVE) Urine Color (Yellow) Urine Appearance (Clear) Urine pH (4.6-8.0) Ur Specific [place] (1.005-1.030) Urine Protein (Negative) Urine Glucose (UA) (Negative) mg/dL Urine Ketones (Negative) Urine Blood (Negative) Urine Nitrite (Negative) Urine Bilirubin (Negative) Urine Urobilinogen (0.2) mg/dL Ur Leukocyte Esterase (Negative) U Hyaline Cast (Auto) (0-2) /LPF Urine Microscopic RBC (0-5) /HPF Urine Microscopic WBC (0-5) /HPF Ur Epithelial Cells (None Seen) /HPF Urine Bacteria (None Seen) /HPF Urine Culture Reflexed (NO) Urine Opiates Level (NEGATIVE) Ur Methadone (NEGATIVE) Urine Barbiturates (NEGATIVE) Ur Phencyclidine (PCP) (NEGATIVE) Urine Amphetamine (NEGATIVE) U Benzodiazepine Level (NEGATIVE) Urine Cocaine (NEGATIVE) Urine Marijuana (THC) (NEGATIVE) Monoscreen (NEGATIVE) - Progress Progress: unchanged Progress Note: 08/13/23 22:27 Pt refused strep and covid tests. Counseled pt/family regarding: lab results, diagnosis, need for follow-up, rad results Medical Desision Making - Diagnostic Testing Diagnostic test were ordered, analyzed, and reviewed by me: Yes Radiological Interpretation: Interpreted by me, Teleradiologist Report - Departure Departure Disposition: Home Clinical Impression: Heart palpitations, Weakness, numbness of chest to buttocks, UTI (urinary tract infection), UDS + for THC Condition: Stable Critical Care Time: No Referrals: SARA MELLO MD [Primary Care Provider] - Follow up/PCP as directed Instructions: Urinary Tract Infection, Adult (DC) Additional Instructions: Follow up with private doctor tomorrow. Prescriptions: Nitrofurantoin Macro 100 mg [Macrobid 100MG Capsule] 100 mg PO BID #14 cap
[2023-08-13] MEDS ORDERED: BABY ASPIRIN 81 MG CHEW PO ONE (19:31)
[2023-08-13 19:39] LABS: Absolute Neutrophil Ct (ANC) 3.34 x10^3/uL (1.4-6.9); BASOPHIL % 0.4 % (0.0-0.4); Basophil (Absolute #) 0.03 x10^3/uL (0-0.4); Eosinophil % 0.4 % (0.00-5.0); Eosinophil (Absolute #) 0.03 x10^3/uL (0-0.5); Hematocrit 34.3 % (35-47); IMMATURE GRAN # 0.07 x10^3u/L (0.00-0.03); Lymphocytes % 40.1 % (24.0-44.0); Mean Cell Volume 105.2 fL (78-100); Mean Corpuscular Hemoglobin 36.8 pg (26-32); Mean Platelet Volume 11.4 fL (7.5-11.0); Monocyte (Absolute #) 0.56 x10^3/uL (0.0-1.3); Monocytes % 8.3 % (0.0-12.0); NUCLEATED RBC # 0.02 x10^3u/L (0.00-0.01); NUCLEATED RBC % 0.3 % (0.00-0.1); Neutrophil % 49.8 % (36.0-66.0); Platelet Count 380 x10^3/uL (150-450); Red Blood Count 3.26 x10^6/uL (4.1-5.4); Red Cell Distribution Width 18.4 % (11.5-14.0); White Blood Count 6.7 x10^3/uL (4.0-10.5)
[2023-08-13 19:45] LABS: HCG SERUM TEST NEGATIVE (NEGATIVE)
[2023-08-13] MEDS ORDERED: Sodium Chloride 0.9% 1000 ML 1,000 ML IV SCH ×2 (19:45)
[2023-08-13 19:49] LABS: ALBUMIN 3.4 g/dL (3.5-5.0); ANION GAP 11.3 MEQ/L (5-15); BILIRUBIN,TOTAL 0.5 mg/dL (0.2-1.3); Calcium 8.8 mg/dL (8.4-10.2); Creatinine 1 0.4 mg/dL (0.52-1.04); EST GLOMERULAR FILTRATION RATE 126.7 ML/MIN; MAGNESIUM 1.6 mg/dL (1.6-2.3); Potassium 3.3 mmol/L (3.5-5.1); Total Protein 6.4 g/dL (6.3-8.2)
[2023-08-13] MEDS ORDERED: BABY ASPIRIN 81 MG CHEW ONE (19:59)
[2023-08-13] MEDS ORDERED: Sodium Chloride 0.9% 1000 ML 1,000 ML ONE (19:59)
[2023-08-13] MEDS ORDERED: Klor Con PO ONE (20:28)
[2023-08-13] MEDS ORDERED: Klor Con ONE (20:31)
--- NOTE | 2023-08-13 21:03 | XRAY ---
CLINICAL HISTORY: numbness TECHNIQUE: Axial non-contrast CT study of the brain was performed with sagittal and coronal reconstructions. COMPARISON: CT dated 07/23/2023. FINDINGS: The visualized brain parenchyma shows a normal appearance. [place]ela-white matter differentiation is maintained. No midline shifts or deformity. No intracerebral or extra axial hematoma. Normal size and configuration of the cerebral ventricles. Normal CT appearance of the posterior fossa structures namely the cerebellar hemispheres, brainstem, and cerebellar peduncles. The cerebello-pontine angles are clear. The pituitary gland, the pineal gland, and the optic chiasm are unremarkable. No definite calvarium fractures. Resolution of left maxillary, sphenoidal, and bilateral frontal mucosal thickening and opacification of mastoid air cells on left side at present study. IMPRESSION: Unremarkable study with no evidence of intraxial or extraxial hematomas, and no evidence of cortical territorial ischemic infarcts by CT criteria. Electronically Signed by: Sky Garcia MD. (08/13/2023 20:58:14 EST)
[2023-08-13 22:22] LABS: Appearance Clear (Clear); Bacteria None Seen /HPF (None Seen); Bilirubin Negative (Negative); Blood Negative (Negative); Epithelial Cells Rare /HPF (None Seen); Glucose, Urine Negative (Negative); Hyaline Casts NONE SEEN /LPF (0-2); Ketones Negative (Negative); Leukocyte Esterase Moderate (Negative); Nitrite Negative (Negative); Protein,Urine Dip Negative (Negative); RBC 0-2 /HPF (0-5); Specific Gravity <=1.005 (1.005-1.030); Urobilinogen 0.2 mg/dL (0.2)
[2023-08-13 22:23] LABS: ADD URINE CULTURE? NO (NO)
[2023-08-13 22:33] LABS: Amphetamine,Urine NEGATIVE (NEGATIVE); Barbiturate,Urine NEGATIVE (NEGATIVE); Benzodiazepine,Urine NEGATIVE (NEGATIVE); Cocaine,Urine NEGATIVE (NEGATIVE); Methadone,Urine NEGATIVE (NEGATIVE); Opiate,Urine NEGATIVE (NEGATIVE); PCP,Urine NEGATIVE (NEGATIVE); THC,Urine POSITIVE (NEGATIVE)
[2023-08-13] MEDS ORDERED: Macrobid 100MG Capsule PO ONE (22:34)
[2023-08-13] MEDS ORDERED: Macrobid 100MG Capsule ONE (22:36)
[2023-08-13 23:03] VITALS: BP 121/89; PULSE 73; RESP 13
[2023-08-13 23:12] VITALS: O2SAT 99
--- NOTE | 2023-08-14 08:40 | XRAY ---
Indication: Palpitations. Comparison: August 11, 2023 PA/lateral chest remains hyperinflated again with minimal left base pleural tenting. Remaining heart and lungs unremarkable. No new/acute findings.
== END 2023-08-13 23:37 | disposition home or self-care (01) ==
LOC: ED 18:34
DX: N39.0 Urinary tract infection, site not specified (principal); R00.2 Palpitations; R53.1 Weakness; R20.0 Anesthesia of skin; F12.90 Cannabis use, unspecified, uncomplicated; Z79.899 Other long term (current) drug therapy; Z28.310 Unvaccinated for COVID-19; Z72.0 Tobacco use
CPT/HCPCS: 36000; 36415; 70450; 71046; 80053; 80307; 81001; 82150; 83690; 83735; 84484; 84703; 85025; 86308; 93005; 99284; A9270-GY

== ENCOUNTER 2023-08-19 13:52 | Observation (INO) | payer OTHER ==
--- NOTE | 2023-08-19 14:06 | ERPHSYRPT ---
- History of Present Illness Time Seen by Provider: 08/19/23 14:05 Source: patient, family, EMS Exam Limitations: no limitations Patient Subjective Stated Complaint: pt here for numbness and lack of coordination for about an hour now when she woke up from nap, no injury, she is states she took pain pill and antibotics today. 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 The pt had onset of numbness today and weakness and called EMS. THere is a Hx of alcohol use so wernikes is a concern. We called a stroke alert and teleneuro CT stat after discussion of risks/benefits with pt and family including other labs B1, B12, Folate, HCG, Mg, CMP, CBC, Lactate, Lipase, UA, Urine triage, TSH, T4, and they wish to proceed. These are ordered. Results discussed with pt and family. Hx was confirmed independently from family and EMS as sources. No signs of trauma. Timing/Duration: today Severity: moderate Character of Deficits: altered sensation, general (difuse), other (ataxia) Deficits: cannot walk, falling, decrease ability to stand, decrease ability to walk Baseline/Normal Cognition: alert oriented x 3 Current Cognition: alert oriented x 3 Baseline Gait: walks w/o assistance Associated Symptoms: trouble walking Allergies/Adverse Reactions: azithromycin [From Zithromax] Adverse Reaction (Intermediate, Verified 08/19/23 13:53) Vomiting steroids Allergy (Severe, Uncoded 08/19/23 13:53) Swelling Home Medications: Gabapentin 600 mg PO BID 06/27/22 [History] Nitrofurantoin Macro 100 mg [Macrobid 100MG Capsule] 100 mg PO BID 0 08/19/23 [History] Hx Tetanus, Diphtheria Vaccination/Date Given: No (unknown) Hx Influenza Vaccination/Date Given: No Hx Pneumococcal Vaccination/Date Given: No Immunizations Up to Date: Yes Travel Risk - International Travel Have you traveled outside of the country in past 3 weeks: No - Coronavirus Screening Are you exhibiting any of the following symptoms?: No Close contact with a COVID-19 positive Pt in past 14-21 Days: No - Vaccine Status Have you recieved a Covid-19 vaccination: No - Review of Systems Constitutional: No Fever, No Chills Eyes: No Symptoms Ears, Nose, & Throat: No Symptoms Respiratory: No Cough, No Dyspnea Cardiac: No Chest Pain, No Edema, No Syncope Abdominal/Gastrointestinal: No Abdominal Pain, No Nausea, No Vomiting, No Diarrhea Genitourinary Symptoms: No Dysuria Musculoskeletal: No Back Pain, No Neck Pain Skin: No Rash Neurological: Sensory Changes, Other (incoordination), No Dizziness, No Focal Weakness Psychological: No Symptoms Endocrine: No Symptoms Hematologic/Lymphatic: No Symptoms Immunological/Allergic: No Symptoms All Other Systems: Reviewed and Negative - Past Medical History Pertinent Past Medical History: Yes Neurological History: Peripheral Neuropathy, Other ENT History: No Pertinent History Cardiac History: No Pertinent History Respiratory History: No Pertinent History Endocrine Medical History: Other Musculoskeletal History: Fractures, Other GI Medical History: No Pertinent History History: Other Psycho-Social History: Anxiety Female Reproductive Disorders: No Pertinent History Other Medical History: acute kidney failure, broken R pinky toe, tubal ligation, appendectomy, rhinoplasty, B Carpal Tunnel Syndrome, B wrist pain, CRPS (lower limb), fibromyalgia, insomnia, anxiety, depression - Past Surgical History Past Surgical History: Yes Neuro Surgical History: No Pertinent History Cardiac: No Pertinent History Respiratory: No Pertinent History Gastrointestinal: Appendectomy Genitourinary: No Pertinent History Musculoskeletal: No Pertinent History, Other Female Surgical History: Tubal Ligation Other Surgical History: rhinoplasty. bilat carpal tunnel surgery, bilat wrist surgery - Social History Smoking Status: Current every day smoker How long have you smoked: 16 Exposure to second hand smoke: Yes Drug Use: other Patient Lives Alone: Yes - Female History Hx Last Menstrual Period: post Hx Now: No - Nursing Vital Signs Nursing Vital Signs: Initial Vital Signs Temperature 97.0 F 08/19/23 14:04 Pulse Rate 82 08/19/23 14:04 Respiratory Rate 20 08/19/23 14:04 Blood Pressure 119/85 08/19/23 14:04 O2 Sat by Pulse Oximetry 97 08/19/23 14:04 Pain Scale Pain Intensity 4 - [place] Coma Scale Best Eye Response ([place]): (4) open spontaneously Best Verbal Response ([place]): (5) oriented Best Motor Response ([place]): (6) obeys commands Kirt Total: 15 - Physical Exam General Appearance: no apparent distress, alert Eye Exam: bilateral eye: PERRL, EOMI Ears, Nose, Throat Exam: normal ENT inspection, moist mucous membranes Neck Exam: normal inspection, non-tender, supple Respiratory: normal breath sounds, lungs clear, airway intact, No respiratory distress Cardiovascular: regular rate/rhythm, No edema Gastrointestinal: soft, No tenderness, No distention Pelvic Exam: deferred Rectal Exam: deferred Back Exam: normal inspection Extremity Exam: normal inspection, No pedal edema Peripheral Pulses: carotid (R): 2+, carotid (L): 2+, femoral (R): 2+, femoral (L): 2+, dorsalis-pedis (R): 2+, dorsalis-pedis (L): 2+ Mental Status: alert, 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 Exam: normal speech, PERRL, tongue midline Coordination/Gait: abnormal gait Motor/Sensory: no motor deficit DTR: bicep (R): 2+, bicep (L): 2+, tricep (R): 2+, tricep (L): 2+, knee (R): 2+, knee (L): 2+, ankle (R): 2+, ankle (L): 2+ Skin Exam: normal color, warm, dry, No rash SpO2 Interpretation: normal SpO2: 97 O2 Delivery: Room Air - Course Nursing assessment & vital signs reviewed: Yes Ordered Tests: Active Orders 24 hr Category Date Time Status 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 Care 08/19/23 14:25 Active EKG-ER Only STAT Care 08/19/23 14:22 Active IV Insertion STAT Care 08/19/23 14:22 Active IV Insertion-2nd Peripheral STAT Care 08/19/23 14:29 Active NPO (ED) STAT Care 08/19/23 14:24 Active NPO (ED) STAT Care 08/19/23 14:25 Active POCT Glucose Check STAT Care 08/19/23 14:14 Active Pulse Oximetry (ED) STAT Care 08/19/23 14:24 Active cath [Cath for Specimen-Straight] STAT Care 08/19/23 14:38 Active Tele-Health Consult ROUTINE Cons 08/19/23 14:26 Active HEAD WITHOUT CONTRAST [CT] Stat Exams 08/19/23 14:08 Completed CBC W DIFF Stat Lab 08/19/23 14:22 Completed CMP Stat Lab 08/19/23 15:00 Completed CULTURE,URINE Stat Lab 08/19/23 14:39 Received ETHYL ALCOHOL Stat Lab 08/19/23 15:00 Completed Folate (Folic Acid) Stat Lab 08/19/23 15:23 Completed HCG QUALITATIVE, SERUM Stat Lab 08/19/23 15:00 Completed LIPASE Stat Lab 08/19/23 15:00 Completed Lactic Acid Stat Lab 08/19/23 14:50 Completed MAGNESIUM Stat Lab 08/19/23 15:00 Completed POCT GLUCOSE Stat Lab 08/19/23 14:13 Completed T4 (Thyroxine) Stat Lab 08/19/23 15:00 Completed TSH, 3RD Generation Stat Lab 08/19/23 15:00 Completed UA W/RFX UR CULTURE Stat Lab 08/19/23 14:38 Completed Urine Triage Profile Stat Lab 08/19/23 14:38 Completed Vitamin B12 Stat Lab 08/19/23 15:23 Completed Medication Summary Generic Name Dose Route Start Last Admin Trade Name Freq PRN Reason Stop Dose Admin Thiamine HCl 100 mg/ 1,000 mls @ 100 mls/hr 08/19/23 15:15 08/19/23 15:34 Multivitamins/Minerals 10 ml/ IV 09/18/23 15:14 100 mls/hr Folic Acid 1 mg/ Sodium .Q10H JULIANNA Administration Chloride Discontinued Medications Generic Name Dose Route Start Last Admin Trade Name Freq PRN Reason Stop Dose Admin Hydrocodone Bitart/Acetaminophen 2 tab 08/19/23 16:50 08/19/23 16:58 Hydrocodone/Apap 5/325 1 Tab Tablet PO 08/19/23 16:51 2 tab STAT ONE Administration Hydrocodone Bitart/Acetaminophen Confirm 08/19/23 16:56 Hydrocodone/Apap 5/325 1 Tab Tablet Administered 08/19/23 16:57 Dose 2 tab .ROUTE .STK-MED ONE Sodium Chloride 1,000 mls @ 999 mls/hr 08/19/23 14:22 08/19/23 15:31 Sodium Chloride 0.9% 1000 Ml IV 08/19/23 15:22 Infused .Q1H1M STA Infusion Sodium Chloride Confirm 08/19/23 14:29 Sodium Chloride 0.9% 1000 Ml Administered 08/19/23 14:30 Dose 1,000 mls @ ud .ROUTE .STK-MED ONE Thiamine HCl 100 mg 08/19/23 15:08 08/19/23 15:19 Thiamine Hcl 200 Mg/2 Ml Vial IV 08/19/23 15:09 100 mg STAT ONE Administration Thiamine HCl Confirm 08/19/23 15:18 Thiamine Hcl 200 Mg/2 Ml Vial Administered 08/19/23 15:19 Dose 200 mg .ROUTE .STK-MED ONE Lab/Rad Data: Laboratory Result Diagrams 08/19/23 14:22 08/19/23 15:00 Laboratory Results 08/19/23 08/19/23 08/19/23 Range/Units 15:23 15:00 15:00 WBC (4.0-10.5) x10^3/uL RBC (4.1-5.4) x10^6/uL Hgb (12.0-16.0) g/dL Hct (35-47) % MCV (78-100) fL MCH (26-32) pg MCHC (32-36) g/dL RDW (11.5-14.0) % Plt Count (150-450) x10^3/uL MPV (7.5-11.0) fL Gran % (36.0-66.0) % Immature Gran % (Auto) (0.00-0.4) % Nucleat RBC Rel Count (0.00-0.1) % Eos # (Auto) (0-0.5) x10^3/uL Immature Gran # (Auto) (0.00-0.03) x10^3u/L Absolute Lymphs (auto) (1.0-4.6) x10^3/uL Absolute Monos (auto) (0.0-1.3) x10^3/uL Absolute Nucleated RBC (0.00-0.01) x10^3u/L Lymphocytes % (24.0-44.0) % Monocytes % (0.0-12.0) % Eosinophils % (0.00-5.0) % Basophils % (0.0-0.4) % Absolute Granulocytes (1.4-6.9) x10^3/uL Basophils # (0-0.4) x10^3/uL Sodium 134 L (137-145) mmol/L Potassium 3.6 (3.5-5.1) mmol/L Chloride 111 H (98-107) mmol/L Carbon Dioxide 19 L (22-30) mmol/L Anion Gap 8.4 (5-15) MEQ/L BUN 5 L (7-17) mg/dL Creatinine 0.43 L (0.52-1.04) mg/dL Estimated GFR 124.5 ML/MIN Glucose 88 (74-106) mg/dL POC Glucometer (74 to 106) mg/dL Lactic Acid (0.4-2.0) Calcium 8.0 L (8.4-10.2) mg/dL Magnesium 1.9 (1.6-2.3) mg/dL Total Bilirubin 0.70 (0.2-1.3) mg/dL AST 111 H (14-36) U/L ALT 18 (0-35) U/L Alkaline Phosphatase 144 H (38-126) U/L Serum Total Protein 5.8 L (6.3-8.2) g/dL Albumin 2.9 L (3.5-5.0) g/dL Lipase 43 (23-300) U/L Vitamin B12 721 (239-931) pg/mL Folic Acid 2.23 L (2.76 - >20) ng/mL Thyroxine (T4) 7.66 (5.53-10.96) ug/dL TSH 3rd Generation 1.470 (0.47-4.68) mIU/L Serum HCG, Qual NEGATIVE (NEGATIVE) Urine Color (Yellow) Urine Appearance (Clear) Urine pH (4.6-8.0) Ur Specific [place] (1.005-1.030) Urine Protein (Negative) Urine Glucose (UA) (Negative) mg/dL Urine Ketones (Negative) Urine Blood (Negative) Urine Nitrite (Negative) Urine Bilirubin (Negative) Urine Urobilinogen (0.2) mg/dL Ur Leukocyte Esterase (Negative) U Hyaline Cast (Auto) (0-2) /LPF Urine Microscopic RBC (0-5) /HPF Urine Microscopic WBC (0-5) /HPF Ur Epithelial Cells (None Seen) /HPF Urine Bacteria (None Seen) /HPF Urine Culture Reflexed (NO) Urine Opiates Level (NEGATIVE) Ur Methadone (NEGATIVE) Urine Barbiturates (NEGATIVE) Ur Phencyclidine (PCP) (NEGATIVE) Urine Amphetamine (NEGATIVE) U Benzodiazepine Level (NEGATIVE) Urine Cocaine (NEGATIVE) Urine Marijuana (THC) (NEGATIVE) Ethyl Alcohol < 10 (0-10) mg/dL 08/19/23 08/19/23 08/19/23 Range/Units 14:50 14:38 14:38 WBC (4.0-10.5) x10^3/uL RBC (4.1-5.4) x10^6/uL Hgb (12.0-16.0) g/dL Hct (35-47) % MCV (78-100) fL MCH (26-32) pg MCHC (32-36) g/dL RDW (11.5-14.0) % Plt Count (150-450) x10^3/uL MPV (7.5-11.0) fL Gran % (36.0-66.0) % Immature Gran % (Auto) (0.00-0.4) % Nucleat RBC Rel Count (0.00-0.1) % Eos # (Auto) (0-0.5) x10^3/uL Immature Gran # (Auto) (0.00-0.03) x10^3u/L Absolute Lymphs (auto) (1.0-4.6) x10^3/uL Absolute Monos (auto) (0.0-1.3) x10^3/uL Absolute Nucleated RBC (0.00-0.01) x10^3u/L Lymphocytes % (24.0-44.0) % Monocytes % (0.0-12.0) % Eosinophils % (0.00-5.0) % Basophils % (0.0-0.4) % Absolute Granulocytes (1.4-6.9) x10^3/uL Basophils # (0-0.4) x10^3/uL Sodium (137-145) mmol/L Potassium (3.5-5.1) mmol/L Chloride (98-107) mmol/L Carbon Dioxide (22-30) mmol/L Anion Gap (5-15) MEQ/L BUN (7-17) mg/dL Creatinine (0.52-1.04) mg/dL Estimated GFR ML/MIN Glucose (74-106) mg/dL POC Glucometer (74 to 106) mg/dL Lactic Acid 2.1 H (0.4-2.0) Calcium (8.4-10.2) mg/dL Magnesium (1.6-2.3) mg/dL Total Bilirubin (0.2-1.3) mg/dL AST (14-36) U/L ALT (0-35) U/L Alkaline Phosphatase (38-126) U/L Serum Total Protein (6.3-8.2) g/dL Albumin (3.5-5.0) g/dL Lipase (23-300) U/L Vitamin B12 (239-931) pg/mL Folic Acid (2.76 - >20) ng/mL Thyroxine (T4) (5.53-10.96) ug/dL TSH 3rd Generation (0.47-4.68) mIU/L Serum HCG, Qual (NEGATIVE) Urine Color Dark Yellow A (Yellow) Urine Appearance Clear (Clear) Urine pH 6.0 (4.6-8.0) Ur Specific [place] 1.015 (1.005-1.030) Urine Protein Negative (Negative) Urine Glucose (UA) Negative (Negative) mg/dL Urine Ketones 40 A (Negative) Urine Blood Negative (Negative) Urine Nitrite Negative (Negative) Urine Bilirubin Small A (Negative) Urine Urobilinogen 1.0 A (0.2) mg/dL Ur Leukocyte Esterase Negative (Negative) U Hyaline Cast (Auto) NONE SEEN (0-2) /LPF Urine Microscopic RBC 0-2 (0-5) /HPF Urine Microscopic WBC 0-2 (0-5) /HPF Ur Epithelial Cells None Seen (None Seen) /HPF Urine Bacteria None Seen (None Seen) /HPF Urine Culture Reflexed NO (NO) Urine Opiates Level POSITIVE A (NEGATIVE) Ur Methadone NEGATIVE (NEGATIVE) Urine Barbiturates NEGATIVE (NEGATIVE) Ur Phencyclidine (PCP) NEGATIVE (NEGATIVE) Urine Amphetamine NEGATIVE (NEGATIVE) U Benzodiazepine Level NEGATIVE (NEGATIVE) Urine Cocaine NEGATIVE (NEGATIVE) Urine Marijuana (THC) POSITIVE A (NEGATIVE) Ethyl Alcohol (0-10) mg/dL 08/19/23 08/19/23 Range/Units 14:22 14:13 WBC 5.3 (4.0-10.5) x10^3/uL RBC 3.19 L (4.1-5.4) x10^6/uL Hgb 11.5 L (12.0-16.0) g/dL Hct 34.8 L (35-47) % MCV 109.1 H (78-100) fL MCH 36.1 H (26-32) pg MCHC 33.0 (32-36) g/dL RDW 17.9 H (11.5-14.0) % Plt Count 399 (150-450) x10^3/uL MPV 10.3 (7.5-11.0) fL Gran % 53.6 (36.0-66.0) % Immature Gran % (Auto) 0.6 H (0.00-0.4) % Nucleat RBC Rel Count 0.0 (0.00-0.1) % Eos # (Auto) 0.08 (0-0.5) x10^3/uL Immature Gran # (Auto) 0.03 (0.00-0.03) x10^3u/L Absolute Lymphs (auto) 1.77 (1.0-4.6) x10^3/uL Absolute Monos (auto) 0.52 (0.0-1.3) x10^3/uL Absolute Nucleated RBC 0.00 (0.00-0.01) x10^3u/L Lymphocytes % 33.1 (24.0-44.0) % Monocytes % 9.7 (0.0-12.0) % Eosinophils % 1.5 (0.00-5.0) % Basophils % 1.5 (0.0-0.4) % Absolute Granulocytes 2.86 (1.4-6.9) x10^3/uL Basophils # 0.08 (0-0.4) x10^3/uL Sodium (137-145) mmol/L Potassium (3.5-5.1) mmol/L Chloride (98-107) mmol/L Carbon Dioxide (22-30) mmol/L Anion Gap (5-15) MEQ/L BUN (7-17) mg/dL Creatinine (0.52-1.04) mg/dL Estimated GFR ML/MIN Glucose (74-106) mg/dL POC Glucometer 95 (74 to 106) mg/dL Lactic Acid (0.4-2.0) Calcium (8.4-10.2) mg/dL Magnesium (1.6-2.3) mg/dL Total Bilirubin (0.2-1.3) mg/dL AST (14-36) U/L ALT (0-35) U/L Alkaline Phosphatase (38-126) U/L Serum Total Protein (6.3-8.2) g/dL Albumin (3.5-5.0) g/dL Lipase (23-300) U/L Vitamin B12 (239-931) pg/mL Folic Acid (2.76 - >20) ng/mL Thyroxine (T4) (5.53-10.96) ug/dL TSH 3rd Generation (0.47-4.68) mIU/L Serum HCG, Qual (NEGATIVE) Urine Color (Yellow) Urine Appearance (Clear) Urine pH (4.6-8.0) Ur Specific [place] (1.005-1.030) Urine Protein (Negative) Urine Glucose (UA) (Negative) mg/dL Urine Ketones (Negative) Urine Blood (Negative) Urine Nitrite (Negative) Urine Bilirubin (Negative) Urine Urobilinogen (0.2) mg/dL Ur Leukocyte Esterase (Negative) U Hyaline Cast (Auto) (0-2) /LPF Urine Microscopic RBC (0-5) /HPF Urine Microscopic WBC (0-5) /HPF Ur Epithelial Cells (None Seen) /HPF Urine Bacteria (None Seen) /HPF Urine Culture Reflexed (NO) Urine Opiates Level (NEGATIVE) Ur Methadone (NEGATIVE) Urine Barbiturates (NEGATIVE) Ur Phencyclidine (PCP) (NEGATIVE) Urine Amphetamine (NEGATIVE) U Benzodiazepine Level (NEGATIVE) Urine Cocaine (NEGATIVE) Urine Marijuana (THC) (NEGATIVE) Ethyl Alcohol (0-10) mg/dL - Progress Progress: improved, re-examined Progress Note: 08/19/23 18:[address] Spicer hospitalist and discussed teleneuro recs and he agreed best to place pt in for obs and w/u ataxia. Discussed with : Other (dr spicer) Will see patient in: hospital (observation) Counseled pt/family regarding: lab results, diagnosis, need for follow-up, rad results Medical Desision Making - Independent Historian Additional History obtained from: Family - Discussion of managment Care discussed with:: hospitalist Reviewed:: Test results, Need for additional workup Agreed on:: Treatment plan, need for follow-up, decision to admit, place in obs - Diagnostic Testing Diagnostic test were ordered, analyzed, and reviewed by me: Yes Radiological Interpretation: Reviewed by me, Teleradiologist Report - Risk of complications The pt has a high risk of morbidity or mortality based on: Decision regarding hospitilization or escalation of hosp level of care - Departure Departure Disposition: Observation Clinical Impression: Ataxia/ inability to walk safely Condition: Good Critical Care Time: No Referrals: SRAA MELLO MD [Primary Care Provider] - Follow up/PCP as directed
[2023-08-19] MEDS ORDERED: Sodium Chloride 0.9% 1000 ML 1,000 ML IV STA (14:22)
[2023-08-19] MEDS ORDERED: Sodium Chloride 0.9% 1000 ML 1,000 ML ONE (14:29)
--- NOTE | 2023-08-19 14:48 | XRAY ---
CLINICAL HISTORY: numbness/weakness TECHNIQUE: Multiple unenhanced axial sections were acquired without IV contrast administration. Coronal and sagittal images also acquired and submitted for interpretation. COMPARISON: The previous CT scan dated 08/13/2023 is compared. FINDINGS: Normal johnston and white matter differentiation. No cerebral infarct seen. No evidence of subdural, epidural or subarachnoid collection. No intra-parenchymal or intra-ventricular hemorrhage was seen. No hydrocephalus or midline shift was identified. The posterior fossa grossly appears unremarkable. Visualized para nasal sinuses, mastoid air cells and orbits show no gross abnormality. On bone window settings, no fracture was seen in the skull vault. IMPRESSION: 1. Unremarkable study with no evidence of intraxial or extraxial hematomas, and no evidence of cortical territorial/ ischemic infarcts by CT criteria. If still clinically warranted would recommend MRI. 2. No interval change in comparison to the previous CT scan Electronically Signed by: Sky Garcia MD. (08/19/2023 14:44:51 EST)
[2023-08-19 15:04] LABS: Absolute Neutrophil Ct (ANC) 2.86 x10^3/uL (1.4-6.9); BASOPHIL % 1.5 % (0.0-0.4); Basophil (Absolute #) 0.08 x10^3/uL (0-0.4); Eosinophil % 1.5 % (0.00-5.0); Eosinophil (Absolute #) 0.08 x10^3/uL (0-0.5); Hematocrit 34.8 % (35-47); Hemoglobin 11.5 g/dL (12.0-16.0); IMMATURE GRAN # 0.03 x10^3u/L (0.00-0.03); IMMATURE GRAN % 0.6 % (0.00-0.4); Lymphocyte (Absolute #) 1.77 x10^3/uL (1.0-4.6); Lymphocytes % 33.1 % (24.0-44.0); Mean Cell Volume 109.1 fL (78-100); Mean Corpuscular Hemoglobin 36.1 pg (26-32); Mean Platelet Volume 10.3 fL (7.5-11.0); Monocyte (Absolute #) 0.52 x10^3/uL (0.0-1.3); Monocytes % 9.7 % (0.0-12.0); Neutrophil % 53.6 % (36.0-66.0); Platelet Count 399 x10^3/uL (150-450); Red Blood Count 3.19 x10^6/uL (4.1-5.4); Red Cell Distribution Width 17.9 % (11.5-14.0); White Blood Count 5.3 x10^3/uL (4.0-10.5)
[2023-08-19] MEDS ORDERED: THIAMINE 200 MG/2 ML IV ONE (15:08)
[2023-08-19] MEDS ORDERED: THIAMINE 200 MG/2 ML*** 100 MG, Vitamins For Infusion 10 ML INJECTION*** 10 ML, FOLNATE... IV SCH ×4 (15:15)
[2023-08-19] MEDS ORDERED: THIAMINE 200 MG/2 ML ONE (15:18)
[2023-08-19 15:22] LABS: ADD URINE CULTURE? NO (NO); Appearance Clear (Clear); Bacteria None Seen /HPF (None Seen); Bilirubin Small (Negative); Blood Negative (Negative); Epithelial Cells None Seen /HPF (None Seen); Glucose, Urine Negative (Negative); Hyaline Casts NONE SEEN /LPF (0-2); Ketones 40 (Negative); Leukocyte Esterase Negative (Negative); Nitrite Negative (Negative); Protein,Urine Dip Negative (Negative); RBC 0-2 /HPF (0-5); Specific Gravity 1.015 (1.005-1.030); WBC 0-2 /HPF (0-5)
[2023-08-19 15:36] LABS: Amphetamine,Urine NEGATIVE (NEGATIVE); Barbiturate,Urine NEGATIVE (NEGATIVE); Benzodiazepine,Urine NEGATIVE (NEGATIVE); Cocaine,Urine NEGATIVE (NEGATIVE); Methadone,Urine NEGATIVE (NEGATIVE); Opiate,Urine POSITIVE (NEGATIVE); PCP,Urine NEGATIVE (NEGATIVE); THC,Urine POSITIVE (NEGATIVE)
[2023-08-19 15:48] LABS: ALBUMIN 2.9 g/dL (3.5-5.0); ALKALINE PHOSPHATASE 144 U/L (38-126); ANION GAP 8.4 MEQ/L (5-15); BLOOD UREA NITROGEN 5 mg/dL (7-17); CHLORIDE 111 mmol/L (98-107); Carbon Dioxide 19 mmol/L (22-30); Creatinine 1 0.43 mg/dL (0.52-1.04); EST GLOMERULAR FILTRATION RATE 124.5 ML/MIN; ETHYL ALCOHOL < 10 mg/dL (0-10); Glucose 88 mg/dL (74-106); LIPASE 43 U/L (23-300); MAGNESIUM 1.9 mg/dL (1.6-2.3); Potassium 3.6 mmol/L (3.5-5.1); SGOT/AST 111 U/L (14-36); SGPT/ALT 18 U/L (0-35); SODIUM 134 mmol/L (137-145); T4 (Thyroxine) 7.66 ug/dL (5.53-10.96); Total Protein 5.8 g/dL (6.3-8.2)
[2023-08-19 15:51] LABS: HCG SERUM TEST NEGATIVE (NEGATIVE)
[2023-08-19] MEDS ORDERED: NORCO 5/325 MG PO ONE ×2 (16:50→19:40)
[2023-08-19 16:51] LABS: Folate (Folic Acid) 2.23 ng/mL (2.76 - >20)
[2023-08-19] MEDS ORDERED: NORCO 5/325 MG ONE ×2 (16:56→19:42)
--- NOTE | 2023-08-19 20:38 | PCM.HP ---
History of Present Illness - Chief Complaint Chief Complaint: ataxia with fall risk Date: 08/19/23 History of Present Illness: Ms. Cotton is a 43 year old female with a past medical history significant for neuropathy and chronic EtOH/marijuana use who stopped about a week ago but presents to the hospital with complaints of whole body numbness with some dysarthria after awakening from an afternoon nap. She was seen by neurology and is being worked up for CVA versus Wernickes encephalopathy. She was evaluated in the ER, given IVFs and has improved mentation. She takes Gabapentin on a regular basis but cannot recall if she took extra accidentally. She is resting in bed, awake/alert. She denies any nausea, vomiting or diarrhea. She denies any fever, chills, lightheadedness or dizziness. No chest pain or shortness of breath. - Review of Systems Constitutional: Lethargy, No Fever, No Chills Ears, Nose, & Throat: No Nose Discharge, No Sinus Drainage Respiratory: No Orthopnea, No Short Of Breath Cardiac: Other, No Chest Pain, No Edema Abdominal/Gastrointestinal: No Abdominal Pain, No Nausea, No Vomiting, No Diarrhea Genitourinary Symptoms: No Dysuria, No Frequency, No Hematuria Musculoskeletal: No Arthralgias, No Back Pain Neurological: No Dizziness, No Focal Weakness, No Gait Changes, No Headache Psychological: Alcohol Abuse, Drug Abuse Endocrine: No Polyuria, No Polydipsia Hematologic/Lymphatic: No Blood Clots Medications & Allergies Home Medications: Home Medication List Gabapentin 600 mg PO BID 06/27/22 [History Confirmed 08/19/23] Nitrofurantoin Macro 100 mg [Macrobid 100MG Capsule] 100 mg PO BID 08/19/23 [History Confirmed 08/19/23] Allergies/Adverse Reactions: Allergies Allergy/AdvReac Type Severity Reaction Status Date / Time azithromycin [From Zithromax] AdvReac Intermediate Vomiting Verified 08/19/23 13:53 steroids Allergy Severe Swelling Uncoded 08/19/23 13:53 - Past Medical History Past Medical History: Yes Neurological History: Peripheral Neuropathy, Other ENT History: No Pertinent History Cardiac History: No Pertinent History Respiratory History: No Pertinent History Endocrine Medical History: Other Musculoskelatal History: Fractures, Other GI Medical History: No Pertinent History History: Other Pyscho-Social History: Anxiety Reproductive Disorders: No Pertinent History Comment: acute kidney failure, broken R pinky toe, tubal ligation, appendectomy, rhinoplasty, B Carpal Tunnel Syndrome, B wrist pain, CRPS (lower limb), fibromyalgia, insomnia, anxiety, depression - Female History Hx Last Menstrual Period: post Are you now?: No - Past Surgical History Past Surgical History: Yes Neuro Surgical History: No Pertinent History Cardiac History: No Pertinent History Respiratory Surgery: No Pertinent History GI Surgical History: Appendectomy Genitourinary Surgical Hx: No Pertinent History Musculskeletal Surgical Hx: No Pertinent History, Other Female Surgical History: Tubal Ligation Other Surgical History: rhinoplasty. bilat carpal tunnel surgery, bilat wrist surgery - Social History Smoking Status: Current every day smoker How long have you smoked: 16 Exposure to second hand smoke: Yes Alcohol: Daily Drug Use: other - Physical Exam Vital Signs: Vital Signs - 24 hr Temp Pulse Resp BP BP Pulse Ox 08/19/23 19:01 120/103 08/19/23 18:50 97 08/19/23 18:31 139/118 08/19/23 18:01 134/56 08/19/23 17:31 139/101 08/19/23 17:01 144/100 08/19/23 16:30 82 21 133/89 08/19/23 16:01 79 17 135/103 100 08/19/23 15:30 74 15 151/104 08/19/23 15:00 80 16 125/94 99 08/19/23 14:30 74 19 125/94 98 08/19/23 14:04 97.0 F 82 20 119/85 97 General Appearance: no apparent distress Neurologic Exam: alert, cooperative Ears, Nose, Throat Exam: dry mucous membranes Neck Exam: supple Respiratory Exam: No respiratory distress, No rhonchi, No stridor Cardiovascular Exam: regular rate/rhythm Extremity Exam: No pedal edema, No swelling Skin Exam: normal color, warm, dry, No rash Results - Labs Lab/Micro Results: Lab Results-Last 24 Hours 08/19/23 08/19/23 08/19/23 Range/Units 14:13 14:22 14:38 WBC 5.3 (4.0-10.5) x10^3/uL RBC 3.19 L (4.1-5.4) x10^6/uL Hgb 11.5 L (12.0-16.0) g/dL Hct 34.8 L (35-47) % MCV 109.1 H (78-100) fL MCH 36.1 H (26-32) pg MCHC 33.0 (32-36) g/dL RDW 17.9 H (11.5-14.0) % Plt Count 399 (150-450) x10^3/uL MPV 10.3 (7.5-11.0) fL Gran % 53.6 (36.0-66.0) % Immature Gran % (Auto) 0.6 H (0.00-0.4) % Nucleat RBC Rel Count 0.0 (0.00-0.1) % Eos # (Auto) 0.08 (0-0.5) x10^3/uL Immature Gran # (Auto) 0.03 (0.00-0.03) x10^3u/L Absolute Lymphs (auto) 1.77 (1.0-4.6) x10^3/uL Absolute Monos (auto) 0.52 (0.0-1.3) x10^3/uL Absolute Nucleated RBC 0.00 (0.00-0.01) x10^3u/L Lymphocytes % 33.1 (24.0-44.0) % Monocytes % 9.7 (0.0-12.0) % Eosinophils % 1.5 (0.00-5.0) % Basophils % 1.5 (0.0-0.4) % Absolute Granulocytes 2.86 (1.4-6.9) x10^3/uL Basophils # 0.08 (0-0.4) x10^3/uL Sodium (137-145) mmol/L Potassium (3.5-5.1) mmol/L Chloride (98-107) mmol/L Carbon Dioxide (22-30) mmol/L Anion Gap (5-15) MEQ/L BUN (7-17) mg/dL Creatinine (0.52-1.04) mg/dL Estimated GFR ML/MIN Glucose (74-106) mg/dL POC Glucometer 95 (74 to 106) mg/dL Lactic Acid (0.4-2.0) Calcium (8.4-10.2) mg/dL Magnesium (1.6-2.3) mg/dL Total Bilirubin (0.2-1.3) mg/dL AST (14-36) U/L ALT (0-35) U/L Alkaline Phosphatase (38-126) U/L Serum Total Protein (6.3-8.2) g/dL Albumin (3.5-5.0) g/dL Lipase (23-300) U/L Vitamin B12 (239-931) pg/mL Folic Acid (2.76 - >20) ng/mL Thyroxine (T4) (5.53-10.96) ug/dL TSH 3rd Generation (0.47-4.68) mIU/L Serum HCG, Qual (NEGATIVE) Urine Color Dark Yellow A (Yellow) Urine Appearance Clear (Clear) Urine pH 6.0 (4.6-8.0) Ur Specific [place] 1.015 (1.005-1.030) Urine Protein Negative (Negative) Urine Glucose (UA) Negative (Negative) mg/dL Urine Ketones 40 A (Negative) Urine Blood Negative (Negative) Urine Nitrite Negative (Negative) Urine Bilirubin Small A (Negative) Urine Urobilinogen 1.0 A (0.2) mg/dL Ur Leukocyte Esterase Negative (Negative) U Hyaline Cast (Auto) NONE SEEN (0-2) /LPF Urine Microscopic RBC 0-2 (0-5) /HPF Urine Microscopic WBC 0-2 (0-5) /HPF Ur Epithelial Cells None Seen (None Seen) /HPF Urine Bacteria None Seen (None Seen) /HPF Urine Culture Reflexed NO (NO) Urine Opiates Level (NEGATIVE) Ur Methadone (NEGATIVE) Urine Barbiturates (NEGATIVE) Ur Phencyclidine (PCP) (NEGATIVE) Urine Amphetamine (NEGATIVE) U Benzodiazepine Level (NEGATIVE) Urine Cocaine (NEGATIVE) Urine Marijuana (THC) (NEGATIVE) Ethyl Alcohol (0-10) mg/dL 08/19/23 08/19/23 08/19/23 Range/Units 14:38 14:50 15:00 WBC (4.0-10.5) x10^3/uL RBC (4.1-5.4) x10^6/uL Hgb (12.0-16.0) g/dL Hct (35-47) % MCV (78-100) fL MCH (26-32) pg MCHC (32-36) g/dL RDW (11.5-14.0) % Plt Count (150-450) x10^3/uL MPV (7.5-11.0) fL Gran % (36.0-66.0) % Immature Gran % (Auto) (0.00-0.4) % Nucleat RBC Rel Count (0.00-0.1) % Eos # (Auto) (0-0.5) x10^3/uL Immature Gran # (Auto) (0.00-0.03) x10^3u/L Absolute Lymphs (auto) (1.0-4.6) x10^3/uL Absolute Monos (auto) (0.0-1.3) x10^3/uL Absolute Nucleated RBC (0.00-0.01) x10^3u/L Lymphocytes % (24.0-44.0) % Monocytes % (0.0-12.0) % Eosinophils % (0.00-5.0) % Basophils % (0.0-0.4) % Absolute Granulocytes (1.4-6.9) x10^3/uL Basophils # (0-0.4) x10^3/uL Sodium 134 L (137-145) mmol/L Potassium 3.6 (3.5-5.1) mmol/L Chloride 111 H (98-107) mmol/L Carbon Dioxide 19 L (22-30) mmol/L Anion Gap 8.4 (5-15) MEQ/L BUN 5 L (7-17) mg/dL Creatinine 0.43 L (0.52-1.04) mg/dL Estimated GFR 124.5 ML/MIN Glucose 88 (74-106) mg/dL POC Glucometer (74 to 106) mg/dL Lactic Acid 2.1 H (0.4-2.0) Calcium 8.0 L (8.4-10.2) mg/dL Magnesium 1.9 (1.6-2.3) mg/dL Total Bilirubin 0.70 (0.2-1.3) mg/dL AST 111 H (14-36) U/L ALT 18 (0-35) U/L Alkaline Phosphatase 144 H (38-126) U/L Serum Total Protein 5.8 L (6.3-8.2) g/dL Albumin 2.9 L (3.5-5.0) g/dL Lipase 43 (23-300) U/L Vitamin B12 (239-931) pg/mL Folic Acid (2.76 - >20) ng/mL Thyroxine (T4) 7.66 (5.53-10.96) ug/dL TSH 3rd Generation 1.470 (0.47-4.68) mIU/L Serum HCG, Qual (NEGATIVE) Urine Color (Yellow) Urine Appearance (Clear) Urine pH (4.6-8.0) Ur Specific [place] (1.005-1.030) Urine Protein (Negative) Urine Glucose (UA) (Negative) mg/dL Urine Ketones (Negative) Urine Blood (Negative) Urine Nitrite (Negative) Urine Bilirubin (Negative) Urine Urobilinogen (0.2) mg/dL Ur Leukocyte Esterase (Negative) U Hyaline Cast (Auto) (0-2) /LPF Urine Microscopic RBC (0-5) /HPF Urine Microscopic WBC (0-5) /HPF Ur Epithelial Cells (None Seen) /HPF Urine Bacteria (None Seen) /HPF Urine Culture Reflexed (NO) Urine Opiates Level POSITIVE A (NEGATIVE) Ur Methadone NEGATIVE (NEGATIVE) Urine Barbiturates NEGATIVE (NEGATIVE) Ur Phencyclidine (PCP) NEGATIVE (NEGATIVE) Urine Amphetamine NEGATIVE (NEGATIVE) U Benzodiazepine Level NEGATIVE (NEGATIVE) Urine Cocaine NEGATIVE (NEGATIVE) Urine Marijuana (THC) POSITIVE A (NEGATIVE) Ethyl Alcohol < 10 (0-10) mg/dL 08/19/23 08/19/23 Range/Units 15:00 15:23 WBC (4.0-10.5) x10^3/uL RBC (4.1-5.4) x10^6/uL Hgb (12.0-16.0) g/dL Hct (35-47) % MCV (78-100) fL MCH (26-32) pg MCHC (32-36) g/dL RDW (11.5-14.0) % Plt Count (150-450) x10^3/uL MPV (7.5-11.0) fL Gran % (36.0-66.0) % Immature Gran % (Auto) (0.00-0.4) % Nucleat RBC Rel Count (0.00-0.1) % Eos # (Auto) (0-0.5) x10^3/uL Immature Gran # (Auto) (0.00-0.03) x10^3u/L Absolute Lymphs (auto) (1.0-4.6) x10^3/uL Absolute Monos (auto) (0.0-1.3) x10^3/uL Absolute Nucleated RBC (0.00-0.01) x10^3u/L Lymphocytes % (24.0-44.0) % Monocytes % (0.0-12.0) % Eosinophils % (0.00-5.0) % Basophils % (0.0-0.4) % Absolute Granulocytes (1.4-6.9) x10^3/uL Basophils # (0-0.4) x10^3/uL Sodium (137-145) mmol/L Potassium (3.5-5.1) mmol/L Chloride (98-107) mmol/L Carbon Dioxide (22-30) mmol/L Anion Gap (5-15) MEQ/L BUN (7-17) mg/dL Creatinine (0.52-1.04) mg/dL Estimated GFR ML/MIN Glucose (74-106) mg/dL POC Glucometer (74 to 106) mg/dL Lactic Acid (0.4-2.0) Calcium (8.4-10.2) mg/dL Magnesium (1.6-2.3) mg/dL Total Bilirubin (0.2-1.3) mg/dL AST (14-36) U/L ALT (0-35) U/L Alkaline Phosphatase (38-126) U/L Serum Total Protein (6.3-8.2) g/dL Albumin (3.5-5.0) g/dL Lipase (23-300) U/L Vitamin B12 721 (239-931) pg/mL Folic Acid 2.23 L (2.76 - >20) ng/mL Thyroxine (T4) (5.53-10.96) ug/dL TSH 3rd Generation (0.47-4.68) mIU/L Serum HCG, Qual NEGATIVE (NEGATIVE) Urine Color (Yellow) Urine Appearance (Clear) Urine pH (4.6-8.0) Ur Specific [place] (1.005-1.030) Urine Protein (Negative) Urine Glucose (UA) (Negative) mg/dL Urine Ketones (Negative) Urine Blood (Negative) Urine Nitrite (Negative) Urine Bilirubin (Negative) Urine Urobilinogen (0.2) mg/dL Ur Leukocyte Esterase (Negative) U Hyaline Cast (Auto) (0-2) /LPF Urine Microscopic RBC (0-5) /HPF Urine Microscopic WBC (0-5) /HPF Ur Epithelial Cells (None Seen) /HPF Urine Bacteria (None Seen) /HPF Urine Culture Reflexed (NO) Urine Opiates Level (NEGATIVE) Ur Methadone (NEGATIVE) Urine Barbiturates (NEGATIVE) Ur Phencyclidine (PCP) (NEGATIVE) Urine Amphetamine (NEGATIVE) U Benzodiazepine Level (NEGATIVE) Urine Cocaine (NEGATIVE) Urine Marijuana (THC) (NEGATIVE) Ethyl Alcohol (0-10) mg/dL Accuchecks Date 08/19/23 Time 14:14 - Radiology Impressions Radiology Exams & Impressions: Radiology Procedures Category Date Time Status HEAD WITHOUT CONTRAST [CT] Stat Exams 08/19/23 14:08 Completed Assessment/Plan (1) Numbness Current Visit: Yes Status: Acute Assessment & Plan: Could be gabapentin excess, Wernickes, alcohol withdrawal seizures or CVA/TIA - symptoms resolved and mentation better 1. Hold Gabapentin 2. Neuro eval 3. Thiamine/folate therapy 4. Neuro checks 5. Check K, Mg, PO4 Code(s): R20.0 - ANESTHESIA OF SKIN (2) Hyponatremia Current Visit: No Status: Acute Assessment & Plan: Likely from hypovolemia with urinary ketones 1. Isotonic IVFs 2. Check TSH 3. Limit free water 4. Monitor electrolytes closely Code(s): E87.1 - HYPO-OSMOLALITY AND HYPONATREMIA (3) Lactic acidosis Current Visit: No Status: Acute Assessment & Plan: Likely from EtOH and dehydration 1. IVFs 2. Defer sodium bicarb 3. Trend lactic acid Code(s): E87.20 - ACIDOSIS, UNSPECIFIED (4) Neuropathy Current Visit: No Status: Chronic Assessment & Plan: On Gabapentin 1. Will hold Gabapentin for now given neurologic symptoms Code(s): G62.9 - POLYNEUROPATHY, UNSPECIFIED Telemedicine Encounter - Telemedicine Encounter Telemedicine Encounter: The entirety of this encounter was performed via Telemedicine"
[2023-08-19] MEDS ORDERED: Docusate Sodium 100 MG PO PRN (20:47)
[2023-08-19] MEDS ORDERED: TYLENOL 325 MG PO PRN (20:47)
[2023-08-19] MEDS ORDERED: MILK OF MAGNESIA 30 ML PO PRN (20:47)
[2023-08-19] MEDS ORDERED: Ambien 5 MG Tablet PO PRN (20:50)
[2023-08-19] MEDS ORDERED: NORCO 5/325 MG PO PRN (20:51)
[2023-08-19] MEDS ORDERED: Sodium Chloride 0.9% 1000 ML 1,000 ML IV SCH (21:00)
[2023-08-19] MEDS: Pepcid 20 MG PO SCH (22:29)
--- NOTE | 2023-08-20 05:14 | PCM.NOTE ---
Date and Time: 08/20/23 0508 Subjective Assessment: Ms. Cotton is a 43 year old female with a PMHX of neuropathy and chronic EtOH/marijuana use who stopped about a week ago but presented to ED 08/19/23 with complaints of whole body numbness with some dysarthria after awakening from an afternoon nap. She was seen by neurology and is being worked up for CVA versus Wernickes encephalopathy. She was evaluated in the ER, given IVFs and has improved mentation. She takes Gabapentin on a regular basis but cannot recall if she took extra accidentally. CT head unremarkable study with no evidence of intraxial or extraxial hematomas. Lab findings remarkable for UDS positive for opiates and THC, mildly hyponatremic at 134, carbon dioxide at 19, lactic acid at 2.1, ast 111 a;l [jps 144. OBJECTIVE DATA Vital Signs: Vital Signs - 24 hr Temp Pulse Resp BP BP Pulse Ox 08/20/23 04:00 98.2 F 88 19 117/58 97 08/20/23 00:00 70 20 98 08/19/23 20:09 97.9 F 76 17 131/64 99 08/19/23 19:01 120/103 08/19/23 18:50 97 08/19/23 18:31 139/118 08/19/23 18:01 134/56 08/19/23 17:31 139/101 08/19/23 17:01 144/100 08/19/23 16:30 82 21 133/89 08/19/23 16:01 79 17 135/103 100 08/19/23 15:30 74 15 151/104 08/19/23 15:00 80 16 125/94 99 08/19/23 14:30 74 19 125/94 98 08/19/23 14:04 97.0 F 82 20 119/85 97 Pain Assessment - Last Documented Pain Intensity 6 Pain Scale Used 0-10 Pain Scale Intake and Output: Intake & Output 08/17/23 08/18/23 08/19/23 08/20/23 11:59 11:59 11:59 11:59 Intake Total 960 Balance 960 Weight 53.7 kg Lab Results: Lab Results-Last 24 Hours 08/19/23 08/19/23 08/19/23 Range/Units 14:13 14:22 14:38 WBC 5.3 (4.0-10.5) x10^3/uL RBC 3.19 L (4.1-5.4) x10^6/uL Hgb 11.5 L (12.0-16.0) g/dL Hct 34.8 L (35-47) % MCV 109.1 H (78-100) fL MCH 36.1 H (26-32) pg MCHC 33.0 (32-36) g/dL RDW 17.9 H (11.5-14.0) % Plt Count 399 (150-450) x10^3/uL MPV 10.3 (7.5-11.0) fL Gran % 53.6 (36.0-66.0) % Immature Gran % (Auto) 0.6 H (0.00-0.4) % Nucleat RBC Rel Count 0.0 (0.00-0.1) % Eos # (Auto) 0.08 (0-0.5) x10^3/uL Immature Gran # (Auto) 0.03 (0.00-0.03) x10^3u/L Absolute Lymphs (auto) 1.77 (1.0-4.6) x10^3/uL Absolute Monos (auto) 0.52 (0.0-1.3) x10^3/uL Absolute Nucleated RBC 0.00 (0.00-0.01) x10^3u/L Lymphocytes % 33.1 (24.0-44.0) % Monocytes % 9.7 (0.0-12.0) % Eosinophils % 1.5 (0.00-5.0) % Basophils % 1.5 (0.0-0.4) % Absolute Granulocytes 2.86 (1.4-6.9) x10^3/uL Basophils # 0.08 (0-0.4) x10^3/uL Sodium (137-145) mmol/L Potassium (3.5-5.1) mmol/L Chloride (98-107) mmol/L Carbon Dioxide (22-30) mmol/L Anion Gap (5-15) MEQ/L BUN (7-17) mg/dL Creatinine (0.52-1.04) mg/dL Estimated GFR ML/MIN Glucose (74-106) mg/dL POC Glucometer 95 (74 to 106) mg/dL Lactic Acid (0.4-2.0) Calcium (8.4-10.2) mg/dL Magnesium (1.6-2.3) mg/dL Total Bilirubin (0.2-1.3) mg/dL AST (14-36) U/L ALT (0-35) U/L Alkaline Phosphatase (38-126) U/L Serum Total Protein (6.3-8.2) g/dL Albumin (3.5-5.0) g/dL Lipase (23-300) U/L Vitamin B12 (239-931) pg/mL Folic Acid (2.76 - >20) ng/mL Thyroxine (T4) (5.53-10.96) ug/dL TSH 3rd Generation (0.47-4.68) mIU/L Serum HCG, Qual (NEGATIVE) Urine Color Dark Yellow A (Yellow) Urine Appearance Clear (Clear) Urine pH 6.0 (4.6-8.0) Ur Specific [place] 1.015 (1.005-1.030) Urine Protein Negative (Negative) Urine Glucose (UA) Negative (Negative) mg/dL Urine Ketones 40 A (Negative) Urine Blood Negative (Negative) Urine Nitrite Negative (Negative) Urine Bilirubin Small A (Negative) Urine Urobilinogen 1.0 A (0.2) mg/dL Ur Leukocyte Esterase Negative (Negative) U Hyaline Cast (Auto) NONE SEEN (0-2) /LPF Urine Microscopic RBC 0-2 (0-5) /HPF Urine Microscopic WBC 0-2 (0-5) /HPF Ur Epithelial Cells None Seen (None Seen) /HPF Urine Bacteria None Seen (None Seen) /HPF Urine Culture Reflexed NO (NO) Urine Opiates Level (NEGATIVE) Ur Methadone (NEGATIVE) Urine Barbiturates (NEGATIVE) Ur Phencyclidine (PCP) (NEGATIVE) Urine Amphetamine (NEGATIVE) U Benzodiazepine Level (NEGATIVE) Urine Cocaine (NEGATIVE) Urine Marijuana (THC) (NEGATIVE) Ethyl Alcohol (0-10) mg/dL 08/19/23 08/19/23 08/19/23 Range/Units 14:38 14:50 15:00 WBC (4.0-10.5) x10^3/uL RBC (4.1-5.4) x10^6/uL Hgb (12.0-16.0) g/dL Hct (35-47) % MCV (78-100) fL MCH (26-32) pg MCHC (32-36) g/dL RDW (11.5-14.0) % Plt Count (150-450) x10^3/uL MPV (7.5-11.0) fL Gran % (36.0-66.0) % Immature Gran % (Auto) (0.00-0.4) % Nucleat RBC Rel Count (0.00-0.1) % Eos # (Auto) (0-0.5) x10^3/uL Immature Gran # (Auto) (0.00-0.03) x10^3u/L Absolute Lymphs (auto) (1.0-4.6) x10^3/uL Absolute Monos (auto) (0.0-1.3) x10^3/uL Absolute Nucleated RBC (0.00-0.01) x10^3u/L Lymphocytes % (24.0-44.0) % Monocytes % (0.0-12.0) % Eosinophils % (0.00-5.0) % Basophils % (0.0-0.4) % Absolute Granulocytes (1.4-6.9) x10^3/uL Basophils # (0-0.4) x10^3/uL Sodium 134 L (137-145) mmol/L Potassium 3.6 (3.5-5.1) mmol/L Chloride 111 H (98-107) mmol/L Carbon Dioxide 19 L (22-30) mmol/L Anion Gap 8.4 (5-15) MEQ/L BUN 5 L (7-17) mg/dL Creatinine 0.43 L (0.52-1.04) mg/dL Estimated GFR 124.5 ML/MIN Glucose 88 (74-106) mg/dL POC Glucometer (74 to 106) mg/dL Lactic Acid 2.1 H (0.4-2.0) Calcium 8.0 L (8.4-10.2) mg/dL Magnesium 1.9 (1.6-2.3) mg/dL Total Bilirubin 0.70 (0.2-1.3) mg/dL AST 111 H (14-36) U/L ALT 18 (0-35) U/L Alkaline Phosphatase 144 H (38-126) U/L Serum Total Protein 5.8 L (6.3-8.2) g/dL Albumin 2.9 L (3.5-5.0) g/dL Lipase 43 (23-300) U/L Vitamin B12 (239-931) pg/mL Folic Acid (2.76 - >20) ng/mL Thyroxine (T4) 7.66 (5.53-10.96) ug/dL TSH 3rd Generation 1.470 (0.47-4.68) mIU/L Serum HCG, Qual (NEGATIVE) Urine Color (Yellow) Urine Appearance (Clear) Urine pH (4.6-8.0) Ur Specific [place] (1.005-1.030) Urine Protein (Negative) Urine Glucose (UA) (Negative) mg/dL Urine Ketones (Negative) Urine Blood (Negative) Urine Nitrite (Negative) Urine Bilirubin (Negative) Urine Urobilinogen (0.2) mg/dL Ur Leukocyte Esterase (Negative) U Hyaline Cast (Auto) (0-2) /LPF Urine Microscopic RBC (0-5) /HPF Urine Microscopic WBC (0-5) /HPF Ur Epithelial Cells (None Seen) /HPF Urine Bacteria (None Seen) /HPF Urine Culture Reflexed (NO) Urine Opiates Level POSITIVE A (NEGATIVE) Ur Methadone NEGATIVE (NEGATIVE) Urine Barbiturates NEGATIVE (NEGATIVE) Ur Phencyclidine (PCP) NEGATIVE (NEGATIVE) Urine Amphetamine NEGATIVE (NEGATIVE) U Benzodiazepine Level NEGATIVE (NEGATIVE) Urine Cocaine NEGATIVE (NEGATIVE) Urine Marijuana (THC) POSITIVE A (NEGATIVE) Ethyl Alcohol < 10 (0-10) mg/dL 08/19/23 08/19/23 Range/Units 15:00 15:23 WBC (4.0-10.5) x10^3/uL RBC (4.1-5.4) x10^6/uL Hgb (12.0-16.0) g/dL Hct (35-47) % MCV (78-100) fL MCH (26-32) pg MCHC (32-36) g/dL RDW (11.5-14.0) % Plt Count (150-450) x10^3/uL MPV (7.5-11.0) fL Gran % (36.0-66.0) % Immature Gran % (Auto) (0.00-0.4) % Nucleat RBC Rel Count (0.00-0.1) % Eos # (Auto) (0-0.5) x10^3/uL Immature Gran # (Auto) (0.00-0.03) x10^3u/L Absolute Lymphs (auto) (1.0-4.6) x10^3/uL Absolute Monos (auto) (0.0-1.3) x10^3/uL Absolute Nucleated RBC (0.00-0.01) x10^3u/L Lymphocytes % (24.0-44.0) % Monocytes % (0.0-12.0) % Eosinophils % (0.00-5.0) % Basophils % (0.0-0.4) % Absolute Granulocytes (1.4-6.9) x10^3/uL Basophils # (0-0.4) x10^3/uL Sodium (137-145) mmol/L Potassium (3.5-5.1) mmol/L Chloride (98-107) mmol/L Carbon Dioxide (22-30) mmol/L Anion Gap (5-15) MEQ/L BUN (7-17) mg/dL Creatinine (0.52-1.04) mg/dL Estimated GFR ML/MIN Glucose (74-106) mg/dL POC Glucometer (74 to 106) mg/dL Lactic Acid (0.4-2.0) Calcium (8.4-10.2) mg/dL Magnesium (1.6-2.3) mg/dL Total Bilirubin (0.2-1.3) mg/dL AST (14-36) U/L ALT (0-35) U/L Alkaline Phosphatase (38-126) U/L Serum Total Protein (6.3-8.2) g/dL Albumin (3.5-5.0) g/dL Lipase (23-300) U/L Vitamin B12 721 (239-931) pg/mL Folic Acid 2.23 L (2.76 - >20) ng/mL Thyroxine (T4) (5.53-10.96) ug/dL TSH 3rd Generation (0.47-4.68) mIU/L Serum HCG, Qual NEGATIVE (NEGATIVE) Urine Color (Yellow) Urine Appearance (Clear) Urine pH (4.6-8.0) Ur Specific Jerome (1.005-1.030) Urine Protein (Negative) Urine Glucose (UA) (Negative) mg/dL Urine Ketones (Negative) Urine Blood (Negative) Urine Nitrite (Negative) Urine Bilirubin (Negative) Urine Urobilinogen (0.2) mg/dL Ur Leukocyte Esterase (Negative) U Hyaline Cast (Auto) (0-2) /LPF Urine Microscopic RBC (0-5) /HPF Urine Microscopic WBC (0-5) /HPF Ur Epithelial Cells (None Seen) /HPF Urine Bacteria (None Seen) /HPF Urine Culture Reflexed (NO) Urine Opiates Level (NEGATIVE) Ur Methadone (NEGATIVE) Urine Barbiturates (NEGATIVE) Ur Phencyclidine (PCP) (NEGATIVE) Urine Amphetamine (NEGATIVE) U Benzodiazepine Level (NEGATIVE) Urine Cocaine (NEGATIVE) Urine Marijuana (THC) (NEGATIVE) Ethyl Alcohol (0-10) mg/dL Radiology Exams: Radiology Procedures Category Date Time Status HEAD WITHOUT CONTRAST [CT] Stat Exams 08/19/23 14:08 Completed Assessment/Plan (1) Hyponatremia Current Visit: No Status: Acute Assessment & Plan: -Most likely secondary to hypovolemia -IVF -TSH wnl -fluid restriction -Monitor renal/lytes daily Code(s): E87.1 - HYPO-OSMOLALITY AND HYPONATREMIA (2) Alcohol dependence Current Visit: Yes Status: Acute Assessment & Plan: -Patient states she quit one week ago, alcohol level negative in ED -[facility] protocol Code(s): F10.20 - ALCOHOL DEPENDENCE, UNCOMPLICATED (3) Numbness Current Visit: Yes Status: Acute Assessment & Plan: Could be gabapentin excess, [place], alcohol withdrawal seizures or CVA/TIA - symptoms resolved and mentation better -Neurology consulted, appreciated recs -thiamine/folic acid/multi vitamin -neuro checks -Monitor renal/lytes Code(s): R20.0 - ANESTHESIA OF SKIN (4) Lactic acidosis Current Visit: No Status: Acute Assessment & Plan: -likely for hypovolemia -IVF -trend lactic Code(s): E87.20 - ACIDOSIS, UNSPECIFIED (5) Smoker Current Visit: No Status: Acute Assessment & Plan: -Advised cessation -Nicotine patch prn Code(s): F17.200 - NICOTINE DEPENDENCE, UNSPECIFIED, UNCOMPLICATED (6) Tetrahydrocannabinol (THC) dependence Current Visit: No Status: Acute Assessment & Plan: -Advised cessation Code(s): F12.20 - CANNABIS DEPENDENCE, UNCOMPLICATED (7) Neuropathy Current Visit: No Status: Chronic Assessment & Plan: -hold gabapentin for now Code(s): G62.9 - POLYNEUROPATHY, UNSPECIFIED (8) Hypocalcemia Current Visit: No Status: Acute Assessment & Plan: -in the setting of hypoalbuminemia, corrected calcium 9.0 Code(s): E83.51 - HYPOCALCEMIA
[2023-08-20 05:52] LABS: Hematocrit 31.6 % (35-47); Hemoglobin 10.4 g/dL (12.0-16.0); Mean Cell Volume 110.1 fL (78-100); Mean Corpuscular Hemoglobin 36.2 pg (26-32); Mean Corpuscular Hgb Concent. 32.9 g/dL (32-36); Mean Platelet Volume 10.7 fL (7.5-11.0); Platelet Count 418 x10^3/uL (150-450); Red Blood Count 2.87 x10^6/uL (4.1-5.4); Red Cell Distribution Width 17.9 % (11.5-14.0); White Blood Count 4.5 x10^3/uL (4.0-10.5)
[2023-08-20 06:57] LABS: ALBUMIN 2.4 g/dL (3.5-5.0); ANION GAP 7.7 MEQ/L (5-15); BILIRUBIN,TOTAL 0.7 mg/dL (0.2-1.3); Calcium 7.9 mg/dL (8.4-10.2); Creatinine 1 0.37 mg/dL (0.52-1.04); EST GLOMERULAR FILTRATION RATE 129.1 ML/MIN; MAGNESIUM 1.7 mg/dL (1.6-2.3); PHOSPHOROUS 3.1 mg/dL (2.5-4.5); Potassium 3.6 mmol/L (3.5-5.1); TSH, 3RD Generation 3.02 mIU/L (0.47-4.68)
[2023-08-20 07:16] VITALS: RESP 16
[2023-08-20] MEDS ORDERED: Ativan 2 MG/1 ML VIAL IV PRN (07:27)
[2023-08-20] MEDS: Pepcid 20 MG PO SCH (08:47)
[2023-08-20] MEDS ORDERED: ENOXAPARIN SODIUM SQ SCH (10:00)
[2023-08-20] MEDS ORDERED: SODIUM BICARBONATE PO SCH (10:00)
[2023-08-20] MEDS ORDERED: VITAMIN B-1 100 MG PO SCH (10:00)
[2023-08-20] MEDS ORDERED: THERAGRAN MULTIVITAMIN PO SCH (10:00)
[2023-08-20] MEDS ORDERED: FOLATE 1 MG PO SCH (10:00)
--- NOTE | 2023-08-20 11:01 | PCM.DS ---
Discharge Summary Date of Admission: 08/19/23 19:25 Date of Discharge: 08/20/23 Admitting Physician: EMMETT STAUFFER MD Consults: Consults on Case 08/19/23 14:26 Tele-Health Consult ROUTINE Primary Care Provider: SARA MELLO Allergies Allergies azithromycin [From Zithromax] Adverse Reaction (Intermediate, Verified 08/19/23 13:53) Vomiting steroids Allergy (Severe, Uncoded 08/19/23 13:53) Swelling Hospital Summary - Hospital Course Hospital Course: Ms. oCtton is a 43 year old female with a PMHX of neuropathy and chronic EtOH/marijuana use who stopped about a week ago but presented to ED 08/19/23 with complaints of whole body numbness with some dysarthria after awakening from an afternoon nap. She was seen by neurology and is being worked up for CVA versus Wernickes encephalopathy. She was evaluated in the ER, given IVFs and has improved mentation. She takes Gabapentin on a regular basis but cannot recall if she took extra accidentally. CT head unremarkable study with no evidence of intraxial or extraxial hematomas. Lab findings remarkable for UDS positive for opiates and THC, mildly hyponatremic at 134, carbon dioxide at 19, lactic acid at 2.1, ast 111 a;l [jps 144. No overnight events noted. Patient no longer with symptoms. Discussed chronic alcoholism as the most likely cause of these symptoms. Discussed possible outpt treatment for alcoholism, patient would like to think about it. She will follow up with her PCP. Will send her home on folic acid, multivitamin, thiamine and discussed the importance of compliance. Patient requesting discharge and agreeable to plan. Discharge Note New Diagnosis: New Medications: Sodium bicarb, thiamine, folic acid Follow Up: Results pending: Outpatient testing to order: Latest Assessment & Plan (1) Hyponatremia Current Visit: No Status: Acute Assessment & Plan: -Most likely secondary to hypovolemia -IVF -TSH wnl -fluid restriction -Monitor renal/lytes daily Code(s): E87.1 - HYPO-OSMOLALITY AND HYPONATREMIA (2) Alcohol dependence Current Visit: Yes Status: Acute Assessment & Plan: -Patient states she quit one week ago, alcohol level negative in ED -loring hospital protocol Code(s): F10.20 - ALCOHOL DEPENDENCE, UNCOMPLICATED (3) Numbness Current Visit: Yes Status: Acute Assessment & Plan: Could be gabapentin excess, Wernickes, alcohol withdrawal seizures or CVA/TIA - symptoms resolved and mentation better -Neurology consulted, appreciated recs -thiamine/folic acid/multi vitamin -neuro checks -Monitor renal/lytes Code(s): R20.0 - ANESTHESIA OF SKIN (4) Lactic acidosis Current Visit: No Status: Acute Assessment & Plan: -likely for hypovolemia -IVF -trend lactic Code(s): E87.20 - ACIDOSIS, UNSPECIFIED (5) Smoker Current Visit: No Status: Acute Assessment & Plan: -Advised cessation -Nicotine patch prn Code(s): F17.200 - NICOTINE DEPENDENCE, UNSPECIFIED, UNCOMPLICATED (6) Tetrahydrocannabinol (THC) dependence Current Visit: No Status: Acute Assessment & Plan: -Advised cessation Code(s): F12.20 - CANNABIS DEPENDENCE, UNCOMPLICATED (7) Neuropathy Current Visit: No Status: Chronic Assessment & Plan: -hold gabapentin for now Code(s): G62.9 - POLYNEUROPATHY, UNSPECIFIED (8) Hypocalcemia Current Visit: No Status: Acute Assessment & Plan: -in the setting of hypoalbuminemia, corrected calcium 9.0 I spent 35 minutes [id number] with the patient on the day of discharge performing discharge exam, discussing hospital stay and discharge instructions with patient and caregivers, preparation of discharge records, prescriptions & referral forms and addressing any questions/concerns the patient had as documented above. - Vitals & Intake/Output Vital Signs: Vital Signs Temperature 97.4 F 08/20/23 07:15 Pulse Rate 82 08/20/23 07:15 Respiratory Rate 16 08/20/23 07:15 Blood Pressure 116/69 08/20/23 07:15 O2 Sat by Pulse Oximetry 98 08/20/23 07:15 Intake & Output: Intake & Output 08/17/23 08/18/23 08/19/23 08/20/23 11:59 11:59 11:59 11:59 Intake Total 960 Balance 960 Weight 53.7 kg - Lab Result Diagrams: 08/20/23 05:25 08/20/23 05:25 Lab Results-Last 24 Hrs: Lab Results-Last 24 Hours 08/19/23 08/19/23 08/19/23 Range/Units 14:13 14:13 14:22 WBC 5.3 (4.0-10.5) x10^3/uL RBC 3.19 L (4.1-5.4) x10^6/uL Hgb 11.5 L (12.0-16.0) g/dL Hct 34.8 L (35-47) % MCV 109.1 H (78-100) fL MCH 36.1 H (26-32) pg MCHC 33.0 (32-36) g/dL RDW 17.9 H (11.5-14.0) % Plt Count 399 (150-450) x10^3/uL MPV 10.3 (7.5-11.0) fL Gran % 53.6 (36.0-66.0) % Immature Gran % (Auto) 0.6 H (0.00-0.4) % Nucleat RBC Rel Count 0.0 (0.00-0.1) % Eos # (Auto) 0.08 (0-0.5) x10^3/uL Immature Gran # (Auto) 0.03 (0.00-0.03) x10^3u/L Absolute Lymphs (auto) 1.77 (1.0-4.6) x10^3/uL Absolute Monos (auto) 0.52 (0.0-1.3) x10^3/uL Absolute Nucleated RBC 0.00 (0.00-0.01) x10^3u/L Lymphocytes % 33.1 (24.0-44.0) % Monocytes % 9.7 (0.0-12.0) % Eosinophils % 1.5 (0.00-5.0) % Basophils % 1.5 (0.0-0.4) % Absolute Granulocytes 2.86 (1.4-6.9) x10^3/uL Basophils # 0.08 (0-0.4) x10^3/uL Ionized Calcium (1.12-1.32) mmol/L Sodium (137-145) mmol/L Potassium (3.5-5.1) mmol/L Chloride (98-107) mmol/L Carbon Dioxide (22-30) mmol/L Anion Gap (5-15) MEQ/L BUN (7-17) mg/dL Creatinine (0.52-1.04) mg/dL Estimated GFR ML/MIN Glucose (74-106) mg/dL POC Glucometer 95 95 (74 to 106) mg/dL Lactic Acid (0.4-2.0) Calcium (8.4-10.2) mg/dL Phosphorus (2.5-4.5) mg/dL Magnesium (1.6-2.3) mg/dL Total Bilirubin (0.2-1.3) mg/dL AST (14-36) U/L ALT (0-35) U/L Alkaline Phosphatase (38-126) U/L Serum Total Protein (6.3-8.2) g/dL Albumin (3.5-5.0) g/dL Prealbumin (17.6-36.0) mg/dL Lipase (23-300) U/L Vitamin B12 (239-931) pg/mL Folic Acid (2.76 - >20) ng/mL Thyroxine (T4) (5.53-10.96) ug/dL TSH 3rd Generation (0.47-4.68) mIU/L Serum HCG, Qual (NEGATIVE) Urine Color (Yellow) Urine Appearance (Clear) Urine pH (4.6-8.0) Ur Specific [place] (1.005-1.030) Urine Protein (Negative) Urine Glucose (UA) (Negative) mg/dL Urine Ketones (Negative) Urine Blood (Negative) Urine Nitrite (Negative) Urine Bilirubin (Negative) Urine Urobilinogen (0.2) mg/dL Ur Leukocyte Esterase (Negative) U Hyaline Cast (Auto) (0-2) /LPF Urine Microscopic RBC (0-5) /HPF Urine Microscopic WBC (0-5) /HPF Ur Epithelial Cells (None Seen) /HPF Urine Bacteria (None Seen) /HPF Urine Culture Reflexed (NO) Urine Opiates Level (NEGATIVE) Ur Methadone (NEGATIVE) Urine Barbiturates (NEGATIVE) Ur Phencyclidine (PCP) (NEGATIVE) Urine Amphetamine (NEGATIVE) U Benzodiazepine Level (NEGATIVE) Urine Cocaine (NEGATIVE) Urine Marijuana (THC) (NEGATIVE) Ethyl Alcohol (0-10) mg/dL 08/19/23 08/19/23 08/19/23 Range/Units 14:38 14:38 14:50 WBC (4.0-10.5) x10^3/uL RBC (4.1-5.4) x10^6/uL Hgb (12.0-16.0) g/dL Hct (35-47) % MCV (78-100) fL MCH (26-32) pg MCHC (32-36) g/dL RDW (11.5-14.0) % Plt Count (150-450) x10^3/uL MPV (7.5-11.0) fL Gran % (36.0-66.0) % Immature Gran % (Auto) (0.00-0.4) % Nucleat RBC Rel Count (0.00-0.1) % Eos # (Auto) (0-0.5) x10^3/uL Immature Gran # (Auto) (0.00-0.03) x10^3u/L Absolute Lymphs (auto) (1.0-4.6) x10^3/uL Absolute Monos (auto) (0.0-1.3) x10^3/uL Absolute Nucleated RBC (0.00-0.01) x10^3u/L Lymphocytes % (24.0-44.0) % Monocytes % (0.0-12.0) % Eosinophils % (0.00-5.0) % Basophils % (0.0-0.4) % Absolute Granulocytes (1.4-6.9) x10^3/uL Basophils # (0-0.4) x10^3/uL Ionized Calcium (1.12-1.32) mmol/L Sodium (137-145) mmol/L Potassium (3.5-5.1) mmol/L Chloride (98-107) mmol/L Carbon Dioxide (22-30) mmol/L Anion Gap (5-15) MEQ/L BUN (7-17) mg/dL Creatinine (0.52-1.04) mg/dL Estimated GFR ML/MIN Glucose (74-106) mg/dL POC Glucometer (74 to 106) mg/dL Lactic Acid 2.1 H (0.4-2.0) Calcium (8.4-10.2) mg/dL Phosphorus (2.5-4.5) mg/dL Magnesium (1.6-2.3) mg/dL Total Bilirubin (0.2-1.3) mg/dL AST (14-36) U/L ALT (0-35) U/L Alkaline Phosphatase (38-126) U/L Serum Total Protein (6.3-8.2) g/dL Albumin (3.5-5.0) g/dL Prealbumin (17.6-36.0) mg/dL Lipase (23-300) U/L Vitamin B12 (239-931) pg/mL Folic Acid (2.76 - >20) ng/mL Thyroxine (T4) (5.53-10.96) ug/dL TSH 3rd Generation (0.47-4.68) mIU/L Serum HCG, Qual (NEGATIVE) Urine Color Dark Yellow A (Yellow) Urine Appearance Clear (Clear) Urine pH 6.0 (4.6-8.0) Ur Specific [place] 1.015 (1.005-1.030) Urine Protein Negative (Negative) Urine Glucose (UA) Negative (Negative) mg/dL Urine Ketones 40 A (Negative) Urine Blood Negative (Negative) Urine Nitrite Negative (Negative) Urine Bilirubin Small A (Negative) Urine Urobilinogen 1.0 A (0.2) mg/dL Ur Leukocyte Esterase Negative (Negative) U Hyaline Cast (Auto) NONE SEEN (0-2) /LPF Urine Microscopic RBC 0-2 (0-5) /HPF Urine Microscopic WBC 0-2 (0-5) /HPF Ur Epithelial Cells None Seen (None Seen) /HPF Urine Bacteria None Seen (None Seen) /HPF Urine Culture Reflexed NO (NO) Urine Opiates Level POSITIVE A (NEGATIVE) Ur Methadone NEGATIVE (NEGATIVE) Urine Barbiturates NEGATIVE (NEGATIVE) Ur Phencyclidine (PCP) NEGATIVE (NEGATIVE) Urine Amphetamine NEGATIVE (NEGATIVE) U Benzodiazepine Level NEGATIVE (NEGATIVE) Urine Cocaine NEGATIVE (NEGATIVE) Urine Marijuana (THC) POSITIVE A (NEGATIVE) Ethyl Alcohol (0-10) mg/dL 08/19/23 08/19/23 08/19/23 Range/Units 15:00 15:00 15:23 WBC (4.0-10.5) x10^3/uL RBC (4.1-5.4) x10^6/uL Hgb (12.0-16.0) g/dL Hct (35-47) % MCV (78-100) fL MCH (26-32) pg MCHC (32-36) g/dL RDW (11.5-14.0) % Plt Count (150-450) x10^3/uL MPV (7.5-11.0) fL Gran % (36.0-66.0) % Immature Gran % (Auto) (0.00-0.4) % Nucleat RBC Rel Count (0.00-0.1) % Eos # (Auto) (0-0.5) x10^3/uL Immature Gran # (Auto) (0.00-0.03) x10^3u/L Absolute Lymphs (auto) (1.0-4.6) x10^3/uL Absolute Monos (auto) (0.0-1.3) x10^3/uL Absolute Nucleated RBC (0.00-0.01) x10^3u/L Lymphocytes % (24.0-44.0) % Monocytes % (0.0-12.0) % Eosinophils % (0.00-5.0) % Basophils % (0.0-0.4) % Absolute Granulocytes (1.4-6.9) x10^3/uL Basophils # (0-0.4) x10^3/uL Ionized Calcium (1.12-1.32) mmol/L Sodium 134 L (137-145) mmol/L Potassium 3.6 (3.5-5.1) mmol/L Chloride 111 H (98-107) mmol/L Carbon Dioxide 19 L (22-30) mmol/L Anion Gap 8.4 (5-15) MEQ/L BUN 5 L (7-17) mg/dL Creatinine 0.43 L (0.52-1.04) mg/dL Estimated GFR 124.5 ML/MIN Glucose 88 (74-106) mg/dL POC Glucometer (74 to 106) mg/dL Lactic Acid (0.4-2.0) Calcium 8.0 L (8.4-10.2) mg/dL Phosphorus (2.5-4.5) mg/dL Magnesium 1.9 (1.6-2.3) mg/dL Total Bilirubin 0.70 (0.2-1.3) mg/dL AST 111 H (14-36) U/L ALT 18 (0-35) U/L Alkaline Phosphatase 144 H (38-126) U/L Serum Total Protein 5.8 L (6.3-8.2) g/dL Albumin 2.9 L (3.5-5.0) g/dL Prealbumin (17.6-36.0) mg/dL Lipase 43 (23-300) U/L Vitamin B12 721 (239-931) pg/mL Folic Acid 2.23 L (2.76 - >20) ng/mL Thyroxine (T4) 7.66 (5.53-10.96) ug/dL TSH 3rd Generation 1.470 (0.47-4.68) mIU/L Serum HCG, Qual NEGATIVE (NEGATIVE) Urine Color (Yellow) Urine Appearance (Clear) Urine pH (4.6-8.0) Ur Specific [place] (1.005-1.030) Urine Protein (Negative) Urine Glucose (UA) (Negative) mg/dL Urine Ketones (Negative) Urine Blood (Negative) Urine Nitrite (Negative) Urine Bilirubin (Negative) Urine Urobilinogen (0.2) mg/dL Ur Leukocyte Esterase (Negative) U Hyaline Cast (Auto) (0-2) /LPF Urine Microscopic RBC (0-5) /HPF Urine Microscopic WBC (0-5) /HPF Ur Epithelial Cells (None Seen) /HPF Urine Bacteria (None Seen) /HPF Urine Culture Reflexed (NO) Urine Opiates Level (NEGATIVE) Ur Methadone (NEGATIVE) Urine Barbiturates (NEGATIVE) Ur Phencyclidine (PCP) (NEGATIVE) Urine Amphetamine (NEGATIVE) U Benzodiazepine Level (NEGATIVE) Urine Cocaine (NEGATIVE) Urine Marijuana (THC) (NEGATIVE) Ethyl Alcohol < 10 (0-10) mg/dL 08/20/23 08/20/23 08/20/23 Range/Units 05:00 05:25 05:25 WBC 4.5 (4.0-10.5) x10^3/uL RBC 2.87 L (4.1-5.4) x10^6/uL Hgb 10.4 L (12.0-16.0) g/dL Hct 31.6 L (35-47) % MCV 110.1 H (78-100) fL MCH 36.2 H (26-32) pg MCHC 32.9 (32-36) g/dL RDW 17.9 H (11.5-14.0) % Plt Count 418 (150-450) x10^3/uL MPV 10.7 (7.5-11.0) fL Gran % (36.0-66.0) % Immature Gran % (Auto) (0.00-0.4) % Nucleat RBC Rel Count (0.00-0.1) % Eos # (Auto) (0-0.5) x10^3/uL Immature Gran # (Auto) (0.00-0.03) x10^3u/L Absolute Lymphs (auto) (1.0-4.6) x10^3/uL Absolute Monos (auto) (0.0-1.3) x10^3/uL Absolute Nucleated RBC (0.00-0.01) x10^3u/L Lymphocytes % (24.0-44.0) % Monocytes % (0.0-12.0) % Eosinophils % (0.00-5.0) % Basophils % (0.0-0.4) % Absolute Granulocytes (1.4-6.9) x10^3/uL Basophils # (0-0.4) x10^3/uL Ionized Calcium 1.11 L (1.12-1.32) mmol/L Sodium 135 L (137-145) mmol/L Potassium 3.6 (3.5-5.1) mmol/L Chloride 114 H (98-107) mmol/L Carbon Dioxide 17 L (22-30) mmol/L Anion Gap 7.7 (5-15) MEQ/L BUN 3 L (7-17) mg/dL Creatinine 0.37 L (0.52-1.04) mg/dL Estimated GFR 129.1 ML/MIN Glucose 75 (74-106) mg/dL POC Glucometer (74 to 106) mg/dL Lactic Acid (0.4-2.0) Calcium 7.9 L (8.4-10.2) mg/dL Phosphorus 3.1 (2.5-4.5) mg/dL Magnesium 1.7 (1.6-2.3) mg/dL Total Bilirubin 0.70 (0.2-1.3) mg/dL AST 78 H (14-36) U/L ALT 15 (0-35) U/L Alkaline Phosphatase 119 (38-126) U/L Serum Total Protein 5.0 L (6.3-8.2) g/dL Albumin 2.4 L (3.5-5.0) g/dL Prealbumin 17.00 L (17.6-36.0) mg/dL Lipase (23-300) U/L Vitamin B12 (239-931) pg/mL Folic Acid (2.76 - >20) ng/mL Thyroxine (T4) (5.53-10.96) ug/dL TSH 3rd Generation 3.020 (0.47-4.68) mIU/L Serum HCG, Qual (NEGATIVE) Urine Color (Yellow) Urine Appearance (Clear) Urine pH (4.6-8.0) Ur Specific [place] (1.005-1.030) Urine Protein (Negative) Urine Glucose (UA) (Negative) mg/dL Urine Ketones (Negative) Urine Blood (Negative) Urine Nitrite (Negative) Urine Bilirubin (Negative) Urine Urobilinogen (0.2) mg/dL Ur Leukocyte Esterase (Negative) U Hyaline Cast (Auto) (0-2) /LPF Urine Microscopic RBC (0-5) /HPF Urine Microscopic WBC (0-5) /HPF Ur Epithelial Cells (None Seen) /HPF Urine Bacteria (None Seen) /HPF Urine Culture Reflexed (NO) Urine Opiates Level (NEGATIVE) Ur Methadone (NEGATIVE) Urine Barbiturates (NEGATIVE) Ur Phencyclidine (PCP) (NEGATIVE) Urine Amphetamine (NEGATIVE) U Benzodiazepine Level (NEGATIVE) Urine Cocaine (NEGATIVE) Urine Marijuana (THC) (NEGATIVE) Ethyl Alcohol (0-10) mg/dL Micro Results-Entire Visit: Accuchecks Date 08/19/23 Time 14:14 - Radiology Exams Ordered Rad Exams-Entire Visit: Radiology Procedures Category Date Time Status HEAD WITHOUT CONTRAST [CT] Stat Exams 08/19/23 14:08 Completed Discharge Exam General Appearance: no apparent distress Neurologic Exam: alert, oriented x 3, cooperative Eye Exam: PERRL Ears, Nose, Throat Exam: normal ENT inspection Neck Exam: normal inspection Respiratory Exam: normal breath sounds, lungs clear Cardiovascular Exam: regular rate/rhythm, normal heart sounds Gastrointestinal/Abdomen Exam: soft, normal bowel sounds Pelvic Exam: deferred Rectal Exam: deferred Back Exam: normal inspection Extremity Exam: normal inspection Skin Exam: normal color Final Diagnosis/Problem List - Final Discharge Diagnosis/Problem (1) Hyponatremia Current Visit: No Status: Acute Code(s): E87.1 - HYPO-OSMOLALITY AND HYPONATREMIA (2) Alcohol dependence Current Visit: Yes Status: Acute Code(s): F10.20 - ALCOHOL DEPENDENCE, UNCOMPLICATED (3) Numbness Current Visit: Yes Status: Acute Code(s): R20.0 - ANESTHESIA OF SKIN (4) Lactic acidosis Current Visit: No Status: Acute Code(s): E87.20 - ACIDOSIS, UNSPECIFIED (5) Smoker Current Visit: No Status: Acute Code(s): F17.200 - NICOTINE DEPENDENCE, UNSPECIFIED, UNCOMPLICATED (6) Tetrahydrocannabinol (THC) dependence Current Visit: No Status: Acute Code(s): F12.20 - CANNABIS DEPENDENCE, UNCOMPLICATED (7) Neuropathy Current Visit: No Status: Chronic Code(s): G62.9 - POLYNEUROPATHY, UNSPECIFIED (8) Hypocalcemia Current Visit: No Status: Acute Code(s): E83.51 - HYPOCALCEMIA - Discharge Disposition: Home, Self-Care Condition: Stable Prescriptions: New Folic Acid 1 mg [Folate 1 mg] 1 mg PO DAILY 30 Days #30 tablet Sodium Bicarbonate 650 mg PO BID 5 Days #10 tablet Multivitamins,Therapeutic Tab* [Theragran Multivitamin] 1 tab PO QAM 30 D ays #30 tablet Thiamine HCl 100 mg [Vitamin B-1 100 mg] 100 mg PO DAILY 30 Days #30 tablet Continue Gabapentin 600 mg PO BID Nitrofurantoin Macro 100 mg [Macrobid 100MG Capsule] 100 mg PO BID Additional Instructions: Please contact Dr. Luc Sullivan at [facility] at [phone] on Monday Follow up with: SARA MELLO MD [Primary Care Provider] -
[2023-08-20 11:29] VITALS: BP 130/80; PULSE 75; TEMP 97.5; O2SAT 99
== END 2023-08-20 12:25 | disposition home or self-care (01) ==
LOC: ED 13:52 → MED SURG 19:25
PROVIDERS: ADMIT Internal Medicine Nephrology; ATTEND Internal Medicine Nephrology
DX: E87.1 Hypo-osmolality and hyponatremia (principal); F10.20 Alcohol dependence, uncomplicated; R20.0 Anesthesia of skin; E87.20 Acidosis, unspecified; F17.200 Nicotine dependence, unspecified, uncomplicated; F12.20 Cannabis dependence, uncomplicated; G62.9 Polyneuropathy, unspecified; E83.51 Hypocalcemia; R26.0 Ataxic gait; Z79.899 Other long term (current) drug therapy; Z20.828 Contact with and (suspected) exposure to other viral communicable diseases
CPT/HCPCS: 36000; 36415; 70450; 80053; 80307; 81001; 82077; 82330; 82607; 82746; 82947; 83605; 83690; 83735; 84100; 84134; 84425; 84436; 84443; 84703; 85025; 85027; 87086; 93005; 93041; 93268; 94760; 94762; 96374; 99285; G0378; P9612; Q3014; J1650; A9270-GY